=== PATIENT | female | born 1970 | race Hispanic/Latino ===

== ENCOUNTER 2018-02-22 18:11 | Emergency (ER) | payer BC, OTHER ==
[~2018-02-22] VITALS: Ht 154.9 cm; Wt 77.1 kg
[~2018-02-22 18:11] MED LIST: AMARYL2 MG PO; ASA81EC PO; Aspirin PO; BENICAR20 MG PO; BYSTOLIC10 MG PO; CATAPRES0.1 MG PO; CYCLOBENZAPRINE10 MG PO; DEXAMETHASONE1.5 MG PO; GLIMEPIRIDE2 MG PO; GLUCOPHAGE XL500 MG PO; HYDRALAZINE HCL25 MG PO; HYDROCET 5-5001 EACH PO; HYDROXYCHLOROQ200 MG PO; Hydralazine Hcl PO; Hydrochlorothiazide PO; JENTADUETO 2.51 EAC2 PO; LOPRESSOR25 MG PO; LYRICA75 MG PO; METFORMIN HCL500 MG PO; NUCYNTA75 MG PO; PEPCID20 MG PO; TRIBENZOR 40-11 EAC1 PO; TYLENOL # 31 EA PO; Z TRIBENZOR PO; Z.0.AMARYL2 MG PO; Z.0.BYSTOLIC5 MG; Z.0.LEVOTHYROXINE25 PO; Z.0.VICTOZA 2-0.6 MG IM; Z.1.ISOSORBIDE MONO6 PO; ZOCOR40 MG PO; [UNRECOGNIZED DRUG - MIXTURE] PO
[2018-02-22] MEDS ORDERED: DIATRIZOATE MEGL/DIATRIZOA SOD 30 ML BTL PO ONE (22:16)
[2018-02-22 22:28] LABS: BASOPHILS # (AUTO) 0.1 (0.0-0.1); BASOPHILS % 1.2 % (0.0-1.0); EOSINOPHILS # (AUTO) 0.2 (0.0-0.4); EOSINOPHILS % 2.8 % (0.0-6.0); HEMATOCRIT 43.9 % (34.2-44.1); HEMOGLOBIN 14.3 g/dL (12.0-16.0); LYMPHOCYTES # (AUTO) 2.2 (1.0-3.2); LYMPHOCYTES % 29.4 % (18.0-39.1); MEAN CORPUSCULAR HEMOGLOBIN 27.1 pg (28-32); MEAN CORPUSCULAR HGB CONC 32.6 g/dL (31-35); MEAN CORPUSCULAR VOLUME 83.1 fL (81-99); MONOCYTES # (AUTO) 0.8 (0.2-0.8); NEUTROPHILS # (AUTO) 4.1 (2.1-6.9); NEUTROPHILS % 55.5 % (38.7-80.0); PLATELET COUNT 214 x10e3/uL (140-360); RED BLOOD COUNT 5.28 x10e6/uL (3.6-5.1); RED CELL DISTRIBUTION WIDTH 13.7 % (11.7-14.4)
[2018-02-22 22:35] LABS: BILIRUBIN,URINE NEGATIVE (NEGATIVE); CLARITY,URINE SL CLOUDY (CLEAR); COLOR,URINE YELLOW (YELLOW); KETONES,URINE NEGATIVE (NEGATIVE); LEUKOCYTE ESTERASE ,URINE NEGATIVE (NEGATIVE); NITRITE,URINE NEGATIVE (NEGATIVE); PROTEIN,URINE DIPSTICK TRACE (NEGATIVE); URINE UROBILINOGEN 0.2 mg/dL (0.2 - 1)
[2018-02-22 22:36] LABS: PREGNANCY TEST, URINE NEGATIVE (NEGATIVE)
[2018-02-22 22:45] LABS: ALBUMIN 4.1 g/dL (3.5-5.0); ALBUMIN/GLOBULIN RATIO 1.1 (0.8-2.0); ANION GAP 11.8 mmol/L (8-16); CALCIUM 9.8 mg/dL (8.4-10.2); CREATININE, SERUM 1.18 mg/dL (0.57-1.11); POTASSIUM 3.8 mmol/L (3.5-5.1)
[2018-02-22] MEDS ORDERED: MORPHINE SULFATE 2 MG/ML SYR IV STA (22:52)
[2018-02-22 22:59] LABS: RBC,URINE 0-5 /HPF (0-5); WBC,URINE (MAN) 0-5 /HPF (0-5)
[2018-02-22 23:00] LABS: BACTERIA,URINE FEW /HPF; EPITHELIAL CELLS,URINE RARE /LPF
[2018-02-22] MEDS ORDERED: ONDANSETRON HCL 4 MG ORAL DISINTEGRATING TAB PO ONE (23:00)
--- NOTE | 2018-02-23 00:12 | Diagnostic Imaging Report ---
EXAM: CT Abdomen and Pelvis WITHOUT contrast INDICATION: Abdominal pain, left lower quadrant. COMPARISON: None. TECHNIQUE: Abdomen and pelvis were scanned utilizing a multidetector helical scanner from the lung base to the pubic symphysis without administration of IV contrast. Absence of intravenous contrast decreases sensitivity for detection of focal lesions and vascular pathology. Coronal and sagittal reformations were obtained. Routine protocol was performed. IV CONTRAST: None. ORAL CONTRAST: Gastrografin RADIATION DOSE: Total DLP: 568.72 mGy*cm Estimated effective dose: (DLP x 0.015 x size factor) mSv COMPLICATIONS: None FINDINGS: LINES and TUBES: None. LOWER THORAX: Unremarkable HEPATOBILIARY: No focal hepatic lesions. No biliary ductal dilation. GALLBLADDER: No radio-opaque stones or sludge. No wall thickening. SPLEEN: No splenomegaly. PANCREAS: No focal masses or ductal dilatation. ADRENALS: No adrenal nodules KIDNEYS/URETERS: No hydronephrosis. No cystic or solid mass lesions. No stones. GI TRACT: No abnormal distention, wall thickening, or evidence of bowel obstruction. Appendix is normal. PELVIC ORGANS/BLADDER: The uterus is absent. Bilateral ovaries are unremarkable. LYMPH NODES: No lymphadenopathy. VESSELS: Unremarkable. PERITONEUM / RETROPERITONEUM: No free air or fluid. BONES: There are moderate degenerative changes in the lower lumbar spine. SOFT TISSUES: Unremarkable. IMPRESSION: 1. No evidence of acute intra-abdominal or pelvic abnormality. Signed by: Dr. Nabeel Corey M.D. on 02/23/2018 12:08 AM
[2018-02-23 00:57] VITALS: BP 154/96
== END 2018-02-23 01:26 | disposition home or self-care (01) ==
LOC: ER 18:11
DX: R10.32 Left lower quadrant pain (principal); R11.0 Nausea; I10 Essential (primary) hypertension; E11.9 Type 2 diabetes mellitus without complications; E78.5 Hyperlipidemia, unspecified
CPT/HCPCS: 36415; 74176; 80053; 81001; 81025; 82150; 83690; 85025; 99284; J2270

== ENCOUNTER 2019-01-22 15:50 | Emergency (ER) | payer BC, OTHER ==
[~2019-01-22] VITALS: Ht 154.9 cm; Wt 77.1 kg
--- OUTSIDE RECORDS SUMMARY | 2019-01-22 15:52 | XMS REPORT ---
Author Author [facility] Address Unknown Phone Unavailable Care Team Providers Care Hop Separator Name Role Phone Calli OTERO Unavailable Unavailable Problems This patient has no known problems. Allergies, Adverse Reactions, Alerts This patient has no known allergies or adverse reactions. Medications This patient has no known medications. Results Test Description Test Time Test Comments Text Results Atomic Results Result Comments CT ABDOMEN/PELVIS WO 2018-02-23 00:06:00 [place] [address] Patient Name: IRENA VILLEGAS MR #: [id number] : 1970 Age/Sex: 48/F Req #: [id number] Adm Physician: Ordered by: SHERIN SALDAÑA MD Report #: [id number] Location: ER Room/Bed: Procedure: [id number] CT/CT ABDOMEN/PELVIS WO Exam Date: Exam Time: REPORT STATUS: Signed EXAM: CT Abdomen and Pelvis WITHOUT contrast INDICATION: Abdominal pain, left lower quadrant. COMPARISON: None. TECHNIQUE: Abdomen and pelvis were scanned utilizing a multidetector helical scanner from the lung base to the pubic symphysis without administration of IV contrast. Absence of intravenous contrast decreases sensitivity for detection of focal lesions and vascular pathology. Coronal and sagittal reformations were obtained. Routine protocol was performed. IV CONTRAST: None. ORAL CONTRAST: Gastrografin RADIATION DOSE: Total DLP: 568.72 mGy*cm Estimated effective dose: (DLP x 0.015 x size factor) mSv COMPLICATIONS: None FINDINGS: LINES and TUBES: None. LOWER THORAX: Unremarkable HEPATOBILIARY: No focal hepatic lesions. No biliary ductal dilation. GALLBLADDER: No radio-opaque stones or sludge. No wall thickening. SPLEEN: No splenomegaly. PANCREAS: No focal masses or ductal dilatation. ADRENALS: No adrenal nodules KIDNEYS/URETERS: No hydronephrosis. No cystic or solid mass lesions. No stones. GI TRACT: No abnormal distention, wall thickening, or evidence of bowel obstruction. Appendix is normal. PELVIC ORGANS/BLADDER: The uterus is absent. Bilateral ovaries are unremarkable. LYMPH NODES: No lymphadenopathy. VESSELS: Unremarkable. PERITONEUM / RETROPERITONEUM: No free air or fluid. BONES: There are moderate degenerative changes in the lower lumbar spine. SOFT TISSUES: Unremarkable. IMPRESSION: 1. No evidence of acute intra-abdominal or pelvic abnormality. Signed by: Dr. Nabeel Corey M.D. on 02/23/2018 12:08 AM Dictated By: NABEEL DUDLEY MD COPY TO: SHERIN SALDAÑA MD
[2019-01-22 16:41] LABS: BASOPHILS # (AUTO) 0.1 (0.0-0.1); BASOPHILS % 1.1 % (0.0-1.0); EOSINOPHILS # (AUTO) 0.1 (0.0-0.4); EOSINOPHILS % 1.5 % (0.0-6.0); HEMOGLOBIN 13.9 g/dL (12.0-16.0); LYMPHOCYTES # (AUTO) 1.6 (1.0-3.2); LYMPHOCYTES % 21.2 % (18.0-39.1); MEAN CORPUSCULAR HEMOGLOBIN 27.1 pg (28-32); MEAN CORPUSCULAR HGB CONC 32.3 g/dL (31-35); MONOCYTES # (AUTO) 0.8 (0.2-0.8); MONOCYTES % 10.4 % (4.4-11.3); NEUTROPHILS # (AUTO) 4.9 (2.1-6.9); NEUTROPHILS % 65.5 % (38.7-80.0); PLATELET COUNT 210 x10e3/uL (140-360); RED BLOOD COUNT 5.12 x10e6/uL (3.6-5.1); RED CELL DISTRIBUTION WIDTH 13.2 % (11.7-14.4)
[2019-01-22 16:49] LABS: INR 0.86; PROTHROMBIN TIME 12.2 seconds (11.9-14.5)
[2019-01-22 16:50] LABS: PARTIAL THROMBOPLASTIN TIME 27.1 seconds (23.8-35.5)
[2019-01-22 16:56] LABS: ALANINE AMINOTRANSFERASE 48 IU/L (0-55); ALBUMIN 3.5 g/dL (3.5-5.0); ALKALINE PHOSPHATASE 119 IU/L (40-150); ANION GAP 12.9 mmol/L (8-16); BLOOD UREA NITROGEN 20 mg/dL (7-26); BUN/CREATININE RATIO 16 (6-25); CALCIUM 9.7 mg/dL (8.4-10.2); CARBON DIOXIDE 25 mmol/L (22-29); CHLORIDE 99 mmol/L (98-107); CREATINE KINASE 114 IU/L (29-168); CREATININE, SERUM 1.24 mg/dL (0.57-1.11); EST GLOMERULAR FILTRATION RATE 46 ML/MIN (60-); POTASSIUM 3.9 mmol/L (3.5-5.1); SODIUM 133 mmol/L (136-145)
[2019-01-22 16:59] LABS: GLUCOSE 484 mg/dL (74-118)
[2019-01-22] MEDS ORDERED: DEXTROSE 50% SYRINGE 50 ML IV STA (17:04)
[2019-01-22] MEDS ORDERED: DEXTROSE 50% SYRINGE 50 ML IV ONE (17:08)
[2019-01-22 17:16] LABS: CLARITY,URINE SL CLOUDY (CLEAR); COLOR,URINE YELLOW (YELLOW); LEUKOCYTE ESTERASE ,URINE NEGATIVE (NEGATIVE); NITRITE,URINE NEGATIVE (NEGATIVE); PROTEIN,URINE DIPSTICK 1+ (NEGATIVE)
[2019-01-22 17:17] LABS: BILIRUBIN,URINE NEGATIVE (NEGATIVE); KETONES,URINE NEGATIVE (NEGATIVE)
[2019-01-22 17:19] LABS: AMPHETAMINES SCREEN,URINE NEGATIVE (NEGATIVE); BENZODIAZEPINES SCREEN,URINE NEGATIVE (NEGATIVE); PHENCYCLIDINE SCREEN,URINE NEGATIVE (NEGATIVE); URINE UROBILINOGEN 0.2 mg/dL (0.2 - 1)
--- NOTE | 2019-01-22 17:24 | Diagnostic Imaging Report ---
EXAMINATION: CHEST 2 VIEWS INDICATION: Chest pain. COMPARISON: None FINDINGS: TUBES and LINES: None. LUNGS: Bibasilar subsegmental atelectasis. There is no evidence of pneumonia or pulmonary edema. PLEURA: No pleural effusion or pneumothorax. HEART AND MEDIASTINUM: The cardiomediastinal silhouette is unremarkable. BONES AND SOFT TISSUES: No acute osseous lesion. Soft tissues are unremarkable. UPPER ABDOMEN: No free air under the diaphragm. IMPRESSION: No acute thoracic abnormality. Signed by: Dr. Justin Koo M.D. on 01/22/2019 5:20 PM
[2019-01-22 17:28] LABS: BACTERIA,URINE MANY /HPF; EPITHELIAL CELLS,URINE MODERATE /LPF
--- NOTE | 2019-01-22 17:34 | Diagnostic Imaging Report ---
History: Headaches, high blood pressure Comparison studies: None Technique: Axial images were obtained from the skull base to the vertex. Coronal and sagittal reconstructions obtained from the axial data. Dose modulation, iterative reconstruction, and/or weight based adjustment of the mA/kV was utilized to reduce the radiation dose to as low as reasonably achievable. Intravenous contrast: None Findings: Scalp/skull: No abnormalities. No fractures, blastic or lytic lesions. Extra-axial spaces: No masses. No fluid collections. Brain sulci: Appropriate for age. Ventricles: Normal in size and configuration. No hydrocephalus. Parenchyma: A focal CSF like hypodense chronic lacunar insult is centered in the lateral aspect of the right putamen. No masses, hemorrhage, acute or chronic cortical vascular insults. Sellar/suprasellar region: No abnormalities Craniocervical junction: Patent foramen magnum. No Chiari one malformation. IMPRESSION: 1. No acute abnormalities. 2. 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 Signed by: Dr. Desean Donovan M.D. on 01/22/2019 5:30 PM
[2019-01-22] MEDS ORDERED: SODIUM CHLORIDE 0.9% 1000ML 1,000 ML IV STA (19:15)
[2019-01-22] MEDS ORDERED: INSULIN REGULAR, HUMAN 100 UNIT/1 ML 3ML VIAL IV ONE (19:15)
== END 2019-01-22 21:31 | disposition home or self-care (01) ==
LOC: ER 15:50
DX: R53.1 Weakness (principal); E11.65 Type 2 diabetes mellitus with hyperglycemia; I10 Essential (primary) hypertension; E78.5 Hyperlipidemia, unspecified
CPT/HCPCS: 36415; 70450; 71046; 80053; 80307; 81001; 82550; 82553; 82948; 83880; 84484; 85025; 85610; 85730; 93005; 99284; J1817; J7030; J7799

== ENCOUNTER 2019-08-30 22:57 | Observation (INO) | payer BC ==
[~2019-08-30] VITALS: Ht 154.9 cm; Wt 77.6 kg
[2019-08-30] MEDS ORDERED: ASPIRIN 81 MG CHEW TAB PO ONE (23:30)
[2019-08-30 23:45] LABS: BASOPHILS # (AUTO) 0.1 (0.0-0.1); BASOPHILS % 0.8 % (0.0-1.0); EOSINOPHILS # (AUTO) 0.1 (0.0-0.4); EOSINOPHILS % 2.4 % (0.0-6.0); HEMATOCRIT 41.6 % (34.2-44.1); HEMOGLOBIN 13.2 g/dL (12.0-16.0); LYMPHOCYTES # (AUTO) 1.6 (1.0-3.2); LYMPHOCYTES % 26.8 % (18.0-39.1); MEAN CORPUSCULAR HEMOGLOBIN 26.6 pg (28-32); MEAN CORPUSCULAR HGB CONC 31.7 g/dL (31-35); MEAN CORPUSCULAR VOLUME 83.9 fL (81-99); MONOCYTES # (AUTO) 0.6 (0.2-0.8); MONOCYTES % 10.9 % (4.4-11.3); NEUTROPHILS # (AUTO) 3.5 (2.1-6.9); NEUTROPHILS % 58.8 % (38.7-80.0); PLATELET COUNT 184 x10e3/uL (140-360); RED BLOOD COUNT 4.96 x10e6/uL (3.6-5.1); RED CELL DISTRIBUTION WIDTH 14.1 % (11.7-14.4)
[2019-08-31] VITALS (9 sets, daily range): BP systolic 154–189; BP diastolic 79–93
[2019-08-31 00:11] LABS: ALBUMIN 3.2 g/dL (3.5-5.0); ALBUMIN/GLOBULIN RATIO 0.9 (0.8-2.0); ANION GAP 13.7 mmol/L (8-16); CALCIUM 9.1 mg/dL (8.4-10.2); CREATININE, SERUM 1.21 mg/dL (0.57-1.11); POTASSIUM 3.7 mmol/L (3.5-5.1)
[2019-08-31 00:17] LABS: CREATINE KINASE MB 3.1 ng/mL (0-5.0)
[2019-08-31] MEDS ORDERED: HYDRALAZINE HCL 20 MG/ML VIAL ONE (00:23)
[2019-08-31] MEDS ORDERED: HYDRALAZINE HCL 20 MG/ML VIAL IV ONE (00:30)
--- NOTE | 2019-08-31 00:50 | NUR ---
patient informed in room regarding elevated glucose, patient states, " im sorry i didnt tell you but rich had a couple of beers", notified
[2019-08-31] MEDS ORDERED: INSULIN REGULAR, HUMAN 100 UNIT/1 ML 3ML VIAL SQ ONE (01:00)
--- NOTE | 2019-08-31 02:56 | Diagnostic Imaging Report ---
EXAMINATION: CHEST SINGLE (PORTABLE) INDICATION: Chest pain COMPARISON: Chest x-ray 01/22/2019 FINDINGS: TUBES and LINES: None. LUNGS: Lungs are well inflated. Lungs are clear. There is no evidence of pneumonia or pulmonary edema. PLEURA: No pleural effusion or pneumothorax. HEART AND MEDIASTINUM: The cardiomediastinal silhouette is unremarkable. BONES AND SOFT TISSUES: No acute osseous lesion. Soft tissues are unremarkable. UPPER ABDOMEN: No free air under the diaphragm. IMPRESSION: No acute thoracic radiographic abnormality. Signed by: Manuelito Velasco DO on 08/31/2019 2:53 AM
[2019-08-31] MEDS ORDERED: METOPROLOL TARTRATE INJ 1 MG/ML VIAL IV ONE (03:00)
[2019-08-31] MEDS ORDERED: METOPROLOL TARTRATE INJ 1 MG/ML VIAL IV PRN (03:15)
[2019-08-31] MEDS ORDERED: AMLODIPINE BESYL5 MG PO (04:59)
[2019-08-31] MEDS ORDERED: ACETAMINOPHEN 325 MG TAB PO PRN (05:30)
[2019-08-31] MEDS ORDERED: ONDANSETRON HCL INJ 2MG/ML 2ML 2 MG/ML VIAL IV PRN (05:30)
[2019-08-31] MEDS ORDERED: DEXTROSE 50% SYRINGE 50 ML IV PRN (05:30)
[2019-08-31] MEDS ORDERED: ASPIRIN CHEW81 MG PO (05:37)
[2019-08-31] MEDS: METOPROLOL TARTRATE 25 MG TAB PO SCH ×3 (06:01→20:28)
[2019-08-31 07:32] LABS: CHOL/HDL RATIO 2.5 (3.0-3.6)
[2019-08-31 07:39] LABS: THYROID STIMULATING HORMONE 1.769 uIU/mL (0.350-4.940)
[2019-08-31 07:59] LABS: CREATINE KINASE MB 2.2 ng/mL (0-5.0)
[2019-08-31] MEDS: INSULIN LISPRO 100 UNIT/1 ML 3ML VIAL SQ SCH ×4 (08:00→21:05)
[2019-08-31] MEDS: AMLODIPINE BESYLATE 5 MG TAB PO SCH (08:00)
[2019-08-31] MEDS: ASPIRIN 81 MG CHEW TAB PO SCH (08:00)
[2019-08-31 09:23] LABS: B-TYPE NATRIURETIC PEPTIDE2 25.2 pg/mL (0-100)
[2019-08-31] MEDS: VALSARTAN 160 MG TAB PO SCH (13:24)
[2019-08-31] MEDS: CHLORTHALIDONE 25 MG TAB PO SCH (13:25)
[2019-08-31 14:50] LABS: CREATINE KINASE MB 1.5 ng/mL (0-5.0)
[2019-08-31] MEDS: INSULIN ASPART 70/30 100 UNITS/ML VIAL SC SCH (16:50)
--- NOTE | 2019-08-31 18:07 | Consultation ---
DATE OF CONSULTATION: 08/31/2019 Cardiac Consultation REASON FOR CONSULTATION: Hypertension. HISTORY OF PRESENT ILLNESS: Ms. Mariee is a 49-year-old female. She is well known to my practice. She has been noncompliant with medications as well as followup in the office. She comes in with chest pain and blood pressure that is markedly elevated in excess of 180 at the time of admission. Her blood pressure now is better controlled, still 170s to 190s. She admits to have missed her medications. PAST MEDICAL HISTORY: Listed above. ALLERGIES: PROMETHAZINE. SOCIAL HISTORY: The patient does not drink or smoke. 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 REVIEW OF SYSTEMS: Negative except as dictated in the History of Present Illness. PHYSICAL EXAMINATION: VITAL SIGNS: Afebrile, heart rate 74, and blood pressure 189/88. CARDIOVASCULAR: Regular rhythm. Systolic murmur. S4 gallop. LUNGS: Clear to auscultation bilaterally. ABDOMEN: Soft. MEDICATIONS: Reviewed. LABORATORY DATA: Telemetry shows sinus rhythm. Cardiac enzymes are negative. ASSESSMENT: 1. Hypertensive urgency. 2. Unstable angina. RECOMMENDATIONS: Echocardiogram and exercise nuclear stress test. Medication adjustment for better control of blood pressure. Compliance with followup and medications was stressed to the patient as well as her . I thank, Dr. Houston, for this consult. MD ELVA Lucio/JESSICA /[id number]
[2019-08-31] MEDS ORDERED: SIMVASTATIN 40 MG TAB PO SCH (21:00)
[2019-08-31] MEDS ORDERED: INSULIN GLARGINE 100 UNITS/ML VIAL SQ SCH (21:00)
[2019-09-01] VITALS: BP 166/97
[2019-09-01 03:13] LABS: BASOPHILS # (AUTO) 0.1 (0.0-0.1); BASOPHILS % 1.1 % (0.0-1.0); EOSINOPHILS # (AUTO) 0.2 (0.0-0.4); EOSINOPHILS % 3.2 % (0.0-6.0); HEMATOCRIT 39.9 % (34.2-44.1); HEMOGLOBIN 12.7 g/dL (12.0-16.0); LYMPHOCYTES # (AUTO) 2.2 (1.0-3.2); LYMPHOCYTES % 31.4 % (18.0-39.1); MEAN CORPUSCULAR HGB CONC 31.8 g/dL (31-35); MEAN CORPUSCULAR VOLUME 84.9 fL (81-99); MONOCYTES # (AUTO) 0.7 (0.2-0.8); MONOCYTES % 10.2 % (4.4-11.3); NEUTROPHILS # (AUTO) 3.8 (2.1-6.9); PLATELET COUNT 165 x10e3/uL (140-360); RED CELL DISTRIBUTION WIDTH 14.4 % (11.7-14.4)
[2019-09-01] MEDS ORDERED: HYDRALAZINE HCL 20 MG/ML VIAL IV PRN (03:30)
[2019-09-01 03:32] LABS: ANION GAP 14.5 mmol/L (8-16); BUN/CREATININE RATIO 24 (6-25); CARBON DIOXIDE 21 mmol/L (22-29); CHLORIDE 104 mmol/L (98-107); CREATININE, SERUM 0.96 mg/dL (0.57-1.11); EST GLOMERULAR FILTRATION RATE > 60 ML/MIN (60-); GLUCOSE 221 mg/dL (74-118); POTASSIUM 3.5 mmol/L (3.5-5.1); SODIUM 136 mmol/L (136-145)
[2019-09-01 03:39] LABS: BLOOD UREA NITROGEN 23 mg/dL (7-26)
[2019-09-01 04:00] VITALS: BP 181/84
[2019-09-01 04:12] VITALS: BP 145/69
[2019-09-01] MEDS ORDERED: Insulin Aspart 70/30 10ML Vial SC (05:06)
[2019-09-01] MEDS ORDERED: CHLORTHALIDONE25 MG PO (05:06)
[2019-09-01] MEDS ORDERED: Insulin Glargine SQ (05:06)
[2019-09-01] MEDS ORDERED: DIOVAN160 MG PO (05:06)
[2019-09-01] MEDS ORDERED: Insulin Lispro SQ (05:06)
[2019-09-01] MEDS: INSULIN ASPART 70/30 100 UNITS/ML VIAL SC SCH ×3 (07:30→16:51)
[2019-09-01] MEDS: INSULIN LISPRO 100 UNIT/1 ML 3ML VIAL SQ SCH ×3 (07:30→16:51)
[2019-09-01 07:51] VITALS: BP 152/93
[2019-09-01] MEDS: ASPIRIN 81 MG CHEW TAB PO SCH (09:00)
[2019-09-01] MEDS: VALSARTAN 160 MG TAB PO SCH (09:00)
[2019-09-01] MEDS: AMLODIPINE BESYLATE 5 MG TAB PO SCH (09:00)
[2019-09-01] MEDS: CHLORTHALIDONE 25 MG TAB PO SCH (09:00)
[2019-09-01] MEDS ORDERED: REGADENOSON 0.4 MG/5 ML SYR IV ONE (09:50)
--- NOTE | 2019-09-01 10:00 | NUR ---
Pt taken to [facility] at this time for stress test, Pt has been NPO since midnight.
[2019-09-01 10:17] VITALS: BP 152/93
--- NOTE | 2019-09-01 12:30 | NUR ---
Pt came back from stress test at this time. Denies any pain at this time. Pt is aox4 and able to verbalize needs.
--- NOTE | 2019-09-01 15:20 | NUR ---
Spoke with Dr. Lewis, cardiology at this time to ask when he will read stress test. Dr. Lewis states that he will be rounding later today to read stress test. Attending was notified.
[2019-09-01 15:46] VITALS: BP 137/80
[2019-09-01] MEDS: METOPROLOL TARTRATE 25 MG TAB PO SCH (16:51)
--- NOTE | 2019-09-01 19:37 | NUR ---
Pt discharged with all personal belongings. Pt teaching was done for insulin administration and pt verbalized understanding of insulin administration. Pt was able to correctly demonstrate correct insulin administration. Verbalized understanding of all discharge instructions.
--- NOTE | 2019-09-02 05:44 | Discharge Summary ---
ADMISSION DIAGNOSES: Chest pain, chronic systolic congestive heart failure, hypertension with chronic systolic congestive heart failure, type 2 diabetes, obesity with a BMI of 32.1. DISCHARGE DIAGNOSES: Chest pain, chronic systolic congestive heart failure, hypertension with chronic systolic congestive heart failure, type 2 diabetes, obesity with a BMI of 32.1., plus rule out myocardial infarction. HISTORY: Type 2 diabetes and hypertension. SURGICAL HISTORY: Right carpal tunnel release and partial hysterectomy. FAMILY HISTORY: The patient's mom and uncle had diabetes. The patient's grandpa had cancer. SOCIAL HISTORY: Occasional alcohol use. HOSPITAL COURSE: A 49-year-old female admits with complaints of substernal chest pain that began yesterday after getting out of the shower. The pain radiated to her back. She denies associated diaphoresis, shortness of breath, and dizziness. She also denies any recent illness. Once in the ER, her symptoms resolved. Troponins were negative x3. EKG showed normal sinus rhythm. Chest x-ray was negative. Echo showed an EF of 55 plus percent. A1c was 15.1%. TSH was within normal limits. Per Cardiology, the patient was taken to [facility] for a stress test, which was negative. The patient will discharge home with new prescriptions for aspirin, chlorthalidone, and valsartan per Cardiology along with insulin 70/30 of 10 units before meals, Lantus 20 units at bedtime, and sliding scale before meals and at bedtime. The patient will follow up with primary care and Cardiology in 1 to 2 weeks. The patient understands discharge instructions and agrees to plan. Vital signs are stable, the patient is afebrile. Dictated by Vivian Powell NP MD KENDRA Abarca/MODL /[id number]
--- NOTE | 2019-09-04 15:16 | Myoview Stress Test ---
DATE OF STUDY: 08/31/2019 12:52:00 Stress Test - Treadmill ONLY PROCEDURE TITLE: Rest/stress single isotope SPECT imaging with pharmacologic stress and gated SPECT imaging. INDICATION: Chest pain. PROCEDURE IN DETAIL: Pharmacologic stress testing was performed with regadenoson per protocol. The heart rate was 90 beats per minute at rest and increased to 99 beats per minute during the regadenoson infusion. The resting blood pressure was 125/71 mmHg and decreased to 99/60 mmHg, which is a normal response. The resting electrocardiogram demonstrated normal sinus rhythm. There were no ST-segment changes suggestive of myocardial ischemia. Myocardial perfusion imaging was performed at rest following injection of 11 mCi of tetrofosmin. At peak pharmacologic effect, the patient injected with 32 millicuries of tetrofosmin. Gated post-stress tomographic imaging was performed. FINDINGS: The overall quality of the study is fair. Left ventricular cavity is noted to be normal size on the rest and stress studies. SPECT images demonstrate homogeneous tracer distribution throughout the myocardium. Gated SPECT imaging reveals normal myocardial thickening and wall motion. The left ventricular ejection fraction was calculated to be 70%. IMPRESSION: Myocardial perfusion imaging is normal. Overall left ventricular systolic function was normal without regional wall motion abnormalities. Yareli Flores MD ABS/MODL /[id number]
== END 2019-09-01 18:45 | disposition home or self-care (01) ==
LOC: ER 22:57 → ERHOLD 08-31 02:19 → MED/SURG 08-31 03:25
PROVIDERS: ADMIT Internal Medicine; ATTEND Internal Medicine
DX: I11.0 Hypertensive heart disease with heart failure (principal); I50.22 Chronic systolic (congestive) heart failure; E66.9 Obesity, unspecified; Z68.32 Body mass index [BMI] 32.0-32.9, adult; I20.0 Unstable angina
CPT/HCPCS: 36415 ×3; 71045; 78452; 80048; 80053; 80061; 82550 ×2; 82553 ×2; 82948 ×2; 83036; 83880; 84443; 84484 ×2; 85025 ×2; 93005; 93017; 93306; 99284; A9502; G0378 ×2; J0360 ×2; J1815; J1817; J2785

== ENCOUNTER → 2020-03-18 | Day surgery (SDC) | payer BC ==
[2020-03-15 13:01] LABS: BASOPHILS # (AUTO) 0.1 (0.0-0.1); BASOPHILS % 1.5 % (0.0-1.0); EOSINOPHILS # (AUTO) 0.2 (0.0-0.4); EOSINOPHILS % 3.1 % (0.0-6.0); HEMATOCRIT 44.5 % (34.2-44.1); HEMOGLOBIN 13.7 g/dL (12.0-16.0); LYMPHOCYTES # (AUTO) 1.3 (1.0-3.2); LYMPHOCYTES % 25.8 % (18.0-39.1); MEAN CORPUSCULAR HEMOGLOBIN 26.8 pg (28-32); MEAN CORPUSCULAR HGB CONC 30.8 g/dL (31-35); MEAN CORPUSCULAR VOLUME 87.1 fL (81-99); MONOCYTES # (AUTO) 0.6 (0.2-0.8); MONOCYTES % 11.9 % (4.4-11.3); NEUTROPHILS % 57.5 % (38.7-80.0); PLATELET COUNT 200 x10e3/uL (140-360); RED BLOOD COUNT 5.11 x10e6/uL (3.6-5.1); RED CELL DISTRIBUTION WIDTH 14.1 % (11.7-14.4)
[~2020-03-18] MED LIST changes: +AMLODIPINE BESYL5 MG PO; +ASPIRIN CHEW81 MG PO; +CHLORTHALIDONE25 MG PO; +CLONAZEPAM0.5 MG PO; +DIOVAN160 MG PO; +HYOSCYAMINE 0.125 MG TAB ONE; +Insulin Aspart 70/30 10ML Vial SC; +Insulin Glargine SQ; +Insulin Lispro SQ; +OZEMPIC0.25 MG/0. SC; +SYNJARDY 12.5-1 EACH PO
[2020-03-18 16:05] VITALS: BP 162/99
--- NOTE | 2020-03-18 21:36 | Operative Report ---
DATE OF PROCEDURE: 03/18/2020 SURGEON: Vladimir Gregg MD PROCEDURE: Colonoscopy with polypectomy. INDICATIONS FOR COLONOSCOPY: Colorectal cancer screening. MEDICATIONS: The patient was done under MAC, please see anesthesiologist's note. PROCEDURE IN DETAIL: With the patient in the left lateral decubitus position, a flexible fiberoptic Olympus colonoscope was inserted into the rectum with ease and advanced all the way to the cecum. Two minute polyps were removed per cold biopsy forceps from the cecum. The scope was then withdrawn slowly. Mucosa overlying the ascending, transverse, descending, sigmoid, and rectum grossly appeared to be within normal limits. The colon was excessively irritable and spastic, and suboptimally visualized. The scope was then retroflexed into the distal rectum and the area around the dentate line appeared to be within normal limits. The scope was then straightened out, it was subsequently withdrawn. The patient tolerated the procedure well. IMPRESSION: 1. Colon excessively irritable and spastic suboptimally visualized. 2. Cecal polyps x2, removed per cold biopsy forceps. PLAN: 1. Follow up histology. 2. Initiate high-fiber, low-fat diet. 3. Initiate high-fiber supplement. 4. The patient might benefit from a followup colonoscopy in 3 years. MD BRIAN Simons/JESSICA /[id number] cc: Norm Dockery DO
== END | disposition home or self-care (01) ==
LOC: OR 12:20
PROVIDERS: ATTEND Internal Medicine Gastroenterology
DX: Z12.11 Encounter for screening for malignant neoplasm of colon (principal); D12.0 Benign neoplasm of cecum; K58.9 Irritable bowel syndrome, unspecified; I10 Essential (primary) hypertension; E11.9 Type 2 diabetes mellitus without complications; Z88.8 Allergy status to other drugs, medicaments and biological substances; Z01.810 Encounter for preprocedural cardiovascular examination; Z01.812 Encounter for preprocedural laboratory examination; Z11.59 Encounter for screening for other viral diseases; Z68.28 Body mass index [BMI] 28.0-28.9, adult
CPT/HCPCS: 36415; 45380; 82948; 85025; 87635; 93005

== ENCOUNTER 2020-05-07 16:08 | Emergency (ER) | payer BC, OTHER ==
[~2020-05-07] VITALS: Ht 154.9 cm; Wt 77.6 kg
[~2020-05-07 16:08] MED LIST changes: +ALIGN4 MG PO; +DICYCLOMINE HCL20 MG PO; +HYDROCHLOROTHIA25 MG PO; -HYOSCYAMINE 0.125 MG TAB ONE
--- NOTE | 2020-05-07 16:29 | Emergency Department Note ---
History of Present Illnes History of Present Illness Chief Complaint: Extremity Trauma/Pain History of Present Illness This is a 50 year old female 1 WEEK RIGHT THIGH PAIN AND BELOW KNEE NUMBNESS. Historian: Patient Vp Of [employer] Required: No Onset (how long ago): week(s) Location: RIGHT LEG Quality: PAIN/NUMB Radiation: Reports extremity Severity: moderate Onset quality: gradual Timing of current episode: constant Chronicity: recurrent Context: Denies recent illness, Denies trauma/injury Relieving factors: none Exacerbating factors: none Associated symptoms: Reports denies other symptoms Treatments prior to arrival: none Past Medical/Family History Physician Review I have reviewed the patient's past medical and family history. Any updates have been documented here. Past Medical History Recent Fever: No Clinical Suspicion of Infectio: No New/Unexplained Change in Ment: No Past Medical History: Hypertension, Diabetes, Hyperlipedemia Other Medical History: "geller of heart" PERIPHERAL NEUROPATHY Past Surgical History: Hysterectomy, PCI, Back Surgery Other Surgery: BACK SURGERY CARPAL TUNNEL HEART PROCEDURE TO FIX IRREGULAR HEARTBEAT. DOESN'T THINK IT'S ABLATION ablasion for svt? Social History Smoking Cessation: Never Smoker Counseling Performed: No Alcohol Use: None Any Illegal Drug Use: No TB Exposure/Symptoms: No Physically hurt or threatened: No Family History Family history of heart diseas: No Other Last Tetanus: UNK Any Pre-Existing Lines (PICC,: No Review of Systems Review of Systems Constitutional: Reports no symptoms EENTM: Reports no symptoms Cardiovascular: Reports no symptoms Respiratory: Reports no symptoms Gastrointestinal: Reports no symptoms Genitourinary: Reports no symptoms Musculoskeletal: Reports as per HPI Integumentary: Reports no symptoms Neurological: Reports no symptoms Psychological: Reports no symptoms Endocrine: Reports no symptoms Hematological/Lymphatic: Reports no symptoms Physical Exam Related Data Allergies: Coded Allergies: promethazine (Verified Allergy, Mild, ANXIETY, 05/07/20) Triage Vital Signs Vital Signs Date Time Temp Pulse Resp B/P (MAP) Pulse Ox O2 Delivery O2 Flow Rate FiO2 05/07/20 16:12 98.4 74 18 140/91 100 Room Air Vital signs reviewed: Yes Physical Exam CONSTITUTIONAL Constitutional: Present well-developed, Present well-nourished HENT HENT: Present normocephalic, Present atraumatic, Present oropharynx clear/moist, Present nose normal HENT L/R: Present left ext ear normal, Present right ext ear normal EYES Eyes: Reports PERRL, Reports conjunctivae normal NECK Neck: Present ROM normal PULMONARY Pulmonary: Present effort normal, Present breath sounds normal CARDIOVASCULAR Cardiovascular: Present regular rhythm, Present heart sounds normal, Present capillary refill normal, Present normal rate GASTROINTESTINAL Abdominal: Present soft, Present nontender, Present bowel sounds normal GENITOURINARY Genitourinary: Present exam deferred SKIN Skin: Present warm, Present dry MUSCULOSKELETAL Musculoskeletal: Present ROM normal, Present other (NEG SLR, NEG ALAN'S/NO TENDERNESS OF CALF, NO SWELLING/EDEMA); Absent tenderness NEUROLOGICAL Neurological: Present alert, Present oriented x 3, Present DTRs normal, Present no gross motor or sensory deficits, Present sensory deficit (DECR LIGHT TOUGH TO BILAT FEET AND RIGHT LATERAL LOWER LEG); Absent cranial nerve deficit, Absent abnormal DTRs, Absent abnormal gait, Absent weakness PSYCHOLOGICAL Psychological: Present mood/affect normal, Present judgement normal Assessment & Plan Medical Decision Making MDM SCIATICA, CHRONIC - PAIN MEDS, F/U PCP Reassessment Reassessment DC HOME, TYL#4, ROBAXIN 500, OTC IBUPROFEN, F/U DR DELANO SHOOK Assessment & Plan Final Impression: (1) Sciatica Depart Disposition: HOME, SELF-CARE Last Vital Signs Date Time Temp Pulse Resp B/P (MAP) Pulse Ox O2 Delivery O2 Flow Rate FiO2 05/07/20 16:12 98.4 74 18 140/91 100 Room Air Home Meds Active Scripts Metoprolol Tartrate (LOPRESSOR) 25 Mg Tab, 25 MG PO Q12H, #180 Prov:AMERICA GARCIA MD 07/29/15 Reported Medications Bifidobacterium Infantis (ALIGN) 4 Mg Capsule, 4 MG PO DAILY 05/07/20 Dicyclomine Hcl (DICYCLOMINE HCL) 20 Mg Tablet, 20 MG PO BID, TAB 05/07/20 Hydrochlorothiazide (HYDROCHLOROTHIAZIDE) 25 Mg Tablet, 25 MG PO DAILY, #30 TAB 05/07/20 Semaglutide (Ozempic) 0.25 Mg/0.2 Ml Pen.injctr, 0.5 MG SC Q WEEKLY, UNIT 03/12/20 Amlodipine Besylate (AMLODIPINE BESYLATE) 5 Mg Tablet, MG PO DAILY, #30 TAB 08/31/19 Discontinued Reported Medications Empagliflozin/Metformin HCl (Synjardy 12.5-1,000 mg Tablet) 1 Each Tablet, PO BID 03/12/20 Discontinued Scripts Chlorthalidone (CHLORTHALIDONE) 25 Mg Tablet, 25 MG PO DAILY for 30 Days Prov:ANGELINA DURAN NP 09/01/19 Medications in the ED Ketorolac Tromethamine 60 mg ONCE ONCE IM ; Start 05/07/20 at 16:30; Stop 05/07/20 at 16:31; Status UNV Acetaminophen/ Hydrocodone Bitart 1 ea NOW ONCE PO ; Start 05/07/20 at 16:30; Stop 05/07/20 at 16:31; Status UNV LETTY OBREGON MD May 07, 2020 16:29
[2020-05-07] MEDS ORDERED: KETOROLAC TROMETHAMINE 60 MG/2 ML VIAL IM ONE (16:30)
[2020-05-07] MEDS ORDERED: HYDROCODONE/APAP 7.5MG-325MG 1 EA TAB PO ONE (16:30)
--- OUTSIDE RECORDS SUMMARY | 2020-05-07 17:03 | XMS REPORT | Continuity of Care Document ---
Author Author [facility] t Organization [facility] Address [address] [place] [address] Phone Unavailable Care Team Providers Care Rack Carrier Name Role Phone Felipa DOCKERY DO PCP DIAMOND LOPEZ M.D. Attphys Unavailable VIOLA BARBOZA Attphys Unavailable Shmuel BONILLA Attphys Unavailable Phyllis JULIEN Attphys Unavailable Calli OTERO Attphys Unavailable VIOLA BARBOZA Admphys Unavailable Payers Payer Name Policy Type Policy Number Effective Date Expiration Date S deanne [employer] [facility] [id number] I [facility] Problems Condition Name Condition Details Condition Category Status Onset Date Resolution Date Last Treatment Date Treating Clinician Comments Source Diabetes mellitus Diabetes Problem Active 2015-07-27 00:00:00 [facility] Hypertension Hypertension Problem Active 2015-07-27 00:00:00 [facility] Chest pain Chest pain Problem Active 2014-12-18 00:00:00 [facility] Hypertension Hypertension Problem Active 2014-12-18 00:00:00 [facility] Brittle diabetes mellitus Problem Active 2014-06-01 00:00:00 [facility] Malignant essential hypertension Problem Active 2014-06-01 00:00:0 0 [facility] Rib pain on left side Rib pain on left side Problem Active [facility] Neck muscle spasm Neck muscle spasm Problem Active [facility] Chronic pain of both shoulders Chronic pain of both shoulders Problem Active [facility] Arthralgia of both knees Arthralgia of both knees Problem Active [facility] History of cardiomyopathy History of cardiomyopathy Problem Resolved [facility] History of Diabetes mellitus, type 2 History of Diabetes bakari litus, type 2 Problem Resolved [facility] History of High blood pressure History of High blood pressure Probl em Resolved [facility] Claudication of both lower extremities Claudication of both lower extremities Problem Active [facility] Prolonged capillary refill time Prolonged capillary refill time Pro blem Active [facility] NELLY positive NELLY positive Problem Active [facility] Allergies, Adverse Reactions, Alerts Allergy Name Allergy Type Status Severity Reaction(s) Onset Date Inacti ve Date Treating Clinician Comments Source Promethazine Allergy to Substance Active Mild ANXIETY 2019-06-29 00:00: 00 [facility] promethazine DA Active ME 2013-08-26 00:00:00 [facility] Phenergan Allergy to drug (finding) Active [facility] Family History Family Member Diagnosis Comments Start Date Stop Date Source Mother Family history of rheumatoid arthritis [facility] Social History Smoking Status Start Date Stop Date Source Never smoked tobacco (finding) U [facility] Medications Ordered Medication Name Filled Medication Name Start Date Stop Da te Current Medication? Ordering Clinician Indication Dosage Frequency Signature (SIG) Comments Components Source Ibuprofen 800 MG Oral Tablet Ibuprofen 800 MG Oral Tablet 2020-02-18 00:00:00 Yes Q0.3333D TAKE 1 TABLET 3 TIMES DAILY WITH FOOD A S NEEDED. [facility] Ondansetron 4 MG Oral Tablet Disintegrating Ondansetro n 4 MG Oral Tablet Disintegrating 2020-03-16 00:00:00 Yes 1 Q6H TAKE 1 TABLET Every 6 hours PRN nausea and comiting [facility] hydroCHLOROthiazide 25 MG Oral Tablet hydroCHLOROthiazide 25 MG Oral Tablet 2020-03-16 00:00:00 Yes TAKE 1 TABLET BY M OUTH DAILY [facility] Citalopram Hydrobromide 20 MG Oral Tablet Citalopram H ydrobromide 20 MG Oral Tablet 2020-03-16 00:00:00 Yes 1 QD TAKE 1 TABLET BLANKA LY. [facility] amLODIPine Besylate 5 MG Oral Tablet amLODIPine Besylate 5 M G Oral Tablet 2020-03-16 00:00:00 Yes 1 QD TAKE 1 TABLET YANY Y [facility] Metoprolol Tartrate 25 MG Oral Tablet Metoprolol Tartrate 25 MG Oral Tablet 2020-03-16 00:00:00 Yes 1 Q0.5D TAKE 1 TABLET TWIC E DAILY [facility] Synjardy XR 25-1000 MG Oral Tablet Extended Release 24 Hour Synjardy XR 25-1000 MG Oral Tablet Extended Release 24 Hour 2020-03-16 00:00:00 Yes 1 Q0.5D TAKE 1 TABLET TWICE DAILY [facility] Ozempic (1 MG/DOSE) 2 MG/1.5ML Subcutaneous Solution P en-injector Ozempic (1 MG/DOSE) 2 MG/1.5ML Subcutaneous Solution Pen-injector 2020-03-16 00:00:00 Yes 1.5 1xW INJECT 1.5 ML Weekly [facility] Chlorthalidone 25 Mg Tablet Chlorthalidone 25 Mg Tablet 2019-09-01 00:00:00 Yes Vivian Powell [employer] 25 Daily [facility] Insulin Aspart 70/30 10ML Vial 100 Units/Ml Ml Insulin Aspart 70/30 10ML Vial 100 Units/Ml Ml 2019-09-01 00:00:00 Yes Viviandavid Powell [employer] 10 Before Meals [facility] Insulin Glargine 100 Units/Ml Vial Insulin Glargine 100 Unit s/Ml Vial 2019-09-01 00:00:00 Yes Vivian [place] [employer] 20 Bedtime [facility] Insulin Lispro 100 Unit/1 Ml Vial Insulin Lispro 100 Unit/1 Ml Vial 2019-09-01 00:00:00 Yes Vivian M Andre [employer] 0 Before Meals And A t Bedtime [facility] Valsartan (Diovan) 160 Mg Tab Valsartan (Diovan) 160 Mg Tab 2018 00:00:00 Yes Vivian M [place] [employer] 320 Daily [facility] Aspirin (Aspirin Chew) 81 Mg Chew Aspirin (Aspirin Chew) 81 Mg Chew 2019-08-31 00:00:00 Yes Vivian Silvia CortesAndre [employer] 81 Daily [facility] Metoprolol Tartrate (Lopressor) 25 Mg Tab Metoprolol T artrate (Lopressor) 25 Mg Tab 2015-07-29 00:00:00 Yes Shawn Carrillo Md 25 Every 12 Hours [facility] Simvastatin (Zocor) 40 Mg Tablet Simvastatin (Zocor) 40 Mg T ablet 2015-07-29 00:00:00 Yes Shawn Carrillo Md 40 Bedtime [facility] Glimepiride (Amaryl) 2 Mg Tablet, 4 Mg Oral Glimepirid e (Amaryl) 2 Mg Tablet, 4 Mg Oral 2015-07-29 00:00:00 2019-09-01 00:00:00 No Shawn Carrillo Md 4 Twice Daily Before Meals [facility] Aspirin 325 Mg Tabec, 325 Mg Oral Aspirin 325 Mg Tabec, 325 Mg Oral 2015-07-29 00:00:00 2019-08-31 00:00:00 No Shawn Carrillo Md 325 Every M orning [facility] Hydralazine Hcl 25 Mg Tab, 50 Mg Oral Hydralazine Hcl 25 Mg Tab, 50 Mg Oral 2015-07-29 00:00:00 2019-08-31 00:00:00 No Shawn Carrillo Md 50 Three Times A Day [facility] Hydrochlorothiazide 25 Mg Tab, 25 Mg Oral Hydrochlorot hiazide 25 Mg Tab, 25 Mg Oral 2015-07-29 00:00:00 2019-08-31 00:00:00 No Shawn Carrillo Md 25 Daily [facility] Olmesartan Medoxomil (Benicar) 20 Mg Tablet, 40 Mg Ora l Olmesartan Medoxomil (Benicar) 20 Mg Tablet, 40 Mg Oral 2015-07-29 00:00:00 2016-08-16 00:00:00 No Shawn Carrillo Md 40 Daily [facility] Famotidine (Pepcid) 20 Mg Tablet, 20 Mg Oral Famotidin e (Pepcid) 20 Mg Tablet, 20 Mg Oral 2015-07-29 00:00:00 2016-08-15 00:00:00 No Shawn Carrillo Md 20 Twice Daily Before Meals [facility] [id number] 81 Mg Tabec, 81 Mg Oral [id number] 81 Mg Tabec, 81 Mg O ral 2014-12-19 00:00:00 2015-07-27 00:00:00 No Viola Barboza Md 81 Every Morning [facility] Famotidine (Pepcid) 20 Mg Tablet, 20 Mg Oral Famotidin e (Pepcid) 20 Mg Tablet, 20 Mg Oral 2014-12-19 00:00:00 2015-07-27 00:00:00 No Viola Barboza Md 20 Twice Daily Before Meals [facility] Amlodipine Besylate 5 Mg Tablet Amlodipine Besylate 5 Mg Tablet Yes Daily [facility] Cyclobenzaprine Hcl 10 Mg Tablet, 10 Mg Oral Cyclobenz aprine Hcl 10 Mg Tablet, 10 Mg Oral 2019-08-31 00:00:00 No 10 T hree Times A Day as needed for Muscle Spasms [facility] Hydroxychloroquine Sulfate 200 Mg Tablet, 400 Mg Oral Hydroxychloroquine Sulfate 200 Mg Tablet, 400 Mg Oral 2019-08-31 00:00:00 No 400 Daily [facility] Metformin Hcl 500 Mg Tablet, 500 Mg Oral Metformin Hcl 500 Mg Tablet, 500 Mg Oral 2019-08-31 00:00:00 No 500 Bedtime [facility] Glimepiride 2 Mg Tablet, 2 Mg Oral Glimepiride 2 Mg Tablet, 2 Mg Oral 2015-07-29 00:00:00 No 2 Twice A Day [facility] Hydralazine Hcl 25 Mg Tab, 100 Mg Oral Hydralazine Hcl 25 Mg Tab , 100 Mg Oral 2015-07-29 00:00:00 No 100 Twice A Day [facility] Nebivolol Hcl (Bystolic) 10 Mg Tablet, 10 Mg Oral Nebi volol Hcl (Bystolic) 10 Mg Tablet, 10 Mg Oral 2015-07-29 00:00:00 No 10 Daily [facility] Olmesartan Med/Amlodipine/Hctz (Tribenzo r 40-10-25 Mg Tablet) 1 Each Tablet, 1 Tab Oral Olmesartan Med/Amlodipine/Hctz (Tribenzo r 40-10-25 Mg Tablet) 1 Each Tablet, 1 Tab Oral 2015-07-27 00:00:00 No 1 Daily [facility] Clonidine Hcl (Catapres) 0.1 Mg Tablet, 1 Cap Oral Ro nidine Hcl (Catapres) 0.1 Mg Tablet, 1 Cap Oral 2014-12-18 00:00:00 No 1 As Needed [facility] Dexamethasone 1.5 Mg Tablet, 3 Cap Oral Dexamethasone 1.5 Mg Tablet, 3 Cap Oral 2014-12-18 00:00:00 No 3 Twice A Day [facility] Nebivolol Hcl (Bystolic) 5 Mg Tablet, Nebivolol Hcl (Bystolic) 5 Mg Tablet, 2014-12-18 00:00:00 No [facility] Acetaminophen/Codeine Phosphate (Tylenol # 3*) 1 Ea Ta b, 300 Mg Oral Acetaminophen/Codeine Phosphate (Tylenol # 3*) 1 Ea Tab, 300 Mg Oral 2014-06-01 00:00:00 No 300 Qhs [facility] Linagliptin/Metformin Hcl (Jentadueto 2. 5 Mg-1000 Mg Tab) 1 Each Tablet, 1 Tab Oral Linagliptin/Metformin Hcl (Jentadueto 2. 5 Mg-1000 Mg Tab) 1 Each Tablet, 1 Tab Oral 2014-06-01 00:00:00 No 1 Twice A Day [facility] Isosorbide Mononitrate 60 Mg Tab.sr.24h, 60 Mg Oral Is osorbide Mononitrate 60 Mg Tab.sr.24h, 60 Mg Oral 2014-03-30 00:00:00 No 60 R t Daily [facility] Olmesartan Med/Amlodipine/Hctz (Tribenzo r 40-5-25 Mg Tablet) 1 Each Tablet, 1 Tab Oral Olmesartan Med/Amlodipine/Hctz (Tribenzo r 40-5-25 Mg Tablet) 1 Each Tablet, 1 Tab Oral 2014-03-30 00:00:00 No 1 Daily [facility] Pregabalin (Lyrica) 75 Mg Cap, 75 Mg Oral Pregabalin ( Lyrica) 75 Mg Cap, 75 Mg Oral 2014-03-30 00:00:00 No 75 Three Times A Day [facility] Tapentadol Hcl (Nucynta) 75 Mg Tablet, 75 Mg Oral Tape ntadol Hcl (Nucynta) 75 Mg Tablet, 75 Mg Oral 2014-03-30 00:00:00 No 75 Q8 Hr s Prn [facility] Glimepiride (Amaryl) 2 Mg Tablet, 1 Tab Oral Glimepiri de (Amaryl) 2 Mg Tablet, 1 Tab Oral 2013-08-25 00:00:00 No 1 Twice Daily [facility] Liraglutide (Victoza 2-Ricardo) 0.6 Mg/0.1 Ml Pen.injctr, 1 Intramusc Liraglutide (Victoza 2-Ricardo) 0.6 Mg/0.1 Ml Pen.injctr, 1 Intramusc 00:00:00 No 1 Daily [facility] Metformin Hcl (Glucophage Xl) 500 Mg Tabcr, 500 Mg Ora l Metformin Hcl (Glucophage Xl) 500 Mg Tabcr, 500 Mg Oral 2013-08-25 00:00:00 No 500 Rt Bid [facility] Dhcodeine Bt/Acetaminophn/Caff (Trezix Capsule) 1 Each Capsule, 2 Tab Oral Dhcodeine Bt/Acetaminophn/Caff (Trezix Capsule) 1 Each Capsule, 2 Tab Oral 2012-06-06 00:00:00 No 2 Every 4 Hours [facility] Hydrocodone Bit/Acetaminophen (Hydrocet 5-500 Capsule) 1 Each Capsule, 1 - 2 Tab Oral Hydrocodone Bit/Acetaminophen (Hydrocet 5-500 Capsule) 1 Each Capsule, 1 - 2 Tab Oral 2012-06-06 00:00:00 No Every 4-6 Perez rs [facility] Levothyroxine Sodium 25 Mcg Tablet, 1 Tab Oral Levothy roxine Sodium 25 Mcg Tablet, 1 Tab Oral 2012-06-06 00:00:00 No 1 Daily [facility] Vital Signs Vital Name Observation Time Observation Value Comments Source Weight 2020-03-16 13:17:00 149 [lb_av] [facility] Body height 2020-03-16 13:17:00 61 [in_us] [facility] Body mass index (BMI) [Ratio] 2020-03-16 13:17:00 28.15 kg/m2 [facility] Body temperature 2020-03-16 13:17:00 97.8 [degF] [facility] Heart Rate 2020-03-16 13:17:00 83 /min [facility] Respiratory rate 2020-03-16 13:17:00 16 /min [facility] Systolic blood pressure 2020-03-16 13:16:00 146 mm[Hg] Loca tion: LUE; Position: Sitting [facility] Diastolic blood pressure 2020-03-16 13:16:00 86 mm[Hg] Loc ation: LUE; Position: Sitting [facility] Procedures Procedure Date / Time Performed Performing Clinician Sour e [QL] CREATINE KINASE, TOTAL 2020-04-01 00:00:00 [facility] [QL] NELLY PANEL, COMPREHENSIVE 2020-04-01 00:00:00 [facility] [QL] COMPLEMENT COMP C3 + C4 2020-04-01 00:00:00 [facility] XRAY Ribs unilateral [id number] 2020-03-16 [facility] Spine cervical 2 or 3 view [id number] 2020-03-16 00:00:00 [facility] XRAY Shoulder 2+ Views Bilateral [id number] 2020-03-16 00:00:00 [facility] XRAY Knee 1-2 Views Bilateral [id number] 2020-03-16 00:00:00 [facility] APPLY FOREARM SPLINT 2019-06-29 00:00:00 SHERIN SALDAÑA [facility] Computed tomography of brain without radiopaque contrast 201 05-22-08 00:00:00 ALLIE JULIEN [facility] X-ray of chest, two views 2019-01-22 00:00:00 ALLIE JULIEN [facility] History of Section [facility] History of Hysterectomy [facility] History of Bladder Surgery Unive [facility] History of Back Surgery [facility] Encounters Start Date/Time End Date/Time Encounter Type [facility] Encounter ID Source 2020-03-16 13:00:00 2020-03-16 13:00:00 Appointment; DIAMOND LOPEZ M.D. JAMALYARIA, FAROKH, M.D. [facility] [id number] [facility] 2019-08-31 02:19:00 2019-09-01 18:45:00 Discharged Inpatient (obs) [address] [facility] [id number] [facility] 2019-06-29 17:51:00 2019-06-29 19:10:00 Departed Emergency Room [address] [facility] [id number] [facility] 2019-01-22 15:50:00 2019-01-22 21:31:00 Departed Emergency Room [address] [facility] [id number] [facility] 2018-02-22 18:11:00 2018-02-23 01:26:00 Departed Emergency Room 1 JOSUÉ OTERO [facility] [id number] [facility] Results Test Description Test Time Test Comments Results Result Comments Source Novel Coronavirus 2018 nCoV 2020-02-28 23:40:00 Test Item Novel Coronavirus 2018 nCoV (test code = COVID19) Negative Nega tive Does patient have the clinical criteria consistent with COVID-19? YIs the patien t going to be discharged home? Y- CT ABD PELVIS W/O [id number] 14:27:00 Name: IRENA VILLEGAS [facility] : 1970 Age/S: 50 / F [address] [facility] Unit #: [id number] Loc: [place] [address] Phys: Farzad Dominguez MD Acct: [id number] Di s Date: Status: REG ER PHONE #: [phone] Exam Date: 02/25/2020 1413 FAX #: Reason: pain, pyelonephritis, diffuse pain EXAMS: CPT CODE: [id number] CT ABD PELVIS W/O CONT [id number] REASON FOR EXAM: pain, pyelonephritis, diffuse pain EXAM ORDER DATE: 02/25/2020 1:21 PM Ordering: Farzad Dominguez MD Attending:Farzad talamantes MD Location:[facility] PROCEDURE: - CT ABD PELVIS W/O CONT COMPARISON: FINDINGS: CT images of the abdomen and pel vis were obtained without IV and without oral contrast at 5mm. Dose modula tion, iterative reconstruction, and/or weight based adjustment of the MA/K V was utilized to reduce the radiation dose to as low as reasonably achievable. The liver, spleen, pancreas are grossly within nor mal limits. The gall bladder is unremarkable by CT. The kid neys are within normal limits. The urinary bladder is unremarkable. The colon, small bowel, and stomach are within normal limits without evidence of obstruction. The appendix is unremarkable No evid ence of free air or free fluid. The patient is status post hysterectomy IMPRESSION: No acute findings in the abdomen. Electron ically Signed by Fredrick Page on 02/25/2020 at 1427 Repo rted and signed by: Krystian Page M.D. CC: Farzad Dominguez MD; Norm Dockery DO Technologist:BOONE FITZPATRICK, RT(R),CT CTDI: DL P: Trnscb Date/Time: 02/25/2020 (1427) [email or web address] O rig Print D/T: S: 02/25/2020 ([id number]) PAGE 1 Signed Re port UR HCG [id number] 13:47:00* Test Item Value Reference Range Interpretation Comments UR HCG QUAL (test code = HCGQLU) NEGATIVE This HCGQL test is NOT applicable for MALE patients.Check with nurse about probable order error.If Tumor Marker Test needed, nurse should order test "HCGTU"(Test #550.67729) BASIC METABOLIC [id number] 13:41:00* Test Item Value Reference Range Interpretation Comments SODIUM (test code = NA) 135 mmol/L 136-145 L POTASSIUM (test code = K) 3.1 mmol/L 3.5-5.1 L CHLORIDE (test code = CL) 94 mmol/L 101-109 L CARBON DIOXIDE (test code = CO2) 29.9 mmol/L 21-32 N ANION GAP (test code = GAP) 14 mmol/L 10-20 N GLUCOSE (test code = GLU) 235 mg/dL 74-106 H BLOOD UREA NITROGEN (test code = BUN) 31 mg/dL 3-21 H GLOMERULAR FILTRATION RATE (test code = GFR) 31 mL/min >=60 Estimated GFR by using Modified MDRD formula.Chronic kidney disease is defined as either kidney damageor GFR <60 mL/min/1.73 m2 for >3 months. CREATININE (test code = CREAT) 1.71 mg/dL 0.55-1.3 H BUN/CREATININE RATIO (test code = BUN/CREA) 18.1 10-20 N CALCIUM (test code = CA) 8.6 mg/dL 8.4-10.2 N HEPATIC FUNCTION [id number] 13:41:00* Test Item Value Reference Range Interpretation Comments TOTAL PROTEIN (test code = PROT) 8.0 g/dL 6.5-8.4 N ALBUMIN (test code = ALB) 3.6 g/dL 3.4-4.8 N GLOBULIN (test code = GLOB) 4.4 G/DL 1-10 N ALBUMIN/GLOBULIN RATIO (test code = A/G) 0.82 RATIO 0.75-1.50 N BILIRUBIN TOTAL (test code = BILT) 0.80 mg/dL 0.0-1.0 N BILIRUBIN DIRECT (test code = BILD) 0.40 mg/dL 0.0-0.30 H SGOT/AST (test code = AST) 18 U/L 6-32 N SGPT/ALT (test code = ALT) 21 U/L 12-78 N N ote: Change in REFERENCE RANGE due to new reagent method. ALKALINE PHOSPHATASE TOTAL (test code = ALKP) 88 U/L 38-126 N [id number] 13:41:00* Test Item Value Reference Range Interpretation Comments LIPASE (test code = LIP) 120 U/L 128-270 L HCG SERUM [id number] 13:41:00* Test Item Value Reference Range Interpretation Comments HCG SERUM QUAL (test code = HCGQL) POSITIVE NEGATIVE A This HCGQL test is NOT applicable for MALE patients.Check with nurse about probable order error.If Tumor Marker Test needed, nurse should order test "HCGTU"(Test #550.09792) [id number] 13:41:00* Test Item Value Reference Range Interpretation Comments TROPONIN-I (test code = TROPI) <0.015 ng/mL 0.00-0.056 N BASIC METABOLIC [id number] 13:25:00* Test Item Value Reference Range Interpretation Comments SODIUM (test code = NA) 135 mmol/L 136-145 L POTASSIUM (test code = K) 3.1 mmol/L 3.5-5.1 L CHLORIDE (test code = CL) 94 mmol/L 101-109 L CARBON DIOXIDE (test code = CO2) 29.9 mmol/L 21-32 N ANION GAP (test code = GAP) 14 mmol/L 10-20 N GLUCOSE (test code = GLU) 235 mg/dL 74-106 H BLOOD UREA NITROGEN (test code = BUN) 31 mg/dL 3-21 H GLOMERULAR FILTRATION RATE (test code = GFR) 31 mL/min >=60 Estimated GFR by using Modified MDRD formula.Chronic kidney disease is defined as either kidney damageor GFR <60 mL/min/1.73 m2 for >3 months. CREATININE (test code = CREAT) 1.71 mg/dL 0.55-1.3 H BUN/CREATININE RATIO (test code = BUN/CREA) 18.1 10-20 N CALCIUM (test code = CA) 8.6 mg/dL 8.4-10.2 N HEPATIC FUNCTION [id number] 13:25:00* Test Item Value Reference Range Interpretation Comments TOTAL PROTEIN (test code = PROT) 8.0 g/dL 6.5-8.4 N ALBUMIN (test code = ALB) 3.6 g/dL 3.4-4.8 N GLOBULIN (test code = GLOB) 4.4 G/DL 1-10 N ALBUMIN/GLOBULIN RATIO (test code = A/G) 0.82 RATIO 0.75-1.50 N BILIRUBIN TOTAL (test code = BILT) 0.80 mg/dL 0.0-1.0 N BILIRUBIN DIRECT (test code = BILD) 0.40 mg/dL 0.0-0.30 H SGOT/AST (test code = AST) 18 U/L 6-32 N SGPT/ALT (test code = ALT) 21 U/L 12-78 N N ote: Change in REFERENCE RANGE due to new reagent method. ALKALINE PHOSPHATASE TOTAL (test code = ALKP) 88 U/L 38-126 N [id number] 13:25:00* Test Item Value Reference Range Interpretation Comments LIPASE (test code = LIP) 120 U/L 128-270 L HCG SERUM [id number] 13:25:00* Test Item Value Reference Range Interpretation Comments HCG SERUM QUAL (test code = HCGQL) NEGATIVE [id number] 13:25:00* Test Item Value Reference Range Interpretation Comments TROPONIN-I (test code = TROPI) <0.015 ng/mL 0.00-0.056 N BASIC METABOLIC [id number] 13:19:00* Test Item Value Reference Range Interpretation Comments SODIUM (test code = NA) 135 mmol/L 136-145 L POTASSIUM (test code = K) 3.1 mmol/L 3.5-5.1 L CHLORIDE (test code = CL) 94 mmol/L 101-109 L CARBON DIOXIDE (test code = CO2) 29.9 mmol/L 21-32 N ANION GAP (test code = GAP) 14 mmol/L 10-20 N GLUCOSE (test code = GLU) 235 mg/dL 74-106 H BLOOD UREA NITROGEN (test code = BUN) 31 mg/dL 3-21 H GLOMERULAR FILTRATION RATE (test code = GFR) 31 mL/min >=60 Estimated GFR by using Modified MDRD formula.Chronic kidney disease is defined as either kidney damageor GFR <60 mL/min/1.73 m2 for >3 months. CREATININE (test code = CREAT) 1.71 mg/dL 0.55-1.3 H BUN/CREATININE RATIO (test code = BUN/CREA) 18.1 10-20 N CALCIUM (test code = CA) 8.6 mg/dL 8.4-10.2 N HEPATIC FUNCTION [id number] 13:19:00* Test Item Value Reference Range Interpretation Comments TOTAL PROTEIN (test code = PROT) gram/dL 6.4-8.2 ALBUMIN (test code = ALB) g/dL 3.4-5.0 GLOBULIN (test code = GLOB) g/dL 2.7-4.2 ALBUMIN/GLOBULIN RATIO (test code = A/G) 0.75-1.50 BILIRUBIN TOTAL (test code = BILT) mg/dL 0.2-1.2 BILIRUBIN DIRECT (test code = BILD) mg/dL 0.0-0.20 SGOT/AST (test code = AST) IUnit/L 15-37 SGPT/ALT (test code = ALT) U/L 10-69 ALKALINE PHOSPHATASE TOTAL (test code = ALKP) IUnit/L 45-117 [id number] 13:19:00* Test Item Value Reference Range Interpretation Comments LIPASE (test code = LIP) Unit/L 144-286 HCG SERUM [id number] 13:19:00* Test Item Value Reference Range Interpretation Comments HCG SERUM QUAL (test code = HCGQL) NEGATIVE [id number] 13:19:00* Test Item Value Reference Range Interpretation Comments TROPONIN-I (test code = TROPI) ng/mL 0-0.045 URINALYSIS [id number] 13:18:00* Test Item Value Reference Range Interpretation Comments UA COLOR (test code = COLU) YELLOW YELLOW UA APPEARANCE (test code = APPU) HAZY CLEAR A UA GLUCOSE DIPSTICK (test code = DGLUU) 1000 (3+) mg/dL NEGATIVE A UA BILIRUBIN DIPSTICK (test code = BILU) NEGATIVE mg/dL NEGATIVE UA KETONE DIPSTICK (test code = KETU) 15 (1+) mg/dL NEGATIVE A UA SPECIFIC GRAVITY (test code = SGU) 1.015 1.001-1.035 UA BLOOD DIPSTICK (test code = KATRINA) 50 (2+) Frankie/uL NEGATIVE A UA PH DIPSTICK (test code = JOHNNY) 5.0 5.0-8.0 UA PROTEIN DIPSTICK (test code = PROU) 100 (2+) mg/dL Neg-15 A UA UROBILINIOGEN DIPSTICK (test code = URO) norm mg/dL 0.0-0.2 UA NITRITE DIPSTICK (test code = JANEY) NEGATIVE NEGATIVE UA LEUKOCYTE ESTERASE DIPSTICK (test code = LEUU) 500 Patel/uL (3+) u L NEGATIVE A UA WBC (test code = WBCU) TNTC per HPF 0-5 A UA RBC (test code = RBCU) 3-5 per HPF 0-5 A UA EPITHELIAL CELLS (test code = EPIU) Few (2-5/hpf) per HPF Few UA BACTERIA (test code = BACU) FEW per HPF NONE Urine Source? Clean CatchURINALYSIS [id number] 13:15:00* Test Item Value Reference Range Interpretation Comments UA COLOR (test code = COLU) YELLOW YELLOW UA APPEARANCE (test code = APPU) HAZY CLEAR A UA GLUCOSE DIPSTICK (test code = DGLUU) 1000 (3+) mg/dL NEGATIVE A UA BILIRUBIN DIPSTICK (test code = BILU) NEGATIVE mg/dL NEGATIVE UA KETONE DIPSTICK (test code = KETU) 15 (1+) mg/dL NEGATIVE A UA SPECIFIC GRAVITY (test code = SGU) 1.015 1.001-1.035 UA BLOOD DIPSTICK (test code = KATRINA) 50 (2+) Frankie/uL NEGATIVE A UA PH DIPSTICK (test code = JOHNNY) 5.0 5.0-8.0 UA PROTEIN DIPSTICK (test code = PROU) 100 (2+) mg/dL Neg-15 A UA UROBILINIOGEN DIPSTICK (test code = URO) norm mg/dL 0.0-0.2 UA NITRITE DIPSTICK (test code = JANEY) NEGATIVE NEGATIVE UA LEUKOCYTE ESTERASE DIPSTICK (test code = LEUU) 500 Patel/uL (3+) u L NEGATIVE A UA WBC (test code = WBCU) per HPF 0-5 UA RBC (test code = RBCU) per HPF 0-5 UA EPITHELIAL CELLS (test code = EPIU) per HPF Few UA BACTERIA (test code = BACU) per HPF NONE Urine Source? Clean CatchCBC W/O [id number] 13:14:00* Test Item Value Reference Range Interpretation Comments WHITE BLOOD CELL (test code = WBC) 16.5 K/mm3 4.5-12.5 H RED BLOOD CELL (test code = RBC) 5.34 mill/mm3 3.7-5.2 H HEMOGLOBIN (test code = HGB) 14.5 gram/dL 11.5-15.5 N HEMATOCRIT (test code = HCT) 45.2 % 36.0-46.0 N MEAN CELL VOLUME (test code = MCV) 84.6 fL 80-98 N MEAN CELL HGB (test code = MCH) 27.2 picogram 27.0-33.0 N MEAN CELL HGB CONCETRATION (test code = MCHC) 32.1 gram/dL 33.0-36. 0 L RED CELL DISTRIBUTION WIDTH (test code = RDW) 13.3 % 11.6-16. 2 N RED CELL DISTRIBUTION WIDTH SD (test code = RDW-SD) 42.1 fL 37 .0-51.0 N PLATELET COUNT (test code = PLT) 209 K/mm3 150-450 N MEAN PLATELET VOLUME (test code = MPV) 11.3 fL 6.7-11.0 H - US ABDOMEN [id number] 11:22:00 Name: IRENA VILLEGAS [facility] : 1970 Age/S: 50 / F [address] [facility] Unit #: [id number] Loc: [place] [address] Phys: Yen La Acct: [id number] Dis Date: Status: REG CLI PHONE #: [phone] Exam Date: 02/24/2020 1100 FAX #: [phone] Reason: R10.9,R11.10,Z89.898,R19.7 EXAMS: CPT CODE: [id number] US ABDOMEN COMPLETE 24400 HISTORY: Abdominal pain and diarrhea. COMPARISON: None available. Location: [facility]. The liver is hyperechogenic suggesting mild fibrofatty infiltration which limited evaluation for intrahepatic mass however no discrete lesions. The liver measured 13.6 cm in length. No intra or extrahepatic biliary ductal dilatation. CBD is normal at 5.1 mm. Main portal vein is patent with hepatopedal flow and normal spectral waveform. Gallbladder is without gallstones. No pericholecystic fluid or wall thickening. No ascites. Kidneys are free from hydronephrosis and calyceal stones. Normal echogenicity and texture. Right kidney measured 9 .8 cm in length. Left kidney measured 10.7 cm in length. The spleen is not enlarged at 9.6 cm in length. Visualized portions of the IV C, aorta and pancreas are normal however imaged incompletely. IM PRESSION: No gallstones. Fibrofatty infiltrated liver. Unremar kable spleen and kidneys. at 1122 Reported and signed by: Phyllis Sam M.D. CC: Norm Dockery DO; Yen La Technologist: KODY TUCKER RT(R),MOSES Tr nscb Date/Time: 02/24/2020 (1121) [email or web address] Orig Print D/ T: S: 02/24/2020 (1126) Probe: PAGE 1 Signed Report Stress Test - Treadmill ONLY 2019-09-04 12:46:00 [place] [address] Patient Name : IRENA VILLEGAS MR #: [id number] : 1970 Age/Sex: 49/F Adm Physician : VIOLA BARBOZA MD Admit Date : 08/31/19 Location : MED/SURG Room/Bed : [facility] REPORT : Myoview Stress Test DATE OF STUDY: 08/31/2019 12:52:00 Stress Test - Treadmill ONLY PROCEDURE TITLE: Rest/stress single isotope SPECT imaging with pharmacologic stress and gated SPECT imaging. INDICATION: Chest pain. PROCEDURE IN DETAIL: Pharmacologic stress testing was performed wit h regadenoson per protocol. The heart rate was 90 beats per minute at rest an d increased to 99 beats per minute during the regadenoson infusion. The resti ng blood pressure was 125/71 mmHg and decreased to 99/60 mmHg, which is a norm al response. The resting electrocardiogram demonstrated normal sinus rhythm. There were no ST-segment changes suggestive of myocardial ischemia. My ocardial perfusion imaging was performed at rest following injection of 11 mCi o f tetrofosmin. At peak pharmacologic effect, the patient injected with 32 mil licuries of tetrofosmin. Gated post-stress tomographic imaging was performed. FINDINGS: The overall quality of the study is fair. Left ventricular c avity is noted to be normal size on the rest and stress studies. SPECT images demonstrate homogeneous tracer distribution throughout the myocardium. Gated SPECT imaging reveals normal myocardial thickening and wall motion. The left ventricular ejection fraction was calculated to be 70%. IMPRESSION: M yocardial perfusion imaging is normal. Overall left ventricular systolic func tion was normal without regional wall motion abnormalities. _ Yareli Flores MD ABS/JESSICA /[id number] Signa ture Date Dictated By: YARELI FLORES MD Transcribed By: JESSICA on <Electronically signed by YARELI FLORES MD><<Signature on File>> 09/16/19 1544 COPY TO: Bedside [id number] 15:35:00* Test Item Value Reference Range Interpretation Comments Bedside Glucose (test code = 97928-8) 358 70-120 H Meter ID: [id number] [facility] 2019-09-01 03:39:00* Test Item Value Reference Range Interpretation Comments Sodium Level (test code = 2951-2) 136 136-145 [facility] Iqpjr5285-15-12 03:39:00* Test Item Value Reference Range Interpretation Comments Potassium Level (test code = 2823-3) 3.5 3.5-5.1 [facility] CampusChloride Ilgqp6015-33-43 03:39:00* Test Item Value Reference Range Interpretation Comments Chloride Level (test code = 2075-0) 104 98-107 [facility] CampusCarbon Dioxide Towvq5932-40-37 03:39:00* Test Item Value Reference Range Interpretation Comments Carbon Dioxide Level (test code = 2028-9) 21 22-29 L [facility] CampusAnion [id number] 03:39:00* Test Item Value Reference Range Interpretation Comments Anion Gap (test code = 38726-0) 14.5 8-16 [facility] CampusBlood Urea Hhrrmhln7705-19-63 03:39:00* Test Item Value Reference Range Interpretation Comments Blood Urea Nitrogen (test code = 3094-0) 23 7-26 VERIFIED PREVIOUS RESULTSThe Hospitals of [facility] CampusCreatinine 2019-09-01 03:39:00* Test Item Value Reference Range Interpretation Comments Creatinine (test code = 2160-0) 0.96 0.57-1.11 [facility] CampusBUN/Creatinine Wdktt6654-59-42 03:39:00* Test Item Value Reference Range Interpretation Comments BUN/Creatinine Ratio (test code = 3097-3) 24 6-25 [facility] CampusEstimat Glomerular Filtration Rate 2019-09-01 03:39:00* Test Item Value Reference Range Interpretation Comments Estimat Glomerular Filtration Rate (test code = 793067456) > 60 >60 Ranges were taken from the National Kidney Disease Education Program and the Sharron [employer] health[employer] literature.Reference ranges:60 or greater: Sqgura58-77 ( for 3 consecutive months): Chronic kidney disease 15 or less: Kidney failureThe Hospitals of Providence East CampusGlucose Iyolw1404-13-19 03:39:00* Test Item Value Reference Range Interpretation Comments Glucose Level (test code = OMP9838) 221 74-118 H [facility] CampusCalcium Ltlqc7196-59-22 03:39:00* Test Item Value Reference Range Interpretation Comments Calcium Level (test code = 74947-9) 9.0 8.4-10.2 [facility] CampusWhite Blood Zhwku4245-39-32 03:23:00* Test Item Value Reference Range Interpretation Comments White Blood Count (test code = 6690-2) 6.97 4.8-10.8 [facility] CampusRed Blood Ifajv6266-88-54 03:23:00* Test Item Value Reference Range Interpretation Comments Red Blood Count (test code = 789-8) 4.70 3.6-5.1 [facility] CampusHemoglobin2019-12-16 03:23:00* Test Item Value Reference Range Interpretation Comments Hemoglobin (test code = 06176-4) 12.7 12.0-16.0 [facility] CampusHematocrit2019-12-16 03:23:00* Test Item Value Reference Range Interpretation Comments Hematocrit (test code = 4544-3) 39.9 34.2-44.1 [facility] CampusMean Corpuscular Cacsmk9613-31-21 03:23:00* Test Item Value Reference Range Interpretation Comments Mean Corpuscular Volume (test code = 787-2) 84.9 81-99 [facility] CampusMean Corpuscular Kftxxmjbot4443-43-22 03:23:00* Test Item Value Reference Range Interpretation Comments Mean Corpuscular Hemoglobin (test code = 785-6) 27.0 28-32 L [facility] CampusMean Corpuscular Hemoglobin Concent 2019-09-01 03:23:00* Test Item Value Reference Range Interpretation Comments Mean Corpuscular Hemoglobin Concent (test code = 786-4) 31.8 31-35 [facility] CampusRed Cell Distribution Wxwse7584-66-64 03:23:00* Test Item Value Reference Range Interpretation Comments Red Cell Distribution Width (test code = 29604-7) 14.4 11.7 -14.4 [facility] CampusPlatelet Utrlr8452-09-91 03:23:00* Test Item Value Reference Range Interpretation Comments Platelet Count (test code = 777-3) 165 140-360 [facility] CampusNeutrophils (%) (Auto)2019-09-01 03:23:00 * Test Item Value Reference Range Interpretation Comments Neutrophils (%) (Auto) (test code = 82849-2) 54.0 38.7-80.0 [facility] CampusLymphocytes (%) (Auto)2019-09-01 03:23:00 * Test Item Value Reference Range Interpretation Comments Lymphocytes (%) (Auto) (test code = 736-9) 31.4 18.0-39.1 [facility] CampusMonocytes (%) (Auto)2019-09-01 03:23:00* Test Item Value Reference Range Interpretation Comments Monocytes (%) (Auto) (test code = 5905-5) 10.2 4.4-11.3 [facility] CampusEosinophils (%) (Auto)2019-09-01 03:23:00 * Test Item Value Reference Range Interpretation Comments Eosinophils (%) (Auto) (test code = 713-8) 3.2 0.0-6.0 [facility] CampusBasophils (%) (Auto)2019-09-01 03:23:00* Test Item Value Reference Range Interpretation Comments Basophils (%) (Auto) (test code = 706-2) 1.1 0.0-1.0 H [facility] CampusIM GRANULOCYTES %2019-09-01 03:23:00* Test Item Value Reference Range Interpretation Comments IM GRANULOCYTES % (test code = IM GRANULOCYTES %) 0.1 0.0- 1.0 [facility] CampusNeutrophils # (Auto)2019-09-01 03:23:00* Test Item Value Reference Range Interpretation Comments Neutrophils # (Auto) (test code = 751-8) 3.8 2.1-6.9 [facility] CampusLymphocytes # (Auto)2019-09-01 03:23:00* Test Item Value Reference Range Interpretation Comments Lymphocytes # (Auto) (test code = 81721-5) 2.2 1.0-3.2 [facility] CampusMonocytes # (Auto)2019-09-01 03:23:00* Test Item Value Reference Range Interpretation Comments Monocytes # (Auto) (test code = 742-7) 0.7 0.2-0.8 [facility] CampusEosinophils # (Auto)2019-09-01 03:23:00* Test Item Value Reference Range Interpretation Comments Eosinophils # (Auto) (test code = 711-2) 0.2 0.0-0.4 [facility] CampusBasophils # (Auto)2019-09-01 03:23:00* Test Item Value Reference Range Interpretation Comments Basophils # (Auto) (test code = 704-7) 0.1 0.0-0.1 [facility] CampusAbsolute Immature Granulocyte (auto 2019-09-01 03:23:00* Test Item Value Reference Range Interpretation Comments Absolute Immature Granulocyte (auto (marisol t code = Absolute Immature Granulocyte (auto) 0.01 0-0.1 [facility] CampusCreatine Mmhego9142-73-21 14:52:00* Test Item Value Reference Range Interpretation Comments Creatine Kinase (test code = 2157-6) 91 29-168 [facility] CampusCreatine Kinase OX2472-99-28 14:52:00* Test Item Value Reference Range Interpretation Comments Creatine Kinase MB (test code = 02415-9) 1.50 0-5.0 [facility] CampusTroponin [id number] 14:52:00* Test Item Value Reference Range Interpretation Comments Troponin I (test code = QFN6531) 0.009 0-0.300 [facility] CampusHemoglobin A1c Acotsfk7204-92-04 09:53:00 * Test Item Value Reference Range Interpretation Comments Hemoglobin A1c Percent (test code = Hemoglobin A1c Percent) 15.1 4.0-7.0 H [facility] CampusB-Type Natriuretic Etngopg2186-98-42 09:33:00* Test Item Value Reference Range Interpretation Comments B-Type Natriuretic Peptide (test code = 34444-4) 25.2 0-100 [facility] CampusThyroid Stimulating Hormone (TSH) 2019-08-31 07:49:00* Test Item Value Reference Range Interpretation Comments Thyroid Stimulating Hormone (TSH) (test code = 44385-7) 1.769 0.350-4.940 [facility] CampusTriglycerides Ytzvd0677-37-48 07:34:00* Test Item Value Reference Range Interpretation Comments Triglycerides Level (test code = 2571-8) 132 0-149 [facility] CampusCholesterol Qybzx4437-80-87 07:34:00* Test Item Value Reference Range Interpretation Comments Cholesterol Level (test code = 2093-3) 187 0-199 Less than 200 mg/dL Low Kcob546 - 239 mg/dL Borderline Ferk874 m g/dl and greater High Risk [facility] CampusLDL Cotxpmhctps8938-79-60 07:34:00* Test Item Value Reference Range Interpretation Comments LDL Cholesterol (test code = 2089-1) 87 60-130 [facility] CampusHDL Qonwytxfkdn6522-21-16 07:34:00* Test Item Value Reference Range Interpretation Comments HDL Cholesterol (test code = 2085-9) 74 40-60 H [facility] CampusCholesterol/HDL Tvdvr8305-29-70 07:34:00 * Test Item Value Reference Range Interpretation Comments Cholesterol/HDL Ratio (test code = 9830-1) 2.5 3.0-3.6 L [facility] CampusCHEST SINGLE (PORTABLE)2019-08-31 02:52:00 [place] [address] Patient Name: IRENA VILLEGAS MR #: [id number] : 1970 Age/Sex: 49/F Req #: [id number] Adm Physician: Ordered by: ALIRIO ALEXANDRA DO Report #: [id number] Location: ER Room/Bed: Procedure: DX/CHEST SINGLE (PORTABLE) Exam Date: 08/31/19 Exam Time: 0145 REPORT STATUS: S igned EXAMINATION: CHEST SINGLE (PORTABLE) INDICATION: Chest pain COMPARISON: Chest x-ray 01/22/2019 FINDINGS: TUBES an d LINES: None. LUNGS: Lungs are well inflated. Lungs are clear. There is no evidence of pneumonia or pulmonary edema. PLEURA: No pleural effusio n or pneumothorax. HEART AND MEDIASTINUM: The cardiomediastinal silhouette is unremarkable. BONES AND SOFT TISSUES: No acute osseous lesion. So ft tissues are unremarkable. UPPER ABDOMEN: No free air under the diaphra gm. IMPRESSION: No acute thoracic radiographic abnormality. Signed by: Manuelito Brown DO on 08/31/2019 2:53 AM Dictated By: OSMAR BROWN DO 2 Transcribed By: JESSICA on 08/31/19252 COPY TO: ALIRIO ALEXANDRA DO Total Zgccfksjo6280-51-28 00:21:00* Test Item Value Reference Range Interpretation Comments Total Bilirubin (test code = 1975-2) 0.4 0.2-1.2 [facility] CampusAspartate Amino Transf (AST/SGOT) 2019-08-31 00:21:00* Test Item Value Reference Range Interpretation Comments Aspartate Amino Transf (AST/SGOT) (test code = Aspartate Amino Transf (AST/SGOT)) 26 5-34 [facility] CampusAlanine Aminotransferase (ALT/SGPT) 2019-08-31 00:21:00* Test Item Value Reference Range Interpretation Comments Alanine Aminotransferase (ALT/SGPT) (test code = 1742-6) 30 0-55 [facility] CampusTotal Xlbexwq7041-92-24 00:21:00* Test Item Value Reference Range Interpretation Comments Total Protein (test code = 2885-2) 6.6 6.5-8.1 [facility] CampusAlbumin2019-12-15 00:21:00* Test Item Value Reference Range Interpretation Comments Albumin (test code = 1751-7) 3.2 3.5-5.0 L [facility] CampusGlobulin2019-12-15 00:21:00* Test Item Value Reference Range Interpretation Comments Globulin (test code = 87528-3) 3.4 2.3-3.5 [facility] CampusAlbumin/Globulin Ahvtm9312-71-79 00:21:00 * Test Item Value Reference Range Interpretation Comments Albumin/Globulin Ratio (test code = 1759-0) 0.9 0.8-2.0 [facility] CampusAlkaline Djzalavlvww9407-60-71 00:21:00* Test Item Value Reference Range Interpretation Comments Alkaline Phosphatase (test code = 6768-6) 113 40-150 [facility] CampusHAND 3+ VIEWS IUIIM0348-01-27 18:37:00 [facility] [address] [place] [address] Patient Name: IRENA VILLEGAS MR #: [id number] : 1970 Age/Sex: 49/F Req #: [id number] Adm Physician: Ordered by: STEVE ARGUELLES LAP WINDING MACHINE OPERATOR Report #: [id number] Location: ER Room/Bed: Procedure: [id number] DX /HAND 3+ VIEWS RIGHT Exam Date: 06/29/19 Exam Time: 1830 REPORT STATUS: Signed Ex am: Right hand radiographs- History: Trauma, punched wall. Comparison: None. Findings/Impression No evidence of acute fracture or malalignment. Soft tissue edema in the thenar eminence and index finger. Moderate deg enerative changes at the radiocarpal and first carpometacarpal joints. Scatter ed punctate hyperdensities likely reflect detector artifact. No specific evide nce of radiopaque foreign body. Signed by: Dr. Fernando Valverde MD on 06/29/2019 6:43 PM Dictated By: FERNANDO VALVERDE MD 42 Transcribed By: JESSICA on 06/29/191842 COPY TO: STEVE ARGUELLES LAP WINDING MACHINE OPERATOR - MRI BRAIN W/O [id number] 13:50:00 FAX: Ronald Johns MD [phone] [place]: St: ADM FAX: Norm Katz [phone] Name: IRENA VILLEGAS [facility] : 1970 Age/S: 49/F [address] [facility] Unit #: [id number] Loc: [address] [place] [address] Phys: Ronald Johns MD Acct: [id number] Dis Date: Status: ADM IN PHONE #: [phone] Exam Date: 02/13/2019 1333 FAX #: [phone] Reason: dizziness, hx cva, ru le out cva EXAMS: CPT CODE: [id number] MRI BRAIN W/O CONTRAST 35380 HISTORY: Dizziness/CVA. COMPARISON: Head CT from . MRI brain without contrast: No acute te rritorial vascular or acute lacunar infarction. No MR evidence for hemorrh age. No extra-axial fluid collections. Periventricular white matter ischem ic change. 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 No herniation, hydrocephalu s or midline shift. Fourth ventricle is midline. Expected fl ow-voids visible within the major intracranial vasculature. VII and VIII c omplex are symmetrical and normal. Mastoid air cells are clear. Sinuses ar e clear. Intraorbital contents are unremarkable. Midbrain, ronak an d medulla are without mass effect. No cerebellar ectopia. Pituitary gland, optic chiasm and corpus callosum are normal. Clivus demonstrated normal m arrow signal. Symmetrical hippocampi without mesial temporal sclerosis. No parenchymal mass on this noncontrast exam. IMPRESSION: No acute territorial vascular or acute lacunar infarction. Periventricular white matter ischemic change. Electronically Sign ed by Fredrick Sam on 02/13/2019 at 1350 Reported a nd signed by: Anibal Sam M.D. CC: Ronald Johns MD; Norm Dockery DO Technologist: Ekaterina Osorio RT(R)(MR) Trnscrd Date/Time/By: 02/13/2019 (1917) : By: [email or web address] Orig Print D/T: S: 02/13/2019 (8109) PAGE 1 Signed Report [id number] 12:09:00 * Test Item Value Reference Range Interpretation Comments GLUBED (test code = GLUBED) 295 mg/dL 74-106 H Performed by certified track machine operator repairer at [facility] AAJCGE3009-01-18 06:21:00* Test Item Value Reference Range Interpretation Comments GLUBED (test code = GLUBED) 274 mg/dL 74-106 H Performed by certified track machine operator repairer at [facility] BASIC METABOLIC UBXMW1279-72-27 03:37:00* Test Item Value Reference Range Interpretation Comments SODIUM (test code = NA) 138 mmol/L 136-145 RESU LT VERIFIED BY REPEAT ANALYSIS POTASSIUM (test code = K) 4.1 mmol/L 3.5-5.1 N CHLORIDE (test code = CL) 102.0 mmol/L 98-107 N CARBON DIOXIDE (test code = CO2) 27.0 mmol/L 21-32 N ANION GAP (test code = GAP) 13.1 10-20 N GLUCOSE (test code = GLU) 332 mg/dL 74-106 H BLOOD UREA NITROGEN (test code = BUN) 29 mg/dL 7-18 H GLOMERULAR FILTRATION RATE (test code = GFR) 53 mL/min >=60 Estimated GFR by using Modified MDRD formula.Chronic kidney disease is defined as either kidney damageor GFR <60 mL/min/1.73 m2 for >3 months. CREATININE (test code = CREAT) 1.10 mg/dL 0.55-1.02 H Note change in reference range due to change in reagent. BUN/CREATININE RATIO (test code = BUN/CREA) 26.4 10-20 H CALCIUM (test code = CA) 9.0 mg/dL 8.5-10.1 N LIPID PROFILE (CORONARY RISK)2019-02-13 03:37:00* Test Item Value Reference Range Interpretation Comments TRIGLYCERIDES (test code = TRIG) 146 mg/dL 20-150 N CHOLESTEROL (test code = CHOL) 198 mg/dL 0-200 N CHOLESTEROL/HDL RATIO (test code = CHOLHDL) 2.0 RATIO 0-4.9 N RISK ASSOCIATED WITH CHOL/HDL RATIOS: Risk Male Female1/2 AVERAGE 3.43 3.27AVERAGE 4.97 4.442X AVERAGE 9.55 7.053X AVERAGE 23.39 11.04 REFERENCE VALUE IS RELATED TO RISK LEVELS ASRECOMMENDED BY THE [facility]. HEART, LUNG, AND BLOOD INST. HDL CHOLESTEROL (test code = HDL) 80 mg/dL 40-60 H LIPOPROTEIN LDL (test code = LDL) 104 mg/dL 100-129 N RN PERSONNEL, CONTACT PHYSICIAN IMMEDIATELY IF THIS IS A STROKE, AMI OR CAROTID STENOSIS PATIENT WHEN THE LDL >100 (1ST OCCURENCE, THIS ADMISSION) Reference Interval: mg/dL mmol/L Optimal <100 <2.6Near/above optimal 100-129 2.6- 3.3Borderline High 130-159 3.4-4.1High 160-189 4.1-4.9Very High >=190 >=4.9========= This LDL result is a direct measurement.========= BASIC METABOLIC [id number] 03:08:00* Test Item Value Reference Range Interpretation Comments SODIUM (test code = NA) 138 mmol/L 136-145 RESU LT VERIFIED BY REPEAT ANALYSIS POTASSIUM (test code = K) 4.1 mmol/L 3.5-5.1 N CHLORIDE (test code = CL) 102.0 mmol/L 98-107 N CARBON DIOXIDE (test code = CO2) 27.0 mmol/L 21-32 N ANION GAP (test code = GAP) 13.1 10-20 N GLUCOSE (test code = GLU) 332 mg/dL 74-106 H BLOOD UREA NITROGEN (test code = BUN) mg/dL 7-18 GLOMERULAR FILTRATION RATE (test code = GFR) 53 mL/min >=60 Estimated GFR by using Modified MDRD formula.Chronic kidney disease is defined as either kidney damageor GFR <60 mL/min/1.73 m2 for >3 months. CREATININE (test code = CREAT) 1.10 mg/dL 0.55-1.02 H Note change in reference range due to change in reagent. BUN/CREATININE RATIO (test code = BUN/CREA) 10-20 CALCIUM (test code = CA) 9.0 mg/dL 8.5-10.1 N LIPID PROFILE (CORONARY RISK)2019-02-13 03:08:00* Test Item Value Reference Range Interpretation Comments TRIGLYCERIDES (test code = TRIG) mg/dL 20-150 CHOLESTEROL (test code = CHOL) 198 mg/dL 0-200 N CHOLESTEROL/HDL RATIO (test code = CHOLHDL) RATIO 0-4.9 HDL CHOLESTEROL (test code = HDL) mg/dL 40-60 LIPOPROTEIN LDL (test code = LDL) 104 mg/dL 100-129 N RN PERSONNEL, CONTACT PHYSICIAN IMMEDIATELY IF THIS IS A STROKE, AMI OR CAROTID STENOSIS PATIENT WHEN THE LDL >100 (1ST OCCURENCE, THIS ADMISSION) Reference Interval: mg/dL mmol/L Optimal <100 <2.6Near/above optimal 100-129 2.6- 3.3Borderline High 130-159 3.4-4.1High 160-189 4.1-4.9Very High >=190 >=4.9========= This LDL result is a direct measurement.========= [id number]-[id number] 03:00:00* Test Item Value Reference Range Interpretation Comments TROPONIN-I (test code = TROPI) <0.015 ng/mL 0-0.045 N COMMENTS TO THREAD SINGER: COLLECT 3 HOURS AFTER PREVIOUS [id number] 03:00:00* Test Item Value Reference Range Interpretation Comments GLYCOSYLATED HEMOGLOBIN (HA1C) (test code = GLYHGB) 12.7 % HbA1 4. 8-6.0 H ESTIMATED AVERAGE GLUCOSE (test code = EAG) 318 MG/DL [id number]-[id number] 23:11:00* Test Item Value Reference Range Interpretation Comments TROPONIN-I (test code = TROPI) <0.015 ng/mL 0-0.045 N COMMENTS TO THREAD SINGER: COLLECT 3 HOURS AFTER PREVIOUS SIZOFGZRCEPW6447-02-15 20:50:00* Test Item Value Reference Range Interpretation Comments GLUBED (test code = GLUBED) 328 mg/dL 74-106 H Performed by certified track machine operator repairer at [facility] [id number] 17:03:00* Test Item Value Reference Range Interpretation Comments GLUBED (test code = GLUBED) 333 mg/dL 74-106 H Performed by certified track machine operator repairer at [facility] URINALYSIS [id number] 15:59:00* Test Item Value Reference Range Interpretation Comments UA COLOR (test code = COLU) Light-Yellow YELLOW UA APPEARANCE (test code = APPU) CLEAR CLEAR UA GLUCOSE DIPSTICK (test code = DGLUU) >1000 (4+) mg/dL NEGATIVE UA BILIRUBIN DIPSTICK (test code = BILU) NEGATIVE mg/dL NEGATIVE UA KETONE DIPSTICK (test code = KETU) NEGATIVE mg/dL NEGATIVE UA SPECIFIC GRAVITY (test code = SGU) 1.031 1.001-1.035 UA BLOOD DIPSTICK (test code = KATRINA) Negative mg/dL NEGATIVE UA PH DIPSTICK (test code = JOHNNY) 5.0 5.0-8.0 UA PROTEIN DIPSTICK (test code = PROU) 20 (Trace) mg/dL NEGATIVE A UA UROBILINIOGEN DIPSTICK (test code = URO) Normal mg/dL NEGATIVE UA NITRITE DIPSTICK (test code = JANEY) NEGATIVE NEGATIVE UA LEUKOCYTE ESTERASE W REFLEX (test code = LEUUR) NEGATIVE Patel/uL NEGATIVE UA WBC (test code = WBCU) 0-5 per HPF 0-5 UA RBC (test code = RBCU) 0-2 #/HPF 0-5 UA EPITHELIAL CELLS (test code = EPIU) FEW per HPF FEW UA BACTERIA (test code = BACU) FEW #/HPF NONE A Urine Source? Clean [id number] 15:42:00* Test Item Value Reference Range Interpretation Comments GLUBED (test code = GLUBED) 415 mg/dL 74-106 H Performed by certified track machine operator repairer at [facility] - XR CHEST 1 [id number] 15:19:00 FAX: Jovana Espinoza DO [place]: B St: REG Name: IRENA CHEN [facility] : [birth year] Age/S: 49/F [address] [facility] Unit #: [id number] Loc: [place] [address] Phys: Jovana Espinoza DO Acct: [id number] Dis Date: Status: REG ER PHONE #: [phone] Exam Date: 02/12/2019 1500 FAX #: [phone] Reason: WEAKNESS EXAMS: CPT CODE: [id number] XR CHEST 1 V 88178 REASON FOR EXAM: WEAKNESS EXAM ORDER DATE: 02/12/2019 2:34 PM Ordering Fredrick: Yue Espinoza DO PROCEDURE: - XR CHEST 1 V COMPAR ADDI: FINDINGS: Portable AP frontal view of the chest obtained at 3:00 PM shows clear lungs without evidence of consolidation. There is no evidence of effusion. The heart size is within normal limits. Pulmon joleen vasculatures are unremarkable. IMPRESSION: No active diseas e. at 1519 Reported and signed by: Fredrick Harper C: Jovana Espinoza DO Technologist: Zo Salamanca(R); Evette Bradford RT(R) Trnscrd Date/Time/By: 02/12/2019 (8828) : By: Jagruti Orig Print D/T: S: 02/12/2019 (6565) PAGE 1 Signed Report BASIC METABOLIC [id number] 15:15:00* Test Item Value Reference Range Interpretation Comments SODIUM (test code = NA) 132 mmol/L 136-145 L POTASSIUM (test code = K) 4.0 mmol/L 3.5-5.1 N CHLORIDE (test code = CL) 98.0 mmol/L 98-107 N CARBON DIOXIDE (test code = CO2) 25.0 mmol/L 21-32 N ANION GAP (test code = GAP) 13.0 10-20 N GLUCOSE (test code = GLU) 442 mg/dL 74-106 H BLOOD UREA NITROGEN (test code = BUN) 30 mg/dL 7-18 H GLOMERULAR FILTRATION RATE (test code = GFR) 37 mL/min >=60 Estimated GFR by using Modified MDRD formula.Chronic kidney disease is defined as either kidney damageor GFR <60 mL/min/1.73 m2 for >3 months. CREATININE (test code = CREAT) 1.50 mg/dL 0.55-1.02 H Note change in reference range due to change in reagent. BUN/CREATININE RATIO (test code = BUN/CREA) 20.0 10-20 N CALCIUM (test code = CA) 9.5 mg/dL 8.5-10.1 N [id number] 15:15:00* Test Item Value Reference Range Interpretation Comments TROPONIN-I (test code = TROPI) <0.015 ng/mL 0-0.045 N - CT HEAD/BRAIN W/O [id number] 14:53:00 Name: IRENA VILLEGAS [facility] : 1970 Age/S: 49 / F [address] [facility] Unit #: [id number] Loc: [place] [address] Phys: Jovana Espinoza DO Acct: [id number] Dis Date: Status: REG ER PHONE #: [phone] Exam Date: 02/12/2019 1450 FAX #: [phone] Reason: dizzy, headache EXAMS: CPT CODE: [id number] CT HEAD/BRAIN W/O CONT 95730 REASON FOR EXAM: dizzy, headache EXAM ORDER DATE: 02/12/2019 2:34 PM Ordering MSandra: Jovana Espinoza DO PROCEDURE: - CT HEAD/BRAIN W/O CONT COMPARISON: FINDINGS: CT images of the brain were obtained without IV contrast. Dose modulation, iterative reconstruction, and/or weight based adjustment of the MA/KV was utilized to reduce the radiation dose to as low as reasonably achievable. The brain parenchyma is within normal limits. The wolf-white matter delineation is unremarkable. The ventricles, cisterns, and sulci are unremarkable. There is no evidence of hemorrhage, mass, mass effect. There is no evidence of acute infarct. The calvarium is intact. IMPRESSION: Chronic right basal ganglia infarct. No acute findings at 1453 Reported and signed by: Krystian Page M.D. CC: Jovana Espinoza DO Technologist:Yahaira JIN(R); SANDY Myers CTDI: DLP: Trnscb Date/Time: 02/12/2019 (4925) t.SDR.VTL Orig Print D/T: S: 02/12/2019 (2756) PAGE 1 Signed Report BASIC METABOLIC [id number] 14:50:00* Test Item Value Reference Range Interpretation Comments SODIUM (test code = NA) 132 mmol/L 136-145 L POTASSIUM (test code = K) 4.0 mmol/L 3.5-5.1 N CHLORIDE (test code = CL) 98.0 mmol/L 98-107 N CARBON DIOXIDE (test code = CO2) 25.0 mmol/L 21-32 N ANION GAP (test code = GAP) 13.0 10-20 N GLUCOSE (test code = GLU) 442 mg/dL 74-106 H BLOOD UREA NITROGEN (test code = BUN) 30 mg/dL 7-18 H GLOMERULAR FILTRATION RATE (test code = GFR) 37 mL/min >=60 Estimated GFR by using Modified MDRD formula.Chronic kidney disease is defined as either kidney damageor GFR <60 mL/min/1.73 m2 for >3 months. CREATININE (test code = CREAT) 1.50 mg/dL 0.55-1.02 H Note change in reference range due to change in reagent. BUN/CREATININE RATIO (test code = BUN/CREA) 20.0 10-20 N CALCIUM (test code = CA) 9.5 mg/dL 8.5-10.1 N [id number] 14:50:00* Test Item Value Reference Range Interpretation Comments TROPONIN-I (test code = TROPI) ng/mL 0-0.045 CBC W/O [id number] 14:48:00* Test Item Value Reference Range Interpretation Comments WHITE BLOOD CELL (test code = WBC) 6.2 K/mm3 4.5-12.5 N RED BLOOD CELL (test code = RBC) 5.42 mill/mm3 3.7-5.2 H HEMOGLOBIN (test code = HGB) 14.6 gram/dL 11.5-15.5 N HEMATOCRIT (test code = HCT) 45.9 % 36.0-46.0 N MEAN CELL VOLUME (test code = MCV) 84.7 fL 80-98 N MEAN CELL HGB (test code = MCH) 26.9 picogram 27.0-33.0 L MEAN CELL HGB CONCETRATION (test code = MCHC) 31.8 gram/dL 33.0-36. 0 L RED CELL DISTRIBUTION WIDTH (test code = RDW) 13.4 % 11.6-16. 2 N PLATELET COUNT (test code = PLT) 182 K/mm3 150-450 N MEAN PLATELET VOLUME (test code = MPV) 12.0 fL 6.7-11.0 H BASIC METABOLIC [id number] 14:48:00* Test Item Value Reference Range Interpretation Comments SODIUM (test code = NA) 132 mmol/L 136-145 L POTASSIUM (test code = K) 4.0 mmol/L 3.5-5.1 N CHLORIDE (test code = CL) 98.0 mmol/L 98-107 N CARBON DIOXIDE (test code = CO2) mmol/L 21-32 ANION GAP (test code = GAP) 10-20 GLUCOSE (test code = GLU) mg/dL 74-106 BLOOD UREA NITROGEN (test code = BUN) mg/dL 7-18 GLOMERULAR FILTRATION RATE (test code = GFR) mL/min >=60 CREATININE (test code = CREAT) mg/dL 0.55-1.02 BUN/CREATININE RATIO (test code = BUN/CREA) 10-20 CALCIUM (test code = CA) 9.5 mg/dL 8.5-10.1 N [id number] 14:48:00* Test Item Value Reference Range Interpretation Comments TROPONIN-I (test code = TROPI) ng/mL 0-0.045 Bedside Kjstuei9027-90-66 21:28:00* Test Item Value Reference Range Interpretation Comments Bedside Glucose (test code = 85640-4) 299 70-120 H Meter ID: [id number] [facility]als [facility] CampusBedside Glucose 2019-01-22 21:28:00* Test Item Value Reference Range Interpretation Comments Bedside Glucose (test code = 71942-6) 299 70-120 H Meter ID: [id number] Hospitals of [facility] CampusCreatine Kinase MB 2019-01-22 17:48:00* Test Item Value Reference Range Interpretation Comments Creatine Kinase MB (test code = 91710-2) 3.00 0-5.0 [facility] CampusTroponin [id number] 17:48:00* Test Item Value Reference Range Interpretation Comments Troponin I (test code = BKH6536) < 0.001 0-0.300 [facility] CampusCreatine Kinase [id number] 17:48:00* Test Item Value Reference Range Interpretation Comments Creatine Kinase MB (test code = 60747-6) 3.00 0-5.0 [facility] CampusTroponin [id number] 17:48:00* Test Item Value Reference Range Interpretation Comments Troponin I (test code = EPN4600) < 0.001 0-0.300 [facility] CampusCT BRAIN [id number] 17:29:00 [place] [address] Patient Name: IRENA VILLEGAS MR #: [id number] : 1970 Age/Sex: 49/F [facility] #: [id number] Req #: [id number] Adm Physician: Ordered by: ALLIE JULIEN MD Report #: [id number] Location: Room/Bed: Procedure: [id number] CT/ CT BRAIN WO Exam Date: 01/22/19 Exam Time: 1630 REPORT STATUS: Signed History: Heada ches, high blood pressure Comparison studies: None Technique: Ax ial images were obtained from the skull base to the vertex. Coronal and sagi ttal reconstructions obtained from the axial data. Dose modulation, iterative reconstruction, and/or weight based adjustment of the mA/kV was utilized to r educe the radiation dose to as low as reasonably achievable. Intravenous contrast: None Findings: Scalp/skull: No abnormalities. No fractur es, blastic or lytic lesions. Extra-axial spaces: No masses. No fluid c ollections. Brain sulci: Appropriate for age. Ventricles: Normal in size and configuration. No hydrocephalus. Parenchyma: A focal CSF like hypode nse chronic lacunar insult is centered in the lateral aspect of the right puta men. No masses, hemorrhage, acute or chronic cortical vascular insults. S ellar/suprasellar region: No abnormalities Craniocervical junction: Patent for amen magnum. No Chiari one malformation. IMPRESSION: 1. No acute abn ormalities. 2. 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 Si gned by: Dr. Jessenia York M.D. on 01/22/2019 5:30 PM Dictated By: MAGALY YORK MD, MD 1730 COPY TO: ALLIE JULIEN MD Urine [id number] 17:28:00* Test Item Value Reference Range Interpretation Comments Urine WBC (test code = 5821-4) NONE 0-5 [facility] Campus[facility] [id number] 17:28:00* Test Item Value Reference Range Interpretation Comments Urine RBC (test code = 83404-1) NONE 0-5 [facility] Bgsdcqrr2474-84-08 17:28:00* Test Item Value Reference Range Interpretation Comments Urine Bacteria (test code = 31547-4) MANY NONE H [facility] Epithelial Cuvrm6776-97-88 17:28:00 * Test Item Value Reference Range Interpretation Comments Urine Epithelial Cells (test code = 81781-8) MODERATE NONE [facility] [id number] 17:28:00* Test Item Value Reference Range Interpretation Comments Urine WBC (test code = 5821-4) NONE 0-5 [facility] [id number] 17:28:00* Test Item Value Reference Range Interpretation Comments Urine RBC (test code = 10285-8) NONE 0-5 [facility] Ybzbijnu2443-87-97 17:28:00* Test Item Value Reference Range Interpretation Comments Urine Bacteria (test code = 28641-0) MANY NONE H [facility] Epithelial Yizqc2661-93-12 17:28:00 * Test Item Value Reference Range Interpretation Comments Urine Epithelial Cells (test code = 85861-0) MODERATE NONE [facility] CampusU[facility] EGQ5050-04-64 17:28:00* Test Item Value Reference Range Interpretation Comments Urine WBC (test code = 5821-4) NONE 0-5 [facility] [id number] 17:28:00* Test Item Value Reference Range Interpretation Comments Urine RBC (test code = 26755-1) NONE 0-5 [facility] Kpifwycg4018-82-06 17:28:00* Test Item Value Reference Range Interpretation Comments Urine Bacteria (test code = 28336-1) MANY NONE H [facility] Epithelial Qfewd4881-46-40 17:28:00 * Test Item Value Reference Range Interpretation Comments Urine Epithelial Cells (test code = 29805-8) MODERATE NONE [facility] Ojiyd2664-59-93 17:19:00* Test Item Value Reference Range Interpretation Comments Urine Color (test code = 5778-6) YELLOW YELLOW [facility] Yubpzxw9785-69-83 17:19:00* Test Item Value Reference Range Interpretation Comments Urine Clarity (test code = 51646-1) SL CLOUDY CLEAR [facility] CampusU[facility] Specific Aqevcdk1138-27-27 17:19:00 * Test Item Value Reference Range Interpretation Comments Urine Specific Ewell (test code = 5811-5) 1.010 1.010-1.02 5 [facility] [id number] 17:19:00* Test Item Value Reference Range Interpretation Comments Urine pH (test code = 20926-2) 5 5-7 [facility] Leukocyte Ezqopivy8875-37-36 17:19:00* Test Item Value Reference Range Interpretation Comments Urine Leukocyte Esterase (test code = 5799-2) NEGATIVE NEGATIVE [facility] Jhhxbva4959-98-01 17:19:00* Test Item Value Reference Range Interpretation Comments Urine Nitrite (test code = 11771-7) NEGATIVE NEGATIVE [facility] Spgvolc6836-42-17 17:19:00* Test Item Value Reference Range Interpretation Comments Urine Protein (test code = 5804-0) 1+ NEGATIVE H [facility] Glucose (UA)2019-01-22 17:19:00* Test Item Value Reference Range Interpretation Comments Urine Glucose (UA) (test code = 2349-9) 3+ NEGATIVE H [facility] Lluzllb9128-65-27 17:19:00* Test Item Value Reference Range Interpretation Comments Urine Ketones (test code = 17637-7) NEGATIVE NEGATIVE [facility] Opiates Zrvtso4167-56-46 17:19:00* Test Item Value Reference Range Interpretation Comments Urine Opiates Screen (test code = 39763-0) NEGATIVE NEGATIVE ALL TESTS PERFORMED MANUALLY ON Game Closure TOX/SEE TESTThe Hospitals of Providence East CampusUrine Barbiturates Dzvysh9445-64-39 17:19:00* Test Item Value Reference Range Interpretation Comments Urine Barbiturates Screen (test code = 875289495) NEGATIVE NEGA TIVE [facility] Phencyclidine Ohfyrr5827-69-90 17:19:00* Test Item Value Reference Range Interpretation Comments Urine Phencyclidine Screen (test code = 59887-1) NEGATIVE NEGAT SANDRA [facility] Campus[facility] Amphetamines Ulvskf6166-79-58 17:19:00* Test Item Value Reference Range Interpretation Comments Urine Amphetamines Screen (test code = 35369-0) NEGATIVE NEGATI VE [facility] Campus[facility] Methamphetamines Faxkhb0756-79-33 17:19:00* Test Item Value Reference Range Interpretation Comments Urine Methamphetamines Screen (test code = Urine Metha mphetamines Screen) NEGATIVE NEGATIVE [facility] Benzodiazepines Mulzmf0346-89-85 17:19:00* Test Item Value Reference Range Interpretation Comments Urine Benzodiazepines Screen (test code = 88678-6) NEGATIVE NEG ATIVE [facility] Cocaine Zsqclu0617-08-26 17:19:00* Test Item Value Reference Range Interpretation Comments Urine Cocaine Screen (test code = 3398-5) NEGATIVE NEGATIVE [facility] Cannabinoids Orvewf3629-48-04 17:19:00* Test Item Value Reference Range Interpretation Comments Urine Cannabinoids Screen (test code = 95299-0) NEGATIVE NEGATI VE THESE RESULTS ARE FOR MEDICAL TREATMENT ONLYTHIS REPORT CONTAINS UNCONFIR MED SCREENING RESULTS*POSITIVE RESULTS WILL BE CONFIRMED BY REFERENCE LAB UPON R EQUEST CUT-OFFDRUG CLASS CONCENTRATION ng/mLAmphetamines 1000Methamphetamines 1000Cocaine 300Opiate 300Phencyc lidine 25Cannabinoid 50Barbiturates 300Benzodiazepine 300Methadone 300[facility] CampusUrine Methadone Lvwzkl3216-32-68 17:19:00* Test Item Value Reference Range Interpretation Comments Urine Methadone Screen (test code = 61979-1) NEGATIVE NEGATIVE THESE RESULTS ARE FOR MEDICAL TREATMENT ONLYTHIS REPORT CONTAINS UNCONFIR MED SCREENING RESULTS*POSITIVE RESULTS WILL BE CONFIRMED BY REFERENCE LAB UPON R EQUEST CUT-OFFDRUG CLASS CONCENTRATION ng/mLAmphetamines 1000Methamphetamines 1000Cocaine Metabolite 300Opiate 300Phencyc lidine 25Cannabinoid 50Barbiturates 300Benzodiazepine 300Methadone 300[facility] Dzgsnkvolvmq2288-47-59 17:19:00* Test Item Value Reference Range Interpretation Comments Urine Urobilinogen (test code = 61893-7) 0.2 0.2-1 [facility] Kjyoippsm2304-56-85 17:19:00* Test Item Value Reference Range Interpretation Comments Urine Bilirubin (test code = 1978-6) NEGATIVE NEGATIVE [facility] Piioy2235-63-35 17:19:00* Test Item Value Reference Range Interpretation Comments Urine Blood (test code = 33850-4) TRACE NEGATIVE H [facility] Baaos3223-83-70 17:19:00* Test Item Value Reference Range Interpretation Comments Urine Color (test code = 5778-6) YELLOW YELLOW [facility] Pvmepat9883-68-09 17:19:00* Test Item Value Reference Range Interpretation Comments Urine Clarity (test code = 16359-0) SL CLOUDY CLEAR [facility] Specific Ljwsjxk3342-14-13 17:19:00 * Test Item Value Reference Range Interpretation Comments Urine Specific [place] (test code = 5811-5) 1.010 1.010-1.02 5 [facility] kW9596-48-34 17:19:00* Test Item Value Reference Range Interpretation Comments Urine pH (test code = 50773-1) 5 5-7 [facility] Leukocyte Xrzfpxzi2906-33-54 17:19:00* Test Item Value Reference Range Interpretation Comments Urine Leukocyte Esterase (test code = 5799-2) NEGATIVE NEGATIVE [facility] Jxilxkw8970-28-81 17:19:00* Test Item Value Reference Range Interpretation Comments Urine Nitrite (test code = 81940-3) NEGATIVE NEGATIVE [facility] Eoioqrm8575-30-69 17:19:00* Test Item Value Reference Range Interpretation Comments Urine Protein (test code = 5804-0) 1+ NEGATIVE H [facility] Glucose (UA)2019-01-22 17:19:00* Test Item Value Reference Range Interpretation Comments Urine Glucose (UA) (test code = 2349-9) 3+ NEGATIVE H [facility] Hhhmedp4894-09-57 17:19:00* Test Item Value Reference Range Interpretation Comments Urine Ketones (test code = 74506-1) NEGATIVE NEGATIVE [facility] Opiates Lkbarj1752-60-87 17:19:00* Test Item Value Reference Range Interpretation Comments Urine Opiates Screen (test code = 22231-8) NEGATIVE NEGATIVE ALL TESTS PERFORMED MANUALLY ON Game Closure TOX/SEE TESTThe Hospitals of Providence East CampusUrine Barbiturates Gtginc2959-48-08 17:19:00* Test Item Value Reference Range Interpretation Comments Urine Barbiturates Screen (test code = 479047703) NEGATIVE NEGA TIVE [facility] Phencyclidine Gypjxi9460-58-27 17:19:00* Test Item Value Reference Range Interpretation Comments Urine Phencyclidine Screen (test code = 80155-5) NEGATIVE NEGAT SANDRA [facility] Amphetamines Iubule0940-89-93 17:19:00* Test Item Value Reference Range Interpretation Comments Urine Amphetamines Screen (test code = 70583-9) NEGATIVE NEGATI VE [facility] Methamphetamines Cgvkgj4163-45-77 17:19:00* Test Item Value Reference Range Interpretation Comments Urine Methamphetamines Screen (test code = Urine Metha mphetamines Screen) NEGATIVE NEGATIVE [facility] Benzodiazepines Inqokb9146-87-74 17:19:00* Test Item Value Reference Range Interpretation Comments Urine Benzodiazepines Screen (test code = 49747-1) NEGATIVE NEG ATIVE [facility] Cocaine Fsnxgw3301-10-07 17:19:00* Test Item Value Reference Range Interpretation Comments Urine Cocaine Screen (test code = 3398-5) NEGATIVE NEGATIVE [facility] Cannabinoids Ephsnz0011-64-13 17:19:00* Test Item Value Reference Range Interpretation Comments Urine Cannabinoids Screen (test code = 03899-9) NEGATIVE NEGATI VE THESE RESULTS ARE FOR MEDICAL TREATMENT ONLYTHIS REPORT CONTAINS UNCONFIR MED SCREENING RESULTS*POSITIVE RESULTS WILL BE CONFIRMED BY REFERENCE LAB UPON R EQUEST CUT-OFFDRUG CLASS CONCENTRATION ng/mLAmphetamines 1000Methamphetamines 1000Cocaine 300Opiate 300Phencyc lidine 25Cannabinoid 50Barbiturates 300Benzodiazepine 300Methadone 300[facility] CampusU[facility] Methadone Cpngkm9446-76-40 17:19:00* Test Item Value Reference Range Interpretation Comments Urine Methadone Screen (test code = 97975-2) NEGATIVE NEGATIVE THESE RESULTS ARE FOR MEDICAL TREATMENT ONLYTHIS REPORT CONTAINS UNCONFIR MED SCREENING RESULTS*POSITIVE RESULTS WILL BE CONFIRMED BY REFERENCE LAB UPON R EQUEST CUT-OFFDRUG CLASS CONCENTRATION ng/mLAmphetamines 1000Methamphetamines 1000Cocaine Metabolite 300Opiate 300Phencyc lidine 25Cannabinoid 50Barbiturates 300Benzodiazepine 300Methadone 300[facility] CampusU[facility] Hctpmcdhkkpx9739-39-63 17:19:00* Test Item Value Reference Range Interpretation Comments Urine Urobilinogen (test code = 11684-2) 0.2 0.2-1 [facility] Iznkvlzqv1042-31-26 17:19:00* Test Item Value Reference Range Interpretation Comments Urine Bilirubin (test code = 1978-6) NEGATIVE NEGATIVE [facility] Jcxbu1292-41-47 17:19:00* Test Item Value Reference Range Interpretation Comments Urine Blood (test code = 59480-2) TRACE NEGATIVE H [facility] Fdmmx3325-78-08 17:19:00* Test Item Value Reference Range Interpretation Comments Urine Color (test code = 5778-6) YELLOW YELLOW [facility] Faserwb1125-68-10 17:19:00* Test Item Value Reference Range Interpretation Comments Urine Clarity (test code = 47120-9) SL CLOUDY CLEAR [facility] Specific Zgbflra4210-97-85 17:19:00 * Test Item Value Reference Range Interpretation Comments Urine Specific [place] (test code = 5811-5) 1.010 1.010-1.02 5 [facility] iT5491-14-20 17:19:00* Test Item Value Reference Range Interpretation Comments Urine pH (test code = 18447-0) 5 5-7 [facility] Leukocyte Uaqjpybm3801-47-14 17:19:00* Test Item Value Reference Range Interpretation Comments Urine Leukocyte Esterase (test code = 5799-2) NEGATIVE NEGATIVE [facility] Eocpstm8103-71-37 17:19:00* Test Item Value Reference Range Interpretation Comments Urine Nitrite (test code = 06744-0) NEGATIVE NEGATIVE [facility] Whctgdv9131-99-85 17:19:00* Test Item Value Reference Range Interpretation Comments Urine Protein (test code = 5804-0) 1+ NEGATIVE H [facility] Glucose (UA)2019-01-22 17:19:00* Test Item Value Reference Range Interpretation Comments Urine Glucose (UA) (test code = 2349-9) 3+ NEGATIVE H [facility] Peqsads0807-18-22 17:19:00* Test Item Value Reference Range Interpretation Comments Urine Ketones (test code = 33559-2) NEGATIVE NEGATIVE [facility] Opiates Pcysek9298-01-82 17:19:00* Test Item Value Reference Range Interpretation Comments Urine Opiates Screen (test code = 05469-3) NEGATIVE NEGATIVE ALL TESTS PERFORMED MANUALLY ON Game Closure TOX/SEE TESTThe Hospitals of [facility] Barbiturates Anyudi2367-54-42 17:19:00* Test Item Value Reference Range Interpretation Comments Urine Barbiturates Screen (test code = 699350470) NEGATIVE NEGA TIVE [facility] Phencyclidine Euwacs9689-37-19 17:19:00* Test Item Value Reference Range Interpretation Comments Urine Phencyclidine Screen (test code = 35734-5) NEGATIVE NEGAT SANDRA [facility] Amphetamines Xyytny7983-26-20 17:19:00* Test Item Value Reference Range Interpretation Comments Urine Amphetamines Screen (test code = 46356-9) NEGATIVE NEGATI VE [facility] Methamphetamines Rmorte2257-54-52 17:19:00* Test Item Value Reference Range Interpretation Comments Urine Methamphetamines Screen (test code = Urine Metha mphetamines Screen) NEGATIVE NEGATIVE [facility] Benzodiazepines Behnvj5606-27-10 17:19:00* Test Item Value Reference Range Interpretation Comments Urine Benzodiazepines Screen (test code = 99858-4) NEGATIVE NEG ATIVE [facility] Cocaine Vayzsv4564-69-26 17:19:00* Test Item Value Reference Range Interpretation Comments Urine Cocaine Screen (test code = 3398-5) NEGATIVE NEGATIVE [facility] Cannabinoids Hxwfvd6934-68-81 17:19:00* Test Item Value Reference Range Interpretation Comments Urine Cannabinoids Screen (test code = 31073-9) NEGATIVE NEGATI VE THESE RESULTS ARE FOR MEDICAL TREATMENT ONLYTHIS REPORT CONTAINS UNCONFIR MED SCREENING RESULTS*POSITIVE RESULTS WILL BE CONFIRMED BY REFERENCE LAB UPON R EQUEST CUT-OFFDRUG CLASS CONCENTRATION ng/mLAmphetamines 1000Methamphetamines 1000Cocaine 300Opiate 300Phencyc lidine 25Cannabinoid 50Barbiturates 300Benzodiazepine 300Methadone 300[facility]one Mbdblr1006-57-37 17:19:00* Test Item Value Reference Range Interpretation Comments Urine Methadone Screen (test code = 66473-5) NEGATIVE NEGATIVE THESE RESULTS ARE FOR MEDICAL TREATMENT ONLYTHIS REPORT CONTAINS UNCONFIR MED SCREENING RESULTS*POSITIVE RESULTS WILL BE CONFIRMED BY REFERENCE LAB UPON R EQUEST CUT-OFFDRUG CLASS CONCENTRATION ng/mLAmphetamines 1000Methamphetamines 1000Cocaine Metabolite 300Opiate 300Phencyc lidine 25Cannabinoid 50Barbiturates 300Benzodiazepine 300Methadone 300[facility] Center[facility] Xiovdjldbakw9467-60-04 17:19:00* Test Item Value Reference Range Interpretation Comments Urine Urobilinogen (test code = 03940-9) 0.2 0.2-1 [facility] Aypcovwml5946-26-21 17:19:00* Test Item Value Reference Range Interpretation Comments Urine Bilirubin (test code = 1978-6) NEGATIVE NEGATIVE [facility] Eteky5242-93-29 17:19:00* Test Item Value Reference Range Interpretation Comments Urine Blood (test code = 93875-7) TRACE NEGATIVE H [facility] CenterCHEST 2 PKJAA1218-19-66 17:18:00 [facility] [address] [address] Patient Name: IRENA VILLGEAS MR #: [id number] : 1970 Age/Sex: 49/F Req #: [id number] Adm Physician: Ordered by: ALLIE JULIEN MD Report #: [id number] Location: ER Room/Bed: Procedure: [id number] DX/ CHEST 2 VIEWS Exam Date: 01/22/19 Exam Time: 1630 REPORT STATUS: Signed EXAMINATION: CHEST 2 VIEWS INDICATION: Chest pain. COMPARISON: None FINDINGS: TUBES and LINES: None. LUNGS: Bibasilar subsegmental atelec tasis. There is no evidence of pneumonia or pulmonary edema. PLEURA: N o pleural effusion or pneumothorax. HEART AND MEDIASTINUM: The cardiomedia stinal silhouette is unremarkable. BONES AND SOFT TISSUES: No acute osseo us lesion. Soft tissues are unremarkable. UPPER ABDOMEN: No free air und er the diaphragm. IMPRESSION: No acute thoracic abnormality. Si gned by: Dr. Justin Deleon M.D. on 01/22/2019 5:20 PM Dictated By: ZEENAT DELEON MD, MD 19 Transcribed By: JESSICA on 01/22/191719 COPY TO: ALLIE JULIEN MD B-Type Natriuretic Uibpfwq1142-29-76 17:08:00* Test Item Value Reference Range Interpretation Comments B-Type Natriuretic Peptide (test code = 36969-9) < 10.0 0-100 [facility] CampusB[facility] Natriuretic Anlzljh6448-42-10 17:08:00* Test Item Value Reference Range Interpretation Comments B-Type Natriuretic Peptide (test code = 98666-2) < 10.0 0-100 [facility] CampusProthrombin Foqg0792-54-44 17:00:00* Test Item Value Reference Range Interpretation Comments Prothrombin Time (test code = 5902-2) 12.2 11.9-14.5 [facility] CampusProthromb Time International Ratio 2019-01-22 17:00:00* Test Item Value Reference Range Interpretation Comments Prothromb Time International Ratio (test code = 6301-6) 0.86 Oral Anticoagulant Therapy INR Values:1. Low Intensity Therapy 1.5 - 2.02 . Moderate Intensity Therapy 2.0 - 3.03. High Intensity Therapy(1) 2.5 - 3. 54. High Intensity Therapy(2) 3.0 - 4.05. Panic Value INR > 5.0 [facility] CampusActivated Partial Thromboplast Time 2019-01-22 17:00:00* Test Item Value Reference Range Interpretation Comments Activated Partial Thromboplast Time (test code = 95484-3) 27.1 23.8-35.5 [facility] CampusProthrombin Spyh8326-35-50 17:00:00* Test Item Value Reference Range Interpretation Comments Prothrombin Time (test code = 5902-2) 12.2 11.9-14.5 [facility] CampusProthromb Time International Ratio 2019-01-22 17:00:00* Test Item Value Reference Range Interpretation Comments Prothromb Time International Ratio (test code = 6301-6) 0.86 Oral Anticoagulant Therapy INR Values:1. Low Intensity Therapy 1.5 - 2.02 . Moderate Intensity Therapy 2.0 - 3.03. High Intensity Therapy(1) 2.5 - 3. 54. High Intensity Therapy(2) 3.0 - 4.05. Panic Value INR > 5.[address] [facility] [facility] Partial Thromboplast Time 2019-01-22 17:00:00* Test Item Value Reference Range Interpretation Comments Activated Partial Thromboplast Time (test code = 35160-4) 27.1 23.8-35.5 [facility] CampusProthrombin Rdst8347-36-95 17:00:00* Test Item Value Reference Range Interpretation Comments Prothrombin Time (test code = 5902-2) 12.2 11.9-14.5 [facility] CampusProthromb Time International Ratio 2019-01-22 17:00:00* Test Item Value Reference Range Interpretation Comments Prothromb Time International Ratio (test code = 6301-6) 0.86 Oral Anticoagulant Therapy INR Values:1. Low Intensity Therapy 1.5 - 2.02 . Moderate Intensity Therapy 2.0 - 3.03. High Intensity Therapy(1) 2.5 - 3. 54. High Intensity Therapy(2) 3.0 - 4.05. Panic Value INR > 5.0 [facility] CampusActivated Partial Thromboplast Time 2019-01-22 17:00:00* Test Item Value Reference Range Interpretation Comments Activated Partial Thromboplast Time (test code = 84484-6) 27.1 23.8-35.5 [facility] Cvdae7484-92-88 16:59:00* Test Item Value Reference Range Interpretation Comments Sodium Level (test code = 2951-2) 133 136-145 L [facility] CampusPotassium Nhlzj5864-76-05 16:59:00* Test Item Value Reference Range Interpretation Comments Potassium Level (test code = 2823-3) 3.9 3.5-5.1 [facility] CampusChloride Jljeo1647-42-21 16:59:00* Test Item Value Reference Range Interpretation Comments Chloride Level (test code = 2075-0) 99 98-107 [facility] CampusCarbon Dioxide Gdcyn3683-09-07 16:59:00* Test Item Value Reference Range Interpretation Comments Carbon Dioxide Level (test code = 2028-9) 25 22-29 [facility] CampusAnion Ksi6110-81-64 16:59:00* Test Item Value Reference Range Interpretation Comments Anion Gap (test code = 88149-2) 12.9 8-16 [facility] CampusBlood Urea Ptvexvkn0013-39-78 16:59:00* Test Item Value Reference Range Interpretation Comments Blood Urea Nitrogen (test code = 3094-0) 20 7-26 [facility] CampusCreatinine2019-05-08 16:59:00* Test Item Value Reference Range Interpretation Comments Creatinine (test code = 2160-0) 1.24 0.57-1.11 H [facility] CampusBUN/Creatinine Bvnmt9129-88-93 16:59:00* Test Item Value Reference Range Interpretation Comments BUN/Creatinine Ratio (test code = 3097-3) 16 6-25 [facility] CampusEstimat Glomerular Filtration Rate 2019-01-22 16:59:00* Test Item Value Reference Range Interpretation Comments Estimat Glomerular Filtration Rate (test code = 046003530) 46 >60 L Ranges were taken from the National Kidney Disease Education Program and the [facility] Kid[facility] Foundation literature.Reference ranges:60 or greater: Kgsrrh25-72 ( for 3 consecutive months): Chronic kidney disease 15 or less: Kidney failureThe Hospitals of [facility] CampusGlucose Qfjjb9421-08-33 16:59:00* Test Item Value Reference Range Interpretation Comments Glucose Level (test code = NEK2656) 484 74-118 Results repeated and called to GANESH ACOSTA at 1658 on 01/22/19 by JOVANA VÁSQUEZ. Read back and verified.[facility] CampusCalcium Level 2019-01-22 16:59:00* Test Item Value Reference Range Interpretation Comments Calcium Level (test code = 21253-0) 9.7 8.4-10.2 [facility] CampusTotal Nnfikoply5394-54-91 16:59:00* Test Item Value Reference Range Interpretation Comments Total Bilirubin (test code = 1975-2) 0.5 0.2-1.2 [facility] CampusAspartate Amino Transf (AST/SGOT) 2019-01-22 16:59:00* Test Item Value Reference Range Interpretation Comments Aspartate Amino Transf (AST/SGOT) (test code = Aspartate Amino Transf (AST/SGOT)) 41 5-34 H [facility] CampusAlanine Aminotransferase (ALT/SGPT) 2019-01-22 16:59:00* Test Item Value Reference Range Interpretation Comments Alanine Aminotransferase (ALT/SGPT) (test code = 1742-6) 48 0-55 [facility] CampusTotal Pobpfwy8313-70-06 16:59:00* Test Item Value Reference Range Interpretation Comments Total Protein (test code = 2885-2) 7.0 6.5-8.1 [facility] CampusAlbumin2019-05-08 16:59:00* Test Item Value Reference Range Interpretation Comments Albumin (test code = 1751-7) 3.5 3.5-5.0 [facility] CampusGlobulin2019-05-08 16:59:00* Test Item Value Reference Range Interpretation Comments Globulin (test code = 95087-4) 3.5 2.3-3.5 [facility] CampusAlbumin/Globulin Pznpo2245-98-32 16:59:00 * Test Item Value Reference Range Interpretation Comments Albumin/Globulin Ratio (test code = 1759-0) 1.0 0.8-2.0 [facility] CampusAlkaline Ygfyoljjalr8148-53-41 16:59:00* Test Item Value Reference Range Interpretation Comments Alkaline Phosphatase (test code = 6768-6) 119 40-150 [facility] CampusCreatine Dvmzge4104-09-30 16:59:00* Test Item Value Reference Range Interpretation Comments Creatine Kinase (test code = 2157-6) 114 29-168 [facility] Centerodium Vgjbg8300-37-61 16:59:00* Test Item Value Reference Range Interpretation Comments Sodium Level (test code = 2951-2) 133 136-145 L [facility] CampusPotassium Mgiln0868-97-98 16:59:00* Test Item Value Reference Range Interpretation Comments Potassium Level (test code = 2823-3) 3.9 3.5-5.1 [facility] CampusChloride Olkmr1720-35-68 16:59:00* Test Item Value Reference Range Interpretation Comments Chloride Level (test code = 2075-0) 99 98-107 [facility] CampusCarbon Dioxide Xdgvh2755-15-78 16:59:00* Test Item Value Reference Range Interpretation Comments Carbon Dioxide Level (test code = 2028-9) 25 22-29 [facility] CampusAnion Ngv9540-56-73 16:59:00* Test Item Value Reference Range Interpretation Comments Anion Gap (test code = 25756-3) 12.9 8-16 [facility] CampusBlood Urea Rhfbhmfe2999-62-74 16:59:00* Test Item Value Reference Range Interpretation Comments Blood Urea Nitrogen (test code = 3094-0) 20 7-26 [facility] CampusCreatinine2019-05-08 16:59:00* Test Item Value Reference Range Interpretation Comments Creatinine (test code = 2160-0) 1.24 0.57-1.11 H [facility] CampusBUN/Creatinine Ydofk0615-13-10 16:59:00* Test Item Value Reference Range Interpretation Comments BUN/Creatinine Ratio (test code = 3097-3) 16 6-25 [facility] CampusEstimat Glomerular Filtration Rate 2019-01-22 16:59:00* Test Item Value Reference Range Interpretation Comments Estimat Glomerular Filtration Rate (test code = 764602029) 46 >60 L Ranges were taken from the National Kidney Disease Education Program and the [facility] Kidney Foundation literature.Reference ranges:60 or greater: Phfukz35-12 ( for 3 consecutive months): Chronic kidney disease 15 or less: Kidney failureThe Hospitals of [facility] East CampusGlucose Tmqlr8095-37-96 16:59:00* Test Item Value Reference Range Interpretation Comments Glucose Level (test code = YKW6073) 484 74-118 Results repeated and called to GANESH ACOSTA at 1658 on 01/22/19 by JOVANA VÁSQUEZ. Read back and verified.[facility] CampusCalcium Level 2019-01-22 16:59:00* Test Item Value Reference Range Interpretation Comments Calcium Level (test code = 97383-8) 9.7 8.4-10.2 [facility] CampusTotal Ryvkydsyz6327-37-09 16:59:00* Test Item Value Reference Range Interpretation Comments Total Bilirubin (test code = 1975-2) 0.5 0.2-1.2 [facility] CampusAspartate Amino Transf (AST/SGOT) 2019-01-22 16:59:00* Test Item Value Reference Range Interpretation Comments Aspartate Amino Transf (AST/SGOT) (test code = Aspartate Amino Transf (AST/SGOT)) 41 5-34 H [facility] CampusAlanine Aminotransferase (ALT/SGPT) 2019-01-22 16:59:00* Test Item Value Reference Range Interpretation Comments Alanine Aminotransferase (ALT/SGPT) (test code = 1742-6) 48 0-55 [facility] CampusTotal Nymwrmn0038-50-68 16:59:00* Test Item Value Reference Range Interpretation Comments Total Protein (test code = 2885-2) 7.0 6.5-8.1 [facility] CampusAlbumin2019-05-08 16:59:00* Test Item Value Reference Range Interpretation Comments Albumin (test code = 1751-7) 3.5 3.5-5.0 [facility] CampusGlobulin2019-05-08 16:59:00* Test Item Value Reference Range Interpretation Comments Globulin (test code = 20935-5) 3.5 2.3-3.5 [facility] CampusAlbumin/Globulin Pgygj8241-45-97 16:59:00 * Test Item Value Reference Range Interpretation Comments Albumin/Globulin Ratio (test code = 1759-0) 1.0 0.8-2.0 [facility] CampusAlkaline Kswlgzqawxi4899-49-66 16:59:00* Test Item Value Reference Range Interpretation Comments Alkaline Phosphatase (test code = 6768-6) 119 40-150 [facility] CampusCreatine Rrnkzq7005-11-79 16:59:00* Test Item Value Reference Range Interpretation Comments Creatine Kinase (test code = 2157-6) 114 29-168 [facility] CampusWhite Blood Aditv7713-31-89 16:44:00* Test Item Value Reference Range Interpretation Comments White Blood Count (test code = 6690-2) 7.49 4.8-10.8 [facility] CampusRed Blood Jlfzy9165-49-64 16:44:00* Test Item Value Reference Range Interpretation Comments Red Blood Count (test code = 789-8) 5.12 3.6-5.1 H [facility] CampusHemoglobin2019-05-08 16:44:00* Test Item Value Reference Range Interpretation Comments Hemoglobin (test code = 65213-2) 13.9 12.0-16.0 [facility] CampusHematocrit2019-05-08 16:44:00* Test Item Value Reference Range Interpretation Comments Hematocrit (test code = 4544-3) 43.0 34.2-44.1 [facility] CampusMean Corpuscular Ioldpf6642-60-85 16:44:00* Test Item Value Reference Range Interpretation Comments Mean Corpuscular Volume (test code = 787-2) 84.0 81-99 [facility] CampusMean Corpuscular Sdjylxotey1659-56-13 16:44:00* Test Item Value Reference Range Interpretation Comments Mean Corpuscular Hemoglobin (test code = 785-6) 27.1 28-32 L [facility] CampusMean Corpuscular Hemoglobin Concent 2019-01-22 16:44:00* Test Item Value Reference Range Interpretation Comments Mean Corpuscular Hemoglobin Concent (test code = 786-4) 32.3 31-35 [facility] CampusRed Cell Distribution Ewhup0072-13-66 16:44:00* Test Item Value Reference Range Interpretation Comments Red Cell Distribution Width (test code = 09219-0) 13.2 11.7 -14.4 [facility] CampusPlatelet Lmjnt1677-07-45 16:44:00* Test Item Value Reference Range Interpretation Comments Platelet Count (test code = 777-3) 210 140-360 [facility] CampusNeutrophils (%) (Auto)2019-01-22 16:44:00 * Test Item Value Reference Range Interpretation Comments Neutrophils (%) (Auto) (test code = 00322-5) 65.5 38.7-80.0 [facility] CampusLymphocytes (%) (Auto)2019-01-22 16:44:00 * Test Item Value Reference Range Interpretation Comments Lymphocytes (%) (Auto) (test code = 736-9) 21.2 18.0-39.1 [facility] CampusMonocytes (%) (Auto)2019-01-22 16:44:00* Test Item Value Reference Range Interpretation Comments Monocytes (%) (Auto) (test code = 5905-5) 10.4 4.4-11.3 [facility] CampusEosinophils (%) (Auto)2019-01-22 16:44:00 * Test Item Value Reference Range Interpretation Comments Eosinophils (%) (Auto) (test code = 713-8) 1.5 0.0-6.0 [facility] CampusBasophils (%) (Auto)2019-01-22 16:44:00* Test Item Value Reference Range Interpretation Comments Basophils (%) (Auto) (test code = 706-2) 1.1 0.0-1.0 H [facility] CampusIM GRANULOCYTES %2019-01-22 16:44:00* Test Item Value Reference Range Interpretation Comments IM GRANULOCYTES % (test code = IM GRANULOCYTES %) 0.3 0.0- 1.0 [facility] CampusNeutrophils # (Auto)2019-01-22 16:44:00* Test Item Value Reference Range Interpretation Comments Neutrophils # (Auto) (test code = 751-8) 4.9 2.1-6.9 [facility] CampusLymphocytes # (Auto)2019-01-22 16:44:00* Test Item Value Reference Range Interpretation Comments Lymphocytes # (Auto) (test code = 26303-1) 1.6 1.0-3.2 [facility] CampusMonocytes # (Auto)2019-01-22 16:44:00* Test Item Value Reference Range Interpretation Comments Monocytes # (Auto) (test code = 742-7) 0.8 0.2-0.8 [facility] CampusEosinophils # (Auto)2019-01-22 16:44:00* Test Item Value Reference Range Interpretation Comments Eosinophils # (Auto) (test code = 711-2) 0.1 0.0-0.4 [facility] CampusBasophils # (Auto)2019-01-22 16:44:00* Test Item Value Reference Range Interpretation Comments Basophils # (Auto) (test code = 704-7) 0.1 0.0-0.1 [facility] CampusAbsolute Immature Granulocyte (auto 2019-01-22 16:44:00* Test Item Value Reference Range Interpretation Comments Absolute Immature Granulocyte (auto (marisol t code = Absolute Immature Granulocyte (auto) 0.02 0-0.1 [facility] CampusWhite Blood Ahxts2334-77-96 16:44:00* Test Item Value Reference Range Interpretation Comments White Blood Count (test code = 6690-2) 7.49 4.8-10.8 [facility] CampusRed Blood Ndufx3914-65-01 16:44:00* Test Item Value Reference Range Interpretation Comments Red Blood Count (test code = 789-8) 5.12 3.6-5.1 H [facility] CampusHemoglobin2019-05-08 16:44:00* Test Item Value Reference Range Interpretation Comments Hemoglobin (test code = 25746-0) 13.9 12.0-16.0 [facility] CampusHematocrit2019-05-08 16:44:00* Test Item Value Reference Range Interpretation Comments Hematocrit (test code = 4544-3) 43.0 34.2-44.1 [facility] CampusMean Corpuscular Odgvmb9449-87-59 16:44:00* Test Item Value Reference Range Interpretation Comments Mean Corpuscular Volume (test code = 787-2) 84.0 81-99 [facility] CampusMean Corpuscular Niatmphshv1184-92-88 16:44:00* Test Item Value Reference Range Interpretation Comments Mean Corpuscular Hemoglobin (test code = 785-6) 27.1 28-32 L [facility] CampusMean Corpuscular Hemoglobin Concent 2019-01-22 16:44:00* Test Item Value Reference Range Interpretation Comments Mean Corpuscular Hemoglobin Concent (test code = 786-4) 32.3 31-35 [facility] CampusRed Cell Distribution Dtlnf6696-04-54 16:44:00* Test Item Value Reference Range Interpretation Comments Red Cell Distribution Width (test code = 11598-9) 13.2 11.7 -14.4 [facility] CampusPlatelet Ywjiv3292-41-99 16:44:00* Test Item Value Reference Range Interpretation Comments Platelet Count (test code = 777-3) 210 140-360 [facility] CampusNeutrophils (%) (Auto)2019-01-22 16:44:00 * Test Item Value Reference Range Interpretation Comments Neutrophils (%) (Auto) (test code = 75371-1) 65.5 38.7-80.0 [facility] CampusLymphocytes (%) (Auto)2019-01-22 16:44:00 * Test Item Value Reference Range Interpretation Comments Lymphocytes (%) (Auto) (test code = 736-9) 21.2 18.0-39.1 [facility] CampusMonocytes (%) (Auto)2019-01-22 16:44:00* Test Item Value Reference Range Interpretation Comments Monocytes (%) (Auto) (test code = 5905-5) 10.4 4.4-11.3 [facility] CampusEosinophils (%) (Auto)2019-01-22 16:44:00 * Test Item Value Reference Range Interpretation Comments Eosinophils (%) (Auto) (test code = 713-8) 1.5 0.0-6.0 [facility] CampusBasophils (%) (Auto)2019-01-22 16:44:00* Test Item Value Reference Range Interpretation Comments Basophils (%) (Auto) (test code = 706-2) 1.1 0.0-1.0 H [facility] CampusIM GRANULOCYTES %2019-01-22 16:44:00* Test Item Value Reference Range Interpretation Comments IM GRANULOCYTES % (test code = IM GRANULOCYTES %) 0.3 0.0- 1.0 [facility] CampusNeutrophils # (Auto)2019-01-22 16:44:00* Test Item Value Reference Range Interpretation Comments Neutrophils # (Auto) (test code = 751-8) 4.9 2.1-6.9 [facility] CampusLymphocytes # (Auto)2019-01-22 16:44:00* Test Item Value Reference Range Interpretation Comments Lymphocytes # (Auto) (test code = 17598-4) 1.6 1.0-3.2 [facility] CampusMonocytes # (Auto)2019-01-22 16:44:00* Test Item Value Reference Range Interpretation Comments Monocytes # (Auto) (test code = 742-7) 0.8 0.2-0.8 [facility] CampusEosinophils # (Auto)2019-01-22 16:44:00* Test Item Value Reference Range Interpretation Comments Eosinophils # (Auto) (test code = 711-2) 0.1 0.0-0.4 [facility] CampusBasophils # (Auto)2019-01-22 16:44:00* Test Item Value Reference Range Interpretation Comments Basophils # (Auto) (test code = 704-7) 0.1 0.0-0.1 [facility] CampusAbsolute Immature Granulocyte (auto 2019-01-22 16:44:00* Test Item Value Reference Range Interpretation Comments Absolute Immature Granulocyte (auto (marisol t code = Absolute Immature Granulocyte (auto) 0.02 0-0.1 [facility] CampusCT ABDOMEN/PELVIS JV0231-38-97 00:06:00 [address] [place] [address] Patient Name: RIENA VILLEGAS MR #: [id number] : 1970 Age/Sex: 48/F Req #: [id number] Adm Physician: Ordered by: SHERIN SALDAÑA MD Report #: [id number] [facility]: Procedure: [id number] CT/CT ABDOMEN/PELVIS WO Exam Date: Exam Time: REPORT STATUS: Signed EXAM: CT Abdomen and Pelvis WITHOUT contrast INDICATION: Abdominal pain, left lower quadrant. COMPARISON: None. TECHNIQUE: Abdomen and pelvis were s canned utilizing a multidetector helical scanner from the lung base to the pub ic symphysis without administration of IV contrast. Absence of intravenous con trast decreases sensitivity for detection of focal lesions and vascular pathol ogy. Coronal and sagittal reformations were obtained. Routine protocol was per [facility]. IV CONTRAST: None. ORAL CONTRAST: [place] [facility] RADIATION DOSE: Total DLP: 568.72 mGy*cm Estima jesus effective dose: (DLP x 0.015 x size factor) mSv COMPLICATIONS: None FINDINGS: LINES and TUBES: None. LOWER THORAX: Unremarkabl e HEPATOBILIARY: No focal hepatic lesions. No biliary ductal dilation. GALLBLADDER: No radio-opaque stones or sludge. No wall thickening. SPLEEN: No splenomegaly. PANCREAS: No focal masses or ductal dilatation. ADRENALS: No adrenal nodules KIDNEYS/URETERS: No hydronephrosis. No cystic or solid mass lesions. No stones. GI TRACT: No abnormal diste ntion, wall thickening, or evidence of bowel obstruction. Appendix is no rmal. PELVIC ORGANS/BLADDER: The uterus is absent. Bilateral ovaries are unremarkable. LYMPH NODES: No lymphadenopathy. VESSELS: Unremarkable. PERITONEUM / RETROPERITONEUM: No free air or fluid. BONES: There are m oderate degenerative changes in the lower lumbar spine. SOFT TISSUES: Unrem arkable. IMPRESSION: 1. No evidence of acute intra-abdomina l or pelvic abnormality. Signed by: Dr. Nabeel Corey M.D. on 02/23/2018 12:08 AM Dictated By: NABEEL DUDLEY MD Transcribed By: JESSICA on 02/23/187 COPY TO: SHERIN SALDAÑA MD Urine [id number] 23:00:00* Test Item Value Reference Range Interpretation Comments Urine WBC (test code = 5821-4) 0-5 0-5 [facility] [id number] 23:00:00* Test Item Value Reference Range Interpretation Comments Urine RBC (test code = 45493-3) 0-5 0-5 [facility] [id number] 23:00:00* Test Item Value Reference Range Interpretation Comments Urine Bacteria (test code = 86904-0) FEW NONE [facility] Epithelial [id number] 23:00:00 * Test Item Value Reference Range Interpretation Comments Urine Epithelial Cells (test code = 80015-1) RARE NONE FEW CLUE [facility]SMat[facility] Centerodium [id number] 22:49:00* Test Item Value Reference Range Interpretation Comments Sodium Level (test code = 2951-2) 133 136-145 L [facility]Potassium Lxewi2400-04-48 22:49:00* Test Item Value Reference Range Interpretation Comments Potassium Level (test code = 2823-3) 3.8 3.5-5.1 [facility] CampusChloride [id number] 22:49:00* Test Item Value Reference Range Interpretation Comments Chloride Level (test code = 2075-0) 102 98-107 [facility] CampusCarbon Dioxide Ttpcg5342-44-86 22:49:00* Test Item Value Reference Range Interpretation Comments Carbon Dioxide Level (test code = 2028-9) 23 22-29 [facility] CampusAnion [id number] 22:49:00* Test Item Value Reference Range Interpretation Comments Anion Gap (test code = 74207-5) 11.8 8-16 [facility]Blood Urea Cyjbflmc2630-08-52 22:49:00* Test Item Value Reference Range Interpretation Comments Blood Urea Nitrogen (test code = 3094-0) 17 7-26 [facility] CampusCreatinine2018-06-08 22:49:00* Test Item Value Reference Range Interpretation Comments Creatinine (test code = 2160-0) 1.18 0.57-1.11 H [facility] CampusBUN/Creatinine Jnayt3346-51-85 22:49:00* Test Item Value Reference Range Interpretation Comments BUN/Creatinine Ratio (test code = 3097-3) 14 6-25 [facility] CampusEstimat Glomerular Filtration Rate 2018-02-22 22:49:00* Test Item Value Reference Range Interpretation Comments Estimat Glomerular Filtration Rate (test code = 81942-8) 49 >60 L Ranges were taken from the National Kidney Disease Education Program and the [facility] Kidney Foundation literature.Reference ranges:60 or greater: Qtkdam55-99 ( for 3 consecutive months): Chronic kidney disease 15 or less: Kidney failureThe Hospitals of Providence East CampusGlucose Yqtiv4567-88-60 22:49:00* Test Item Value Reference Range Interpretation Comments Glucose Level (test code = UHD1659) 283 74-118 H [facility] CampusCalcium Tvkch5478-84-04 22:49:00* Test Item Value Reference Range Interpretation Comments Calcium Level (test code = 35716-8) 9.8 8.4-10.2 [facility] CampusTotal Vujfqbmqy6429-97-31 22:49:00* Test Item Value Reference Range Interpretation Comments Total Bilirubin (test code = 1975-2) 0.6 0.2-1.2 [facility] CampusAspartate Amino Transf (AST/SGOT) 2018-02-22 22:49:00* Test Item Value Reference Range Interpretation Comments Aspartate Amino Transf (AST/SGOT) (test code = Aspartate Amino Transf (AST/SGOT)) 33 5-34 [facility] CampusAlanine Aminotransferase (ALT/SGPT) 2018-02-22 22:49:00* Test Item Value Reference Range Interpretation Comments Alanine Aminotransferase (ALT/SGPT) (test code = 1742-6) 36 0-55 [facility] CampusTotal Gjsbttz4803-42-11 22:49:00* Test Item Value Reference Range Interpretation Comments Total Protein (test code = 2885-2) 7.9 6.5-8.1 [facility] CampusAlbumin2018-06-08 22:49:00* Test Item Value Reference Range Interpretation Comments Albumin (test code = 1751-7) 4.1 3.5-5.0 [facility] CampusGlobulin2018-06-08 22:49:00* Test Item Value Reference Range Interpretation Comments Globulin (test code = 45629-8) 3.8 2.3-3.5 H [facility] CampusAlbumin/Globulin Ntcef4221-91-10 22:49:00 * Test Item Value Reference Range Interpretation Comments Albumin/Globulin Ratio (test code = 1759-0) 1.1 0.8-2.0 [facility] CampusAlkaline Dczaxvznixy6241-20-92 22:49:00* Test Item Value Reference Range Interpretation Comments Alkaline Phosphatase (test code = 6768-6) 111 40-150 [facility] CampusAmylase Rtjjg5987-61-70 22:49:00* Test Item Value Reference Range Interpretation Comments Amylase Level (test code = 1798-8) 70 25-125 [facility] CampusLipase2018-06-08 22:49:00* Test Item Value Reference Range Interpretation Comments Lipase (test code = 3040-3) 81 8-78 H [facility] CampusUrine Yhllg6868-48-15 22:36:00* Test Item Value Reference Range Interpretation Comments Urine Color (test code = 5778-6) YELLOW YELLOW [facility] CampusUrine Tlxjqrs9209-78-28 22:36:00* Test Item Value Reference Range Interpretation Comments Urine Clarity (test code = 77892-9) SL CLOUDY CLEAR [facility] CampusUrine Specific Rtskqay5373-41-21 22:36:00 * Test Item Value Reference Range Interpretation Comments Urine Specific [place] (test code = 5811-5) 1.020 1.010-1.02 5 [facility] CampusUrine [id number] 22:36:00* Test Item Value Reference Range Interpretation Comments Urine pH (test code = 44863-7) 6 5-7 [facility] CampusUrine Leukocyte Yoxkfbru4057-38-78 22:36:00* Test Item Value Reference Range Interpretation Comments Urine Leukocyte Esterase (test code = 5799-2) NEGATIVE NEGATIVE [facility] CampusUrine Qkyfedx4473-35-84 22:36:00* Test Item Value Reference Range Interpretation Comments Urine Nitrite (test code = 77440-2) NEGATIVE NEGATIVE [facility] CampusUrine Dgnadin7107-60-22 22:36:00* Test Item Value Reference Range Interpretation Comments Urine Protein (test code = 5804-0) TRACE NEGATIVE H [facility] CampusUrine Glucose (UA)2018-02-22 22:36:00* Test Item Value Reference Range Interpretation Comments Urine Glucose (UA) (test code = 2349-9) 3+ NEGATIVE H [facility] CampusUrine Pmjobva0015-36-06 22:36:00* Test Item Value Reference Range Interpretation Comments Urine Ketones (test code = 43116-8) NEGATIVE NEGATIVE [facility] CampusUrine Qgccpdwqjemo9433-14-88 22:36:00* Test Item Value Reference Range Interpretation Comments Urine Urobilinogen (test code = 76951-8) 0.2 0.2-1 [facility] CampusUrine Jlndskyyi8976-86-48 22:36:00* Test Item Value Reference Range Interpretation Comments Urine Bilirubin (test code = 1978-6) NEGATIVE NEGATIVE [facility] CampusUrine Atlcg5563-90-06 22:36:00* Test Item Value Reference Range Interpretation Comments Urine Blood (test code = 74298-3) NEGATIVE NEGATIVE [facility] CampusUrine Sqgl8800-32-91 22:36:00* Test Item Value Reference Range Interpretation Comments Urine Test (test code = 2106-3) NEGATIVE NEGATIVE [facility] CampusWhite Blood Tckzm4721-67-01 22:31:00* Test Item Value Reference Range Interpretation Comments White Blood Count (test code = 6690-2) 7.38 4.8-10.8 [facility] CampusRed Blood Vtzdt0500-55-06 22:31:00* Test Item Value Reference Range Interpretation Comments Red Blood Count (test code = 789-8) 5.28 3.6-5.1 H [facility] CampusHemoglobin2018-06-08 22:31:00* Test Item Value Reference Range Interpretation Comments Hemoglobin (test code = 29015-7) 14.3 12.0-16.0 [facility] CampusHematocrit2018-06-08 22:31:00* Test Item Value Reference Range Interpretation Comments Hematocrit (test code = 4544-3) 43.9 34.2-44.1 [facility] CampusMean Corpuscular Sljfgo8904-14-92 22:31:00* Test Item Value Reference Range Interpretation Comments Mean Corpuscular Volume (test code = 787-2) 83.1 81-99 [facility] CampusMean Corpuscular Rywrrzlmuy5536-95-30 22:31:00* Test Item Value Reference Range Interpretation Comments Mean Corpuscular Hemoglobin (test code = 785-6) 27.1 28-32 L [facility] CampusMean Corpuscular Hemoglobin Concent 2018-02-22 22:31:00* Test Item Value Reference Range Interpretation Comments Mean Corpuscular Hemoglobin Concent (test code = 786-4) 32.6 31-35 [facility] CampusRed Cell Distribution Crjpp7504-66-10 22:31:00* Test Item Value Reference Range Interpretation Comments Red Cell Distribution Width (test code = 19692-2) 13.7 11.7 -14.4 [facility] CampusPlatelet Wycra8103-50-26 22:31:00* Test Item Value Reference Range Interpretation Comments Platelet Count (test code = 777-3) 214 140-360 [facility] CampusNeutrophils (%) (Auto)2018-02-22 22:31:00 * Test Item Value Reference Range Interpretation Comments Neutrophils (%) (Auto) (test code = 13134-8) 55.5 38.7-80.0 [facility] CampusLymphocytes (%) (Auto)2018-02-22 22:31:00 * Test Item Value Reference Range Interpretation Comments Lymphocytes (%) (Auto) (test code = 736-9) 29.4 18.0-39.1 [facility] CampusMonocytes (%) (Auto)2018-02-22 22:31:00* Test Item Value Reference Range Interpretation Comments Monocytes (%) (Auto) (test code = 5905-5) 11.0 4.4-11.3 [facility] CampusEosinophils (%) (Auto)2018-02-22 22:31:00 * Test Item Value Reference Range Interpretation Comments Eosinophils (%) (Auto) (test code = 713-8) 2.8 0.0-6.0 [facility] CampusBasophils (%) (Auto)2018-02-22 22:31:00* Test Item Value Reference Range Interpretation Comments Basophils (%) (Auto) (test code = 706-2) 1.2 0.0-1.0 H [facility] CampusIM GRANULOCYTES %2018-02-22 22:31:00* Test Item Value Reference Range Interpretation Comments IM GRANULOCYTES % (test code = IM GRANULOCYTES %) 0.1 0.0- 1.0 [facility] CampusNeutrophils # (Auto)2018-02-22 22:31:00* Test Item Value Reference Range Interpretation Comments Neutrophils # (Auto) (test code = 751-8) 4.1 2.1-6.9 [facility] CampusLymphocytes # (Auto)2018-02-22 22:31:00* Test Item Value Reference Range Interpretation Comments Lymphocytes # (Auto) (test code = 31129-6) 2.2 1.0-3.2 [facility] CampusMonocytes # (Auto)2018-02-22 22:31:00* Test Item Value Reference Range Interpretation Comments Monocytes # (Auto) (test code = 742-7) 0.8 0.2-0.8 [facility] CampusEosinophils # (Auto)2018-02-22 22:31:00* Test Item Value Reference Range Interpretation Comments Eosinophils # (Auto) (test code = 711-2) 0.2 0.0-0.4 [facility] CampusBasophils # (Auto)2018-02-22 22:31:00* Test Item Value Reference Range Interpretation Comments Basophils # (Auto) (test code = 704-7) 0.1 0.0-0.1 [facility] CampusAbsolute Immature Granulocyte (auto 2018-02-22 22:31:00* Test Item Value Reference Range Interpretation Comments Absolute Immature Granulocyte (auto (marisol t code = Absolute Immature Granulocyte (auto) 0.01 0-0.1 [facility]
== END 2020-05-07 17:30 | disposition home or self-care (01) ==
LOC: ER 16:20
DX: M54.31 Sciatica, right side (principal); I10 Essential (primary) hypertension; E11.42 Type 2 diabetes mellitus with diabetic polyneuropathy; E78.5 Hyperlipidemia, unspecified
CPT/HCPCS: 99284; J1885

== ENCOUNTER 2020-05-09 19:05 | Emergency (ER) | payer BC ==
[~2020-05-09] VITALS: Ht 154.9 cm; Wt 77.6 kg
--- OUTSIDE RECORDS SUMMARY | 2020-05-09 19:19 | XMS REPORT | Continuity of Care Document ---
Author Author [facility] t Organization [facility] Address [address] [place] [address] Phone Unavailable Care Team Providers Care Track Service Worker Name Role Phone KYLE JONES DO Felipa LARA PCP DIAMOND LOPEZ M.D. Attphys Unavailable VIOLA BARBOZA Attphys Unavailable Shmuel BONILLA Attphys Unavailable Phyllis JULIEN Attphys Unavailable Calli OTERO Attphys Unavailable VIOLA BARBOZA Admphys Unavailable Payers Payer Name Policy Type Policy Number Effective Date Expiration Date [facility] [id number] 2019 00:00:00 [facility] Problems Condition Name Condition Details Condition Category Status Onset Date Resolution Date Last Treatment Date Treating Clinician Comments Source Diabetes mellitus Diabetes Problem Active 2015-07-27 00:00:00 [facility] Hypertension Hypertension Problem Active 2015-07-27 00:00:00 [facility] Chest pain Chest pain Problem Active 2014-12-18 00:00:00 [facility] Hypertension Hypertension Problem Active 2014-12-18 00:00:00 [facility] Rib pain on left side Rib pain on left side Problem Active [facility] Neck muscle spasm Neck muscle spasm Problem Active [facility] Chronic pain of both shoulders Chronic pain of both shoulders Problem Active [facility] Arthralgia of both knees Arthralgia of both knees Problem Active [facility] History of cardiomyopathy History of cardiomyopathy Problem Resolved [facility] History of Diabetes mellitus, type 2 History of Diabetes bakari litus, type 2 Problem Resolved [facility] History of High blood pressure History of High blood pressure Probl em Resolved [facility] Claudication of both lower extremities Claudication of both lower extremities Problem Active [facility] Prolonged capillary refill time Prolonged capillary refill time Pro blem Active [facility] NELLY positive NELLY positive Problem Active [facility] Sciatica Problem Active [facility] Allergies, Adverse Reactions, Alerts Allergy Name Allergy Type Status Severity Reaction(s) Onset Date Inacti ve Date Treating Clinician Comments Source Promethazine Allergy to substance Active Mild ANXIETY 2020-05-07 00:00: 00 [facility] promethazine DA Active [place] 2013-08-26 00:00:00 [facility] Phenergan Allergy to drug (finding) Active [facility] Family History Family Member Diagnosis Comments Start Date Stop Date Source Mother Family history of rheumatoid arthritis [facility] Social History Social Habit Start Date Stop Date Quantity Comments Source Sex Ass[birth year] At 1970 00:00:00 1970 00:00:00 Female [facility] Smoking Status Start Date Stop Date Source [facility] smoked tobacco (finding[facility] Medications Ordered Medication Name Filled Medication Name Start Date Stop Da te Current Medication? Ordering Clinician Indication Dosage Frequency Signature (SIG) Comments Components Source Ibuprofen 800 MG Oral Tablet Ibuprofen 800 MG Oral Tablet 2020-02-18 0 00:00:00 Yes Q0.3333D TAKE 1 TABLET 3 TIMES DAILY WITH FOOD A S NEEDED. [facility] Ondansetron 4 MG Oral Tablet Disintegrating Ondansetro n 4 MG Oral Tablet Disintegrating 2020-03-16 00:00:00 Yes 1 Q6H TAKE 1 TABLET Every 6 hours PRN nausea and comiting [facility] hydroCHLOROthiazide 25 MG Oral Tablet hydroCHLOROthiazide 25 MG Oral Tablet 2020-03-16 00:00:00 Yes TAKE 1 TABLET BY M OUTH DAILY [facility] Citalopram Hydrobromide 20 MG Oral Tablet Citalopram H ydrobromide 20 MG Oral Tablet 2020-03-16 00:00:00 Yes 1 QD TAKE 1 TABLET LIZETH LY. [facility] amLODIPine Besylate 5 MG Oral Tablet amLODIPine Besylate 5 M G Oral Tablet 2020-03-16 00:00:00 Yes 1 QD TAKE 1 TABLET YANY Y [facility] Metoprolol Tartrate 25 MG Oral Tablet Metoprolol Tartrate 25 MG Oral Tablet 2020-03-16 00:00:00 Yes 1 Q0.5D TAKE 1 TABLET TWIC E DAILY [facility] Synjardy XR 25-1000 MG Oral Tablet Extended Release 24 Hour Synjardy XR 25-1000 MG Oral Tablet Extended Release 24 Hour 2020-03-16 00:00:00 Yes 1 Q0.5D TAKE 1 TABLET TWICE DAILY [facility] Ozempic (1 MG/DOSE) 2 MG/1.5ML Subcutaneous Solution P en-injector Ozempic (1 MG/DOSE) 2 MG/1.5ML Subcutaneous Solution Pen-injector 2020-03-16 00:00:00 Yes 1.5 1xW INJECT 1.5 ML Weekly [facility] Chlorthalidone Chlorthalidone 2019-09-01 04:06:00 2020-05-07 00:00:00 No 25 Daily [facility] Insulin Aspart 70/30 10ML Vial Insulin Aspart 70/30 10ML Via l 2019-09-01 04:06:00 2020-03-12 00:00:00 No 10 Before Meals [facility] Insulin Glargine Insulin Glargine 2019-09-01 04:06:00 2020-03-12 00:00 :00 No 20 Bedtime [facility] Insulin Lispro Insulin Lispro 2019-09-01 04:06:00 2020-03-12 00:00:00 No 0 Before Meals And At Bedtime [facility] Valsartan (Diovan) 160 Mg TAB Valsartan (Diovan) 160 Mg TAB 2018 04:06:00 2020-03-12 00:00:00 No 320 Daily [facility] Aspirin (Aspirin Chew) 81 Mg CHEW Aspirin (Aspirin Chew) 81 Mg CHEW 2019-08-31 04:37:00 2020-03-12 00:00:00 No 81 Daily [facility] Metoprolol Tartrate (Lopressor) 25 Mg TAB Metoprolol T artrate (Lopressor) 25 Mg TAB 2015-07-29 07:05:00 Yes 25 Every 12 Hours [facility] Simvastatin (Zocor) 40 Mg TABLET Simvastatin (Zocor) 40 Mg T ABLET 2015-07-29 07:05:00 2020-03-12 00:00:00 No 40 Bedtime [facility] Glimepiride (Amaryl) 2 Mg TABLET Glimepiride (Amaryl) 2 Mg T ABLE 2015-07-29 07:05:00 2019-09-01 00:00:00 No 4 Twice Daily Befo re Meals [facility] Aspirin Aspirin 2015-07-29 07:05:00 2019-08-31 00:00:00 No [address] [facility] Hydralazine Hcl Hydralazine Hcl 2015-07-29 07:05:00 2019-08-31 00:00:00 No 50 Three Times A Day [facility] Hydrochlorothiazide Hydrochlorothiazide 2015-07-29 07:05:00 2019-08 00:00:00 No 25 Daily [facility] Olmesartan Medoxomil (Benicar) 20 Mg TABLET Olmesartan Medoxomil (Benicar) 20 Mg TABLET 2015-07-29 07:05:00 2016-08-16 00:00:00 No 40 Lizeth ly [facility] Famotidine (Pepcid) 20 Mg TABLET Famotidine (Pepcid) 20 Mg T ABLE 2015-07-29 07:05:00 2016-08-15 00:00:00 No 20 Twice Daily Befo re Meals [facility] [id number] [id number] 2014-12-19 15:28:00 2015-07-27 00:00:00 No 81 Every Morning [facility] Famotidine (Pepcid) 20 Mg TABLET Famotidine (Pepcid) 20 Mg T ABLE 2014-12-19 15:28:00 2015-07-27 00:00:00 No 20 Twice Daily Befo re Meals [facility] Amlodipine Besylate Amlodipine Besylate Yes Daily [facility] Bifidobacterium Infantis (Align) 4 Mg CAPSULE Bifidoba cterium Infantis (Align) 4 Mg CAPSULE Yes 4 Daily [facility] Dicyclomine Hcl Dicyclomine Hcl Yes 20 Twice A Day [facility] Hydrochlorothiazide Hydrochlorothiazide Yes 25 Daily [facility] Semaglutide (Ozempic) 0.25 Mg/0.2 Ml PEN.INJCTR Semagl utide (Ozempic) 0.25 Mg/0.2 Ml PEN.INJCTR Yes .5 Q Weekly [facility] Empagliflozin/Metformin Hcl (Synjardy 12.5-1,000 Mg Ta blet) 1 Each TABLET Empagliflozin/Metformin Hcl (Synjardy 12.5-1,000 Mg Tablet) 1 Each TABLET 2020-05-07 00:00:00 No Twice A Day [facility] Clonazepam Clonazepam 2020-03-18 00:00:00 No .5 As Needed [facility] Cyclobenzaprine Hcl Cyclobenzaprine Hcl 2019-08-31 00:00:00 No 10 Three Times A Day as needed for Muscle Spasms [facility] Hydroxychloroquine Sulfate Hydroxychloroquine Sulfate 2018 00:00:00 No 400 Daily [facility] Metformin Hcl Metformin Hcl 2019-08-31 00:00:00 No 500 Bedtime [facility] Glimepiride Glimepiride 2015-07-29 00:00:00 No 2 T wice A Day [facility] Hydralazine Hcl Hydralazine Hcl 2015-07-29 00:00:00 No 100 Twice A Day [facility] Nebivolol Hcl (Bystolic) 10 Mg TABLET Nebivolol Hcl (Bystolic) 1 0 Mg TABLET 2015-07-29 00:00:00 No 10 Daily [facility] Olmesartan Med/Amlodipine/Hctz (Tribenzor 40-10-25 Mg Tablet) 1 Each TABLET Olmesartan Med/Amlodipine/Hctz (Tribenzor 40-10-25 Mg Tablet) 1 Each TABLET 2015-07-27 00:00:00 No 1 Daily [facility] Clonidine Hcl (Catapres) 0.1 Mg TABLET Clonidine Hcl (Catapres) 0.1 Mg TABLET 2014-12-18 00:00:00 No 1 As Needed [facility] Dexamethasone Dexamethasone 2014-12-18 00:00:00 No 3 Twice A Day [facility] Nebivolol Hcl (Bystolic) 5 Mg TABLET Nebivolol Hcl (Bystolic) 5 Mg TABLET 2014-12-18 00:00:00 No [facility] Acetaminophen/Codeine Phosphate (Tylenol # 3*) 1 Ea TA B Acetaminophen/Codeine Phosphate (Tylenol # 3*) 1 Ea TAB 2014-06-01 00:00:00 No 30 0 Qhs [facility] Linagliptin/Metformin Hcl (Jentadueto 2.5 Mg-1000 Mg T ab) 1 Each TABLET Linagliptin/Metformin Hcl (Jentadueto 2.5 Mg-1000 Mg Tab) 1 Each TABLET 2014-06-01 00:00:00 No 1 Twice A Day [facility] Isosorbide Mononitrate Isosorbide Mononitrate 2014-03-30 00:00:00 No 60 Rt Daily [facility] Olmesartan Med/Amlodipine/Hctz (Tribenzor 40-5-25 Mg T ablet) 1 Each TABLET Olmesartan Med/Amlodipine/Hctz (Tribenzor 40-5-25 Mg Tablet) 1 Each TABLET 2014-03-30 00:00:00 No 1 Daily [facility] Pregabalin (Lyrica) 75 Mg CAP Pregabalin (Lyrica) 75 Mg CAP 2014-03-30 00:00:00 No 75 Three Times A Day [facility] Tapentadol Hcl (Nucynta) 75 Mg TABLET Tapentadol Hcl (Nucynta) 7 5 Mg TABLET 2014-03-30 00:00:00 No 75 Q8 Hrs Prn [facility] Glimepiride (Amaryl) 2 Mg TABLET Glimepiride (Amaryl) 2 Mg TABLE T 2013-08-25 00:00:00 No 1 Twice Daily [facility] Liraglutide (Victoza 2-Ricardo) 0.6 Mg/0.1 Ml PEN.INJCTR L iraglutide (Victoza 2-Ricardo) 0.6 Mg/0.1 Ml PEN.INJCTR 2013-08-25 00:00:00 No 1 Daily [facility] Metformin Hcl (Glucophage Xl) 500 Mg TABCR Metformin H cl (Glucophage Xl) 500 Mg TABCR 2013-08-25 00:00:00 No 500 Rt Bid [facility] Dhcodeine Bt/Acetaminophn/Caff (Trezix Capsule) 1 Each CAPSULE Dhcodeine Bt/Acetaminophn/Caff (Trezix Capsule) 1 Each CAPSULE 2012-06-06 00: 00:00 No 2 Every 4 Hours [facility] Hydrocodone Bit/Acetaminophen (Hydrocet 5-500 Capsule) 1 Each CAPSULE Hydrocodone Bit/Acetaminophen (Hydrocet 5-500 Capsule) 1 Each CAPSULE 2012-06-06 00:00:00 No Every 4-6 Hours [facility] Levothyroxine Sodium Levothyroxine Sodium 2012-06-06 00:00:00 No 1 Daily [facility] Vital Signs Vital Name Observation Time Observation Value Comments Source Weight 2020-05-07 16:12:00 171 [lb_av] [facility] BMI (Body Mass Index) 2020-05-07 16:12:00 32.3 kg/m2 [facility] Body Temperature 2020-03-18 15:35:00 97 [degF] [facility] Weight 2020-03-16 13:17:00 149 [lb_av] [facility] Body height 2020-03-16 13:17:00 61 [in_us] [facility] Body mass index (BMI) [Ratio] 2020-03-16 13:17:00 28.15 kg/m2 [facility] Body temperature 2020-03-16 13:17:00 97.8 [degF] [facility] Heart Rate 2020-03-16 13:17:00 83 /min [facility] Respiratory rate 2020-03-16 13:17:00 16 /min [facility] Systolic blood pressure 2020-03-16 13:16:00 146 mm[Hg] Loca tion: LUE; Position: Sitting [facility] Diastolic blood pressure 2020-03-16 13:16:00 86 mm[Hg] Loc ation: LUE; Position: Sitting [facility] Procedures Procedure Date / Time Performed Performing Clinician Sour e [QL] CREATINE KINASE, TOTAL 2020-04-01 00:00:00 [facility] [QL] NELLY PANEL, COMPREHENSIVE 2020-04-01 00:00:00 [facility] [QL] COMPLEMENT COMP C3 + C4 2020-04-01 00:00:00 [facility] COLONOSCOPY AND BIOPSY 2020-03-18 00:00:00 [facility] XRAY Ribs unilateral [id number] 2020-03-16 [facility]:00[facility] Spine cervical 2 or 3 view [id number] 2020-03-16 00:00:00 [facility] XRAY Shoulder 2+ Views Bilateral [id number] 2020-03-16 00:00:00 [facility] XRAY Knee 1-2 Views Bilateral [id number] 2020-03-16 00:00:00 [facility] History of Section [facility] History of [facility]ste[facility] Plan of Care Planned Activity Planned Date Details Comments Source Instructions Back Pain [facility] Encounters Start Date/Time End Date/Time Encounter Type Admission Type [facility] Facility Care Department Encounter ID Source 2020-05-07 16:20:00 2020-05-07 17:30:00 Departed Emergency Room [facility] [id number] [facility] dical [place] 2020-03-18 12:20:00 2020-03-18 12:20:00 Registered Surgical Day Care [facility] [id number] [facility] 2020-03-16 13:00:00 2020-03-16 13:00:00 Appointment; DIAMOND LOPEZ M.D. DIAMOND LOPEZ M.D. [facility] [id number] [facility] 2019-08-31 01:19:00 2019-09-01 17:45:00 Discharged Inpatient (obs) 1 VIOLA BARBOZA [facility] [id number] [facility] 2019-06-29 17:51:00 2019-06-29 19:10:00 Departed Emergency Room 1 ALIRIO BONILLA [facility] [id number] [facility] 2019-01-22 15:50:00 2019-01-22 21:31:00 Departed Emergency Room 1 ALLIE JULIEN [facility] [id number] [facility] 2018-02-22 18:11:00 2018-02-23 01:26:00 Departed Emergency Room 1 JOSUÉ OTERO [facility] [id number] [facility] Results Test Description Test Time Test Comments Results Result Comments Source Capillary blood glucose measurement by glucometer (mas s/volume) 2020-03-18 12:37:00 Test Item Bedside Glucose (test code = 99391-5) 84 70-120 Meter ID: [id number] Health [facility]entonBlood leukocytes automated count (number/volume)2020-03-15 12:56:00* Test Item Value Reference Range Interpretation Comments White Blood Count (test code = 6690-2) 5.20 4.8-10.8 [facility] automated count (number/volume)2020-03-15 12:56:00* Test Item Value Reference Range Interpretation Comments Red Blood Count (test code = 789-8) 5.11 3.6-5.1 [facility] hemoglobin measurement (moles/volume)2020-03-15 12:56:00* Test Item Value Reference Range Interpretation Comments Hemoglobin (test code = 25138-4) 13.7 12.0-16.0 [facility] hematocrit (volume fraction)2020-03-15 12:56:00* Test Item Value Reference Range Interpretation Comments Hematocrit (test code = 4544-3) 44.5 34.2-44.1 [facility] erythrocyte mean corpuscular [id number] 12:56:00* Test Item Value Reference Range Interpretation Comments Mean Corpuscular Volume (test code = 787-2) 87.1 81-99 [facility] mean corpuscular hemoglobin (mass per erythrocyte)2020-03-15 12:56:00* Test Item Value Reference Range Interpretation Comments Mean Corpuscular Hemoglobin (test code = 785-6) 26.8 28-32 [facility] mean corpuscular hemoglobin concentration measurement (mass/volume)2020-03-15 12:56:00* Test Item Value Reference Range Interpretation Comments Mean Corpuscular Hemoglobin Concent (test code = 786-4) 30.8 31-35 [facility]entonRDW [id number] 12:56:00* Test Item Value Reference Range Interpretation Comments Red Cell Distribution Width (test code = 99698-3) 14.1 11.7 -14.4 [facility]Autscionhealthed blood platelet count (count/volume)2020-03-15 12:56:00* Test Item Value Reference Range Interpretation Comments Platelet Count (test code = 777-3) 200 140-360 [facility]Aut[facility]ion[facility]althed blood segmented neutrophil count as percentage of total [id number] 12:56:00* Test Item Value Reference Range Interpretation Comments Neutrophils (%) (Auto) (test code = 09278-3) 57.5 38.7-80.0 [facility]Aut[facility]ion[facility]alt[facility] blood lymphocyte count as percentage ot total [id number] 12:56:00* Test Item Value Reference Range Interpretation Comments Lymphocytes (%) (Auto) (test code = 736-9) 25.8 18.0-39.1 [facility] blood monocyte count as percentage of total [id number] 12:56:00* Test Item Value Reference Range Interpretation Comments Monocytes (%) (Auto) (test code = 5905-5) 11.9 4.4-11.3 [facility] blood eosinophil count as percentage of total [id number] 12:56:00* Test Item Value Reference Range Interpretation Comments Eosinophils (%) (Auto) (test code = 713-8) 3.1 0.0-6.0 [facility] blood basophil count as percentage of total [id number] 12:56:00* Test Item Value Reference Range Interpretation Comments Basophils (%) (Auto) (test code = 706-2) 1.5 0.0-1.0 [facility]entonFluoroscopic procedure less than one hour [id number] 12:56:00* Test Item Value Reference Range Interpretation Comments IM GRANULOCYTES % (test code = IM GRANULOCYTES %) 0.2 0.0- 1.0 [facility] neutrophil count 2020-03-15 12:56:00* Test Item Value Reference Range Interpretation Comments Neutrophils # (Auto) (test code = 751-8) 3.0 2.1-6.9 [facility] lymphocytes count (number/volume) 2020-03-15 12:56:00* Test Item Value Reference Range Interpretation Comments Lymphocytes # (Auto) (test code = 56816-0) 1.3 1.0-3.2 [facility] monocytes automated count (number/volume)2020-03-15 12:56:00* Test Item Value Reference Range Interpretation Comments Monocytes # (Auto) (test code = 742-7) 0.6 0.2-0.8 [facility] eosinophil count 2020-03-15 12:56:00* Test Item Value Reference Range Interpretation Comments Eosinophils # (Auto) (test code = 711-2) 0.2 0.0-0.[address] [facility] basophil count (count/volume)2020-03-15 12:56:00* Test Item Value Reference Range Interpretation Comments Basophils # (Auto) (test code = 704-7) 0.1 0.0-0.1 [facility]entonFluoroscopic procedure less than one hour [id number] 12:56:00* Test Item Value Reference Range Interpretation Comments Absolute Immature Granulocyte (auto (marisol t code = Absolute Immature Granulocyte (auto) 0.01 0-0.1 [facility]Fluoroscopic procedure less than one hour [id number] 12:50:00* Test Item Value Reference Range Interpretation Comments Coronavirus (PCR) (test code = Coronavirus (PCR)) NOT DETECTED NOTD ETECTED SARS-COV-2 (COVID19), HIGHRISK, RT-PCRNegative results do not preclude SARS-CoV- 2 infection and should not be used as the sole basis for patient management deci sions. Negative results must be combined with clinical observations, patient his tory, and epidemiological information. Optimum specimen types and timing for pea k viral levels during infections caused by SARS-CoV-2 have not been determined. Collection of multiple specimens ot types of specimens may be necessary to detec t virus. Improper specimen collection and handling, sequence variability under p rimers/probes, or organism present below the limit of detection may lead to fals e negative results. Positive and negative predictive values of testing are highl y dependent on prevalance. False negative test results are more likely when prev alence is high.The expected result is negative (not detected).The SARS-CoV-2 marisol t is intended for the qualitative detection of nucleic acid from SARS-CoV-2 in n asopharyngeal and oropharyngeal swab samples from patients who meet COVID-19 cli nical and or epidemiological criteria. For lower respiratory tract specimens, th e assay is submitted for authoriztion by FDA under an Emergency Use Authorizatio n (EUA). Testing methodology is real time RT-PCR. If received as separate collec tion devices, nasopharygeal and oropharyngeal specimens are combined for analysi s. Additional specimens may be split to a separate accession for analysi and rep orting as this test includes a single unit of service.Test results must be corre lated with clinical presentation and evaluated in the context of other laborator y and epidemiologic data. Test performance can be affected because the epidemiol ogy and clinical spectrum of infection caused by SARS-CoV-2 is not fully known. For example, the optimum types of specimens to collect and when during the cours e of infection these specimens are most likely to contain detectable viral RNA m ay not be known.This test has not been Food and Drug Administration (FDA) cleare d or approved and has been authorized by FDA under an Emergency Use Authorizatio n (EUA). The test is only authorized for the duration of the declaration that ci rcumstances exist justifying the authorization of emergency use of in vitro diag nostic tests for detection and/or diagnosis of SARS-CoV-2 under section 564(b) o f the Act, 21 U.S.C. section 360bbb-3(b)(1), unless the authorization is termina jesus or revoked sooner. [facility] are certified under the C linical Laboratory Improvement Amendments of 1988 (CLIA), 42 U.S.C. section 263a , to perform high complexity tests.Testing performed by [facility] [id number] [place], [place] [id number] Director: Poli Flowers M.D.CLIA # [id number] [facility] Coronavirus 2019 [id number] 23:40:00* Test Item Value Reference Range Interpretation Comments Novel Coronavirus 2019 nCoV (test code = COVID19) Negative Nega tive Does patient have the clinical criteria consistent with COVID-19? YIs the patien t going to be discharged home? Y- CT ABD PELVIS W/O [id number] 14:27:00 Name: IRENA VILLEGAS [facility] : 1970 Age/S: 50 / F [address] [facility] Unit #: [id number] Loc: [place] [address] Phys: Farzad Dominguez MD Acct: [id number] Di s Date: Status: REG ER PHONE #: Exam Date: 02/25/2020 1413 FAX #: Reason: pain, pyelonephritis, diffuse pain EXAMS: CPT CODE: [id number] CT ABD PELVIS W/O CONT 83094 REASON FOR EXAM: pain, pyelonephritis, diffuse pain EXAM ORDER DATE: 02/25/2020 1:21 PM Ordering: Farzad Dominguez MD Attending:Farzad talamantes MD Location:[facility] PROCEDURE: - CT ABD PELVIS W/O CONT [...] RT(R),CT CTDI: DL P: Trnscb Date/Time: 02/25/2020 (2647) t.[email or web address].VTL O rig Print D/T: S: 02/25/2020 (0333) PAGE 1 Signed Re port UR HCG [id number] 13:47:00* Test Item Value Reference Range Interpretation Comments UR HCG QUAL (test code = HCGQLU) NEGATIVE This HCGQL test is NOT applicable for MALE patients.Check with nurse about probable order error.If Tumor Marker Test needed, nurse should order test "HCGTU"(Test #550.12282) BASIC METABOLIC [id number] 13:41:00* Test Item Value Reference Range Interpretation [...] CA) 8.6 mg/dL 8.4-10.2 N HEPATIC FUNCTION [id number] 13:41:00* Test Item Value Reference Range Interpretation [...] code = ALKP) 88 U/L 38-126 N [id number] 13:41:00* Test Item Value Reference Range Interpretation Comments LIPASE (test code = LIP) 120 U/L 128-270 L HCG SERUM [id number] 13:41:00* Test Item Value Reference Range Interpretation Comments HCG SERUM QUAL (test code = HCGQL) POSITIVE NEGATIVE A This HCGQL test is NOT applicable for MALE patients.Check with nurse about probable order error.If Tumor Marker Test needed, nurse should order test "HCGTU"(Test #[id number]) [id number]-[id number] 13:41:00* Test Item Value Reference Range Interpretation Comments TROPONIN-I (test code = TROPI) <0.015 ng/mL 0.00-0.056 N BASIC METABOLIC [id number] 13:25:00* Test Item Value Reference Range Interpretation [...] CA) 8.6 mg/dL 8.4-10.2 N HEPATIC FUNCTION [id number] 13:25:00* Test Item Value Reference Range Interpretation [...] code = ALKP) 88 U/L 38-126 N REPPEO8488-14-26 13:25:00* Test Item Value Reference Range Interpretation Comments LIPASE (test code = LIP) 120 U/L 128-270 L HCG SERUM [id number] 13:25:00* Test Item Value Reference Range Interpretation Comments HCG SERUM QUAL (test code = HCGQL) NEGATIVE [id number] 13:25:00* Test Item Value Reference Range Interpretation Comments TROPONIN-I (test code = TROPI) <0.015 ng/mL 0.00-0.056 N BASIC METABOLIC [id number] 13:19:00* Test Item Value Reference Range Interpretation [...] CA) 8.6 mg/dL 8.4-10.2 N HEPATIC FUNCTION [id number] 13:19:00* Test Item Value Reference Range Interpretation [...] TOTAL (test code = ALKP) IUnit/L 45-117 [id number] 13:19:00* Test Item Value Reference Range Interpretation Comments LIPASE (test code = LIP) Unit/L 144-286 HCG SERUM [id number] 13:19:00* Test Item Value Reference Range Interpretation Comments HCG SERUM QUAL (test code = HCGQL) NEGATIVE [id number] 13:19:00* Test Item Value Reference Range Interpretation Comments TROPONIN-I (test code = TROPI) ng/mL 0-0.045 URINALYSIS [id number] 13:18:00* Test Item Value Reference Range Interpretation [...] per HPF NONE Urine Source? Clean CatchURINALYSIS MBSYYBSK0400-34-04 13:15:00* Test Item Value Reference Range Interpretation [...] HPF NONE Urine Source? Clean CatchCBC W/O [id number] 13:14:00* Test Item Value Reference Range Interpretation [...] 11.3 fL 6.7-11.0 H - US ABDOMEN [id number] 11:22:00 Name: IRENA VIL[facility] : 1970 Age/S: 50 / F [address] [facility] Unit #: [id number] Loc: [place] [address] Phys: Yen La Acct: [id number] Dis Date: Status: REG CLI PHONE #: [phone] Exam Date: 02/24/2020 1100 FAX #: [phone] Reason: R10.9,R11.10,Z89.898,R19.7 EXAMS: CPT CODE: [id number] US ABDOMEN COMPLETE 23275 HISTORY: Abdominal pain and diarrhea. COMPARISON: None available. Location: [facility]. The liver is hyperechogenic suggesting mild fibrofatty [...] Yen La Technologist: KODY TUCKER RT(R),MOSES Tr [facility] [place] Date/Time: 02/24/2020 (112) MarleenTH4 Orig Print D/ T: S: 02/24/2020 (1126) Probe: PAGE 1 Signed Report Stress Test - Treadmill ONLY 2019-09-04 12:46:00 [place] [address] Patient Name : IRENA VILLEGAS MR #: [id number] : 1970 Age/Sex: 49/F Adm Physician : VIOLA BARBOZA MD Admit Date : 08/31/19 Location : MED/SURG Room/Bed : [facility] REPORT : Myoview Stress Test DATE OF [...] motion abnormalities. _ Yareli Flores MD ABS/JESSICA /[id number] Sign kati Date Dictated By: YARELI FLORES MD Transcribed By: JESSICA on <Electronically signed by YARELI FLORES MD><<Signature on File>> 09/16/19 1544 COPY TO: Bedside [id number] 15:35:00* Test Item Value Reference Range Interpretation Comments Bedside Glucose (test code = 40821-5) 358 70-120 H Meter ID: [id number] [facility] 2019-09-01 03:39:00* Test Item Value Reference Range Interpretation Comments Sodium Level (test code = 2951-2) 136 136-145 [facility] Pftzl8439-20-87 03:39:00* Test Item Value Reference Range Interpretation Comments Potassium Level (test code = 2823-3) 3.5 3.5-5.1 [facility]entonChloride Zakzb8733-24-80 03:39:00* Test Item Value Reference Range Interpretation Comments Chloride Level (test code = 2075-0) 104 98-107 [facility]entonCarbon Dioxide Chiwz2625-00-67 03:39:00* Test Item Value Reference Range Interpretation Comments Carbon Dioxide Level (test code = 2028-9) 21 22-29 L [facility]entonAnion Bii4395-71-03 03:39:00* Test Item Value Reference Range Interpretation Comments Anion Gap (test code = 21702-8) 14.5 8-16 [facility]entonBlood Urea Itcfnuda5828-65-34 03:39:00* Test Item Value Reference Range Interpretation Comments Blood Urea Nitrogen (test code = 3094-0) 23 7-26 VERIFIED PREVIOUS RESULTSTexas Health DentonCreatinine 2019-09-01 03:39:00* Test Item Value Reference Range Interpretation Comments Creatinine (test code = 2160-0) 0.96 0.57-1.11 [facility]entonBUN/Creatinine Cgxsm3932-43-75 03:39:00* Test Item Value Reference Range Interpretation Comments BUN/Creatinine Ratio (test code = 3097-3) 24 6-25 [facility]entonEstimat Glomerular Filtration Rate 2019-09-01 03:39:00* Test Item Value Reference Range Interpretation Comments Estimat Glomerular Filtration Rate (test code = 519969872) > 60 >60 Ranges were taken from the National Kidney Disease Education Program and the [facility] [employer] literature.Reference ranges:60 or greater: Hvgnll77-48 ( for 3 consecutive months): Chronic kidney disease 15 or less: Kidney failureTexas Health DentonGlucose Dtzev3855-74-24 03:39:00* Test Item Value Reference Range Interpretation Comments Glucose Level (test code = HLF0629) 221 74-118 H [facility]entonCalcium Gvjma9927-18-17 03:39:00* Test Item Value Reference Range Interpretation Comments Calcium Level (test code = 31728-0) 9.0 8.4-10.2 [facility]entonWhite Blood Mfrgr6115-77-85 03:23:00* Test Item Value Reference Range Interpretation Comments White Blood Count (test code = 6690-2) 6.97 4.8-10.8 [facility]entonRed Blood Kjklh5485-77-06 03:23:00* Test Item Value Reference Range Interpretation Comments Red Blood Count (test code = 789-8) 4.70 3.6-5.1 [facility]entonHemoglobin2019-12-16 03:23:00* Test Item Value Reference Range Interpretation Comments Hemoglobin (test code = 59070-1) 12.7 12.0-16.0 [facility]entonHematocrit2019-12-16 03:23:00* Test Item Value Reference Range Interpretation Comments Hematocrit (test code = 4544-3) 39.9 34.2-44.1 [facility]entonMean Corpuscular Bsalgi9811-16-39 03:23:00* Test Item Value Reference Range Interpretation Comments Mean Corpuscular Volume (test code = 787-2) 84.9 81-99 [facility]entonMean Corpuscular Yohfnyjodh8870-30-20 03:23:00* Test Item Value Reference Range Interpretation Comments Mean Corpuscular Hemoglobin (test code = 785-6) 27.0 28-[address] [facility] Hemoglobin Concent 2019-09-01 03:23:00* Test Item Value Reference Range Interpretation Comments Mean Corpuscular Hemoglobin Concent (test code = 786-4) 31.8 31-35 [facility]entonRed Cell Distribution Wfrbl7667-17-66 03:23:00* Test Item Value Reference Range Interpretation Comments Red Cell Distribution Width (test code = 09578-3) 14.4 11.7 -14.4 [facility]entonPlatelet Vuljw7813-33-46 03:23:00* Test Item Value Reference Range Interpretation Comments Platelet Count (test code = 777-3) 165 140-360 [facility]entonNeutrophils (%) (Auto)2019-09-01 03:23:00 * Test Item Value Reference Range Interpretation Comments Neutrophils (%) (Auto) (test code = 20674-4) 54.0 38.7-80.0 [facility]entonLymphocytes (%) (Auto)2019-09-01 03:23:00 * Test Item Value Reference Range Interpretation Comments Lymphocytes (%) (Auto) (test code = 736-9) 31.4 18.0-39.1 [facility]entonMonocytes (%) (Auto)2019-09-01 03:23:00* Test Item Value Reference Range Interpretation Comments Monocytes (%) (Auto) (test code = 5905-5) 10.2 4.4-11.3 [facility]entonEosinophils (%) (Auto)2019-09-01 03:23:00 * Test Item Value Reference Range Interpretation Comments Eosinophils (%) (Auto) (test code = 713-8) 3.2 0.0-6.0 [facility]entonBasophils (%) (Auto)2019-09-01 03:23:00* Test Item Value Reference Range Interpretation Comments Basophils (%) (Auto) (test code = 706-2) 1.1 0.0-1.0 H [facility]entonIM GRANULOCYTES %2019-09-01 03:23:00* Test Item Value Reference Range Interpretation Comments IM GRANULOCYTES % (test code = IM GRANULOCYTES %) 0.1 0.0- 1.0 [facility]entonNeutrophils # (Auto)2019-09-01 03:23:00* Test Item Value Reference Range Interpretation Comments Neutrophils # (Auto) (test code = 751-8) 3.8 2.1-6.9 [facility]entonLymphocytes # (Auto)2019-09-01 03:23:00* Test Item Value Reference Range Interpretation Comments Lymphocytes # (Auto) (test code = 93392-6) 2.2 1.0-3.2 [facility]entonMonocytes # (Auto)2019-09-01 03:23:00* Test Item Value Reference Range Interpretation Comments Monocytes # (Auto) (test code = 742-7) 0.7 0.2-0.8 [facility]entonEosinophils # (Auto)2019-09-01 03:23:00* Test Item Value Reference Range Interpretation Comments Eosinophils # (Auto) (test code = 711-2) 0.2 0.0-0.4 [facility]entonBasophils # (Auto)2019-09-01 03:23:00* Test Item Value Reference Range Interpretation Comments Basophils # (Auto) (test code = 704-7) 0.1 0.0-0.1 [facility]entonAbsolute Immature Granulocyte (auto 2019-09-01 03:23:00* Test Item Value Reference Range Interpretation Comments Absolute Immature Granulocyte (auto (marisol t code = Absolute Immature Granulocyte (auto) 0.01 0-0.1 [facility] Tomballerum or plasma sodium measurement (moles/volume)2019-09-01 02:00:00* Test Item Value Reference Range Interpretation Comments Sodium Level (test code = 2951-2) 136 136-145 [facility] Tomballerum or plasma potassium measurement (moles/volume)2019-09-01 02:00:00* Test Item Value Reference Range Interpretation Comments Potassium Level (test code = 2823-3) 3.5 3.5-5.1 [facility] Tomballerum or plasma chloride measurement (moles/volume)2019-09-01 02:00:00* Test Item Value Reference Range Interpretation Comments Chloride Level (test code = 2075-0) 104 98-107 [facility] Tomballerum or plasma carbon dioxide, total measurement (moles/volume)2019-09-01 02:00:00* Test Item Value Reference Range Interpretation Comments Carbon Dioxide Level (test code = 2028-9) 21 22-29 [facility] Tomballerum or plasma anion cyy3307-52-86 02:00:00* Test Item Value Reference Range Interpretation Comments Anion Gap (test code = 14830-6) 14.5 8-16 [facility] Tomballerum or plasma urea nitrogen measurement (mass/volume)2019-09-01 02:00:00* Test Item Value Reference Range Interpretation Comments Blood Urea Nitrogen (test code = 3094-0) 23 7-26 VERIFIED PREVIOUS RESULTSHCA Houston Healthcare Tomballerum or plasma creatinine measurement (mass/volume)2019-09-01 02:00:00* Test Item Value Reference Range Interpretation Comments Creatinine (test code = 2160-0) 0.96 0.57-1.11 [facility] Tomballerum or plasma urea nitrogen/creatinine mass ultzx8339-17-90 02:00:00* Test Item Value Reference Range Interpretation Comments BUN/Creatinine Ratio (test code = 3097-3) 24 6-25 [facility]entonEstimated glomerular filtration rate (GFR) asvqqapcfozek9369-74-42 02:00:00* Test Item Value Reference Range Interpretation Comments Estimat Glomerular Filtration Rate (test code = 017124773) > 60 >60 Ranges were taken from the National Kidney Disease Education Program and the [facility] Kid[employer] Foundation literature.Reference ranges:60 or greater: Bmrmdf44-33 ( for 3 consecutive months): Chronic kidney disease 15 or less: Kidney failureTexas Health DentonGlucose yqarwofdzlc7638-07-68 02:00:00* Test Item Value Reference Range Interpretation Comments Glucose Level (test code = LIV8184) 221 74-118 [facility] Tomballerum or plasma calcium measurement (mass/volume)2019-09-01 02:00:00* Test Item Value Reference Range Interpretation Comments Calcium Level (test code = 49996-8) 9.0 8.4-10.2 [facility]entonCreatine Xqjcvs0788-02-93 14:52:00* Test Item Value Reference Range Interpretation Comments Creatine Kinase (test code = 2157-6) 91 29-168 [facility]entonCreatine Kinase OR8107-70-62 14:52:00* Test Item Value Reference Range Interpretation Comments Creatine Kinase MB (test code = 80586-3) 1.50 0-5.0 [facility]entonTroponin T6708-55-86 14:52:00* Test Item Value Reference Range Interpretation Comments Troponin I (test code = YOC0885) 0.009 0-0.300 [facility] Tomballerum or plasma creatine kinase measurement (enzymatic activity/volume)2019-08-31 13:10:00* Test Item Value Reference Range Interpretation Comments Creatine Kinase (test code = 2157-6) 91 29-168 [facility] Tomballerum or plasma creatine kinase MB measurement (mass/volume)2019-08-31 13:10:00* Test Item Value Reference Range Interpretation Comments Creatine Kinase MB (test code = 16920-5) 1.50 0-5.0 [facility]entonTroponin I measurement by highly sensitive enzyme uqwtqwatymp2352-32-05 13:10:00* Test Item Value Reference Range Interpretation Comments Troponin I (test code = 18797-4) 0.009 0-0.300 [facility]entonHemoglobin A1c Sklmdby8800-65-34 09:53:00 * Test Item Value Reference Range Interpretation Comments Hemoglobin A1c Percent (test code = Hemoglobin A1c Percent) 15.1 4.0-7.0 H [facility] DentonB-Type Natriuretic Kgsodmn2288-98-86 09:33:00* Test Item Value Reference Range Interpretation Comments B-Type Natriuretic Peptide (test code = 22842-2) 25.2 0-100 [facility]entonThyroid Stimulating Hormone (TSH) 2019-08-31 07:49:00* Test Item Value Reference Range Interpretation Comments Thyroid Stimulating Hormone (TSH) (test code = 00310-2) 1.769 0.350-4.940 [facility]entonTriglycerides Bmrlm1275-33-54 07:34:00* Test Item Value Reference Range Interpretation Comments Triglycerides Level (test code = 2571-8) 132 0-149 [facility]entonCholesterol Notan3895-55-63 07:34:00* Test Item Value Reference Range Interpretation Comments Cholesterol Level (test code = 2093-3) 187 0-199 Less than 200 mg/dL Low Iffx205 - 239 mg/dL Borderline Xwbc401 m g/dl and greater High Risk [facility] DentonLDL Brvyiuwumui1355-28-62 07:34:00* Test Item Value Reference Range Interpretation Comments LDL Cholesterol (test code = 2089-1) 87 60-130 [facility]entonHDL Fpoeuhhfqxq1578-31-46 07:34:00* Test Item Value Reference Range Interpretation Comments HDL Cholesterol (test code = 2085-9) 74 40-60 H [facility]entonCholesterol/HDL Djuxf4865-37-24 07:34:00 * Test Item Value Reference Range Interpretation Comments Cholesterol/HDL Ratio (test code = 9830-1) 2.5 3.0-3.6 L [facility] DentonFluoroscopic procedure less than one hour bkyuzaos4862-41-19 05:36:00* Test Item Value Reference Range Interpretation Comments Hemoglobin A1c Percent (test code = Hemoglobin A1c Percent) 15.1 4.0-7.0 [facility] Tomballerum or plasma triglyceride measurement (mass/volume)2019-08-31 05:36:00* Test Item Value Reference Range Interpretation Comments Triglycerides Level (test code = 2571-8) 132 0-149 [facility] Tomballerum or plasma cholesterol measurement (mass/volume)2019-08-31 05:36:00* Test Item Value Reference Range Interpretation Comments Cholesterol Level (test code = 2093-3) 187 0-199 Less than 200 mg/dL Low Hfrx640 - 239 mg/dL Borderline Ejjz671 m g/dl and greater High Risk [facility] Tomballerum or plasma cholesterol in LDL measurement (mass/volume) 2019-08-31 05:36:00* Test Item Value Reference Range Interpretation Comments LDL Cholesterol (test code = 2089-1) 87 60-130 [facility] Tomballerum or plasma cholesterol in HDL measurement (mass/volume)2019-08-31 05:36:00* Test Item Value Reference Range Interpretation Comments HDL Cholesterol (test code = 2085-9) 74 40-60 [facility] Tomballerum or plasma total cholesterol/cholesterol in HDL mass msfja6167-99-43 05:36:00* Test Item Value Reference Range Interpretation Comments Cholesterol/HDL Ratio (test code = 9830-1) 2.5 3.0-3.6 [facility]entonBNP Dec-gMtz4820-22-15 05:36:00* Test Item Value Reference Range Interpretation Comments B-Type Natriuretic Peptide (test code = 45514-1) 25.2 0-100 [facility] Tomballerum or plasma thyrotropin measurement by detection limit <= 0.005 miu/l (units/volume)2019-08-31 05:36:00* Test Item Value Reference Range Interpretation Comments Thyroid Stimulating Hormone (TSH) (test code = 74513-4) 1.769 0.350-4.940 [facility] DentonCHEST SINGLE (PORTABLE)2019-08-31 02:52:00 [facility] [address] [address] Patient Name: IRENA VILLEGAS MR #: [id number] : 1970 Age/Sex: 49/F Req #: [id number] Adm Physician: Ordered by: ALIRIO ALEXANDRA DO Report #: [id number] Location: ER Room/Bed: Procedure: DX/CHEST SINGLE (PORTABLE) [...] 2:53 AM Dictated By: OSMAR BROWN DO 0253 Transcribed By: JESSICA on 08/31/19 0253 COPY TO: ALIRIO ALEXANDRA DO Total Hfgjveosg1321-68-74 00:21:00* Test Item Value Reference Range Interpretation Comments Total Bilirubin (test code = 1974-2) 0.4 0.2-1.2 [facility]entonAspartate Amino Transf (AST/SGOT) 2019-08-31 00:21:00* Test Item Value Reference Range Interpretation Comments Aspartate Amino Transf (AST/SGOT) (test code = Aspartate Amino Transf (AST/SGOT)) 26 5-34 [facility]entonAlanine Aminotransferase (ALT/SGPT) 2019-08-31 00:21:00* Test Item Value Reference Range Interpretation Comments Alanine Aminotransferase (ALT/SGPT) (test code = 1742-6) 30 0-55 [facility]entonTotal Zwcjkkv5280-32-36 00:21:00* Test Item Value Reference Range Interpretation Comments Total Protein (test code = 2885-2) 6.6 6.5-8.1 [facility]entonAlbumin2019-12-15 00:21:00* Test Item Value Reference Range Interpretation Comments Albumin (test code = 1751-7) 3.2 3.5-5.0 L [facility]entonGlobulin2019-12-15 00:21:00* Test Item Value Reference Range Interpretation Comments Globulin (test code = 89460-6) 3.4 2.3-3.5 [facility]entonAlbumin/Globulin Iqxxk5186-83-03 00:21:00 * Test Item Value Reference Range Interpretation Comments Albumin/Globulin Ratio (test code = 1759-0) 0.9 0.8-2.0 [facility]entonAlkaline Pjdrzecvhfw4911-89-34 00:21:00* Test Item Value Reference Range Interpretation Comments Alkaline Phosphatase (test code = 6768-6) 113 40-150 [facility] Tomballerum or plasma total bilirubin measurement (mass/volume)2019-08-30 22:23:00* Test Item Value Reference Range Interpretation Comments Total Bilirubin (test code = 1974-2) 0.4 0.2-1.2 [facility] DentonFluoroscopic procedure less than one hour zipuerxn3124-36-22 22:23:00* Test Item Value Reference Range Interpretation Comments Aspartate Amino Transf (AST/SGOT) (test code = Aspartate Amino Transf (AST/SGOT)) 26 5-34 [facility] Tomballerum or plasma alanine aminotransferase measurement (enzymatic activity/volume)2019-08-30 22:23:00* Test Item Value Reference Range Interpretation Comments Alanine Aminotransferase (ALT/SGPT) (test code = 1742-6) 30 0-55 [facility] Tomballerum or plasma protein measurement (mass/volume)2019-08-30 22:23:00* Test Item Value Reference Range Interpretation Comments Total Protein (test code = 2885-2) 6.6 6.5-8.1 [facility] Tomballerum or plasma albumin measurement (mass/volume)2019-08-30 22:23:00* Test Item Value Reference Range Interpretation Comments Albumin (test code = 1751-7) 3.2 3.5-5.0 [facility]entonPlasma globulin measurement (mass/volume) 2019-08-30 22:23:00* Test Item Value Reference Range Interpretation Comments Globulin (test code = 87316-0) 3.4 2.3-3.5 [facility] Tomballerum or plasma albumin/globulin mass dbaok8510-46-42 22:23:00* Test Item Value Reference Range Interpretation Comments Albumin/Globulin Ratio (test code = 1759-0) 0.9 0.8-2.0 [facility] Tomballerum or plasma alkaline phosphatase measurement (enzymatic activity/volume)2019-08-30 22:23:00* Test Item Value Reference Range Interpretation Comments Alkaline Phosphatase (test code = 6768-6) 113 40-150 [facility]entonHAND 3+ VIEWS JAKTZ8553-76-34 18:37:00 [facility] [address] [place] [address] Patient Name: IRENA VILLEGAS MR #: [id number] : 1970 Age/Sex: 49/F Req #: [id number] Adm Physician: Ordered by: STEVE ARGUELLES NP Report #: [id number] Location: ER Room/Bed: Procedure: [id number] DX /HAND 3+ VIEWS RIGHT Exam Date: 06/29/19 Exam Time: 1829 REPORT STATUS: Signed Ex am: Right hand [...] JESSICA on 06/29/191842 COPY TO: STEVE ARGUELLES MOTION GRAPHICS ARTIST - MRI BRAIN W/O TBXBXRCC2866-71-82 13:50:00 FAX: Ronald Johns MD [phone] [place]: St: [facility] FAX: Norm Katz [phone] Name: IRENA VILLEGAS [facility] : 1970 Age/S: 49/F [address] [facility] Unit #: [id number] Loc: V.2058 [place] [address] Phys: Ronald Johns MD Acct: [id number] Dis Date: Status: ADM IN PHONE #: [phone] Exam Date: 02/13/2019 1333 FAX #: [phone] Reason: dizziness, hx cva, ru le out cva EXAMS: CPT CODE: [id number] MRI BRAIN W/O CONTRAST 27341 HISTORY: Dizziness/CVA. COMPARISON: Head CT from p . MRI brain without contrast: No acute [...] Technologist: Ekaterina Osorio RT(R)(MR) Trnscrd Date/Time/By: 02/13/2019 (1260) : By: Tamika.TH4 Orig Print D/T: S: 02/13/2019 (2458) PAGE 1 Signed Report [id number] 12:09:00 * Test Item Value Reference Range Interpretation Comments GLUBED (test code = GLUBED) 295 mg/dL 74-106 H Performed by certified digester operator at [facility] FVNVEA2457-49-34 06:21:00* Test Item Value Reference Range Interpretation Comments GLUBED (test code = GLUBED) 274 mg/dL 74-106 H Performed by certified digester operator at [facility] BASIC METABOLIC PHXPG6956-81-45 03:37:00* Test Item Value Reference Range Interpretation [...] result is a direct measurement.========= BASIC METABOLIC PYBUP7287-90-60 03:08:00* Test Item Value Reference Range Interpretation [...] This LDL result is a direct measurement.========= DRLKKPLS-M6368-00-30 03:00:00* Test Item Value Reference Range Interpretation Comments TROPONIN-I (test code = TROPI) <0.015 ng/mL 0-0.045 N COMMENTS TO NUMERICAL CONTROL PROGRAMMER: COLLECT 3 HOURS AFTER PREVIOUS VJKZHLQOIP1R5461-51-68 03:00:00* Test Item Value Reference Range Interpretation Comments GLYCOSYLATED HEMOGLOBIN (HA1C) (test code = GLYHGB) 12.7 % HbA1 4. 8-6.0 H ESTIMATED AVERAGE GLUCOSE (test code = EAG) 318 MG/DL MITCCQGO-R6540-76-29 23:11:00* Test Item Value Reference Range Interpretation Comments TROPONIN-I (test code = TROPI) <0.015 ng/mL 0-0.045 N COMMENTS TO NUMERICAL CONTROL PROGRAMMER: COLLECT 3 HOURS AFTER PREVIOUS VEGHUVFQOFVE0124-68-57 20:50:00* Test Item Value Reference Range Interpretation Comments GLUBED (test code = GLUBED) 328 mg/dL 74-106 H Performed by certified digester operator at [facility] MSNRMU7735-85-54 17:03:00* Test Item Value Reference Range Interpretation Comments GLUBED (test code = GLUBED) 333 mg/dL 74-106 H Performed by certified digester operator at [facility] URINALYSIS HKJQNSSE4331-75-59 15:59:00* Test Item Value Reference Range Interpretation [...] FEW #/HPF NONE A Urine Source? Clean UeherPCDKFM8449-91-63 15:42:00* Test Item Value Reference Range Interpretation Comments GLUBED (test code = GLUBED) 415 mg/dL 74-106 H Performed by certified digester operator at [facility] - XR CHEST 1 [id number] 15:19:00 FAX: Jovana Espinoza DO [place]: B St: REG Name: IRENA CHEN [facility] : [birth year] Age/S: 49/F [address] [facility] Unit #: [id number] Loc: [place] [address] Phys: Jovana Espinoza DO Acct: [id number] Dis Date: Status: REG ER PHONE #: [phone] Exam Date: 02/12/2019 1500 FAX #: [phone] Reason: WEAKNESS EXAMS: CPT CODE: [id number] XR CHEST 1 V 00664 REASON FOR EXAM: WEAKNESS EXAM ORDER DATE: [...] e. at 1519 Reported and signed by: Krystian Page M.D. C C: Jovana Espinoza DO Technologist: Zo Salamanca(R); Evette Bradford RT(R) Trnscrd Date/Time/By: 02/12/2019 (1519) : By: StephenieL Orig Print D/T: S: 02/12/2019 (2488) PAGE 1 Signed Report BASIC METABOLIC [id number] 15:15:00* Test Item Value Reference Range Interpretation [...] code = CA) 9.5 mg/dL 8.5-10.1 N UXCDVZTW-E4856-87-29 15:15:00* Test Item Value Reference Range Interpretation Comments TROPONIN-I (test code = TROPI) <0.015 ng/mL 0-0.045 N - CT HEAD/BRAIN W/O [id number] 14:53:00 Name: IRENA VILLEGAS [facility] : 1970 Age/S: 49 / F [address] [facility] Unit #: [id number] Loc: [place] [address] Phys: Jovana Espinoza DO Acct: [id number] Dis Date: Status: REG ER PHONE #: [phone] Exam Date: 02/12/2019 1450 FAX #: [phone] Reason: dizzy, headache EXAMS: CPT CODE: [id number] CT HEAD/BRAIN W/O CONT 42002 REASON FOR EXAM: dizzy, headache EXAM ORDER DATE: 02/12/2019 2:34 PM Ordering M.D.: Jovana Espinoza DO PROCEDURE: - CT HEAD/BRAIN [...] basal ganglia infarct. No acute findings at 5263 Reported and signed by: Krystian Page M.D. CC: Jovana Espinoza DO Technologist:Yahaira Barnes RT(R); SANDY Myers CTDI: DLP: Trnscb Date/Time: 02/12/2019 (4649) [email or web address] Orig Print D/T: S: 02/12/2019 (7797) PAGE 1 Signed Report BASIC METABOLIC [id number] 14:50:00* Test Item Value Reference Range Interpretation [...] code = CA) 9.5 mg/dL 8.5-10.1 N [id number]-[id number] 14:50:00* Test Item Value Reference Range Interpretation Comments TROPONIN-I (test code = TROPI) ng/mL 0-0.045 CBC W/O ZWTE4974-30-24 14:48:00* Test Item Value Reference Range Interpretation [...] MPV) 12.0 fL 6.7-11.0 H BASIC METABOLIC [id number] 14:48:00* Test Item Value Reference Range Interpretation [...] code = CA) 9.5 mg/dL 8.5-10.1 N [id number]-[id number] 14:48:00* Test Item Value Reference Range Interpretation Comments TROPONIN-I (test code = TROPI) ng/mL 0-0.045 Bedside Pcqqrta5473-39-58 21:28:00* Test Item Value Reference Range Interpretation Comments Bedside Glucose (test code = 21756-3) 299 70-120 H Meter ID: [id number] [facility] 2019-01-22 21:28:00* Test Item Value Reference Range Interpretation Comments Bedside Glucose (test code = 89522-4) 299 70-120 H Meter ID: [id number] Health DentonCreatine Kinase 2019-01-22 17:48:00* Test Item Value Reference Range Interpretation Comments Creatine Kinase MB (test code = 72552-5) 3.00 0-5.0 [facility] [id number] 17:48:00* Test Item Value Reference Range Interpretation Comments Troponin I (test code = XIB6228) < 0.001 0-0.300 [facility] Kinase QY2869-39-40 17:48:00* Test Item Value Reference Range Interpretation Comments Creatine Kinase MB (test code = 20874-9) 3.00 0-5.0 [place] [id number] 17:48:00* Test Item Value Reference Range Interpretation Comments Troponin I (test code = SSS4470) < 0.001 0-0.300 [facility]entonCT BRAIN WH2512-39-60 17:29:00 [place] [address] Patient Name: IRENA VILLEGAS MR #: [id number] : 1970 Age/Sex: 49/F Req #: [id number] Adm Physician: Ordered by: ALLIE JULIEN MD Report #: [id number] Location: ER Room/Bed: Procedure: [id number] CT/ CT BRAIN WO Exam Date: 01/22/19 [...] PM Dictated By: MAGALY YORK MD, MD Electronically Signed By: JESSENIA YORK MD, MD o n 01/22/19 1730 Transcribed By: JESSICA on 01/22/19 1730 COPY TO: ALLIE JULIEN MD Urine [id number] 17:28:00* Test Item Value Reference Range Interpretation Comments Urine WBC (test code = 5821-4) NONE 0-5 [facility] JCP7804-88-91 17:28:00* Test Item Value Reference Range Interpretation Comments Urine RBC (test code = 24711-8) NONE 0-5 [facility] Ewmfbdth3418-66-86 17:28:00* Test Item Value Reference Range Interpretation Comments Urine Bacteria (test code = 83814-3) MANY NONE H [facility] Epithelial Tycii5254-64-00 17:28:00 * Test Item Value Reference Range Interpretation Comments Urine Epithelial Cells (test code = 23184-5) MODERATE NONE [facility] QIM0311-80-32 17:28:00* Test Item Value Reference Range Interpretation Comments Urine WBC (test code = 5821-4) NONE 0-5 [facility] ZIG0554-65-60 17:28:00* Test Item Value Reference Range Interpretation Comments Urine RBC (test code = 68244-0) NONE 0-5 [facility] Kdpgerky0132-81-13 17:28:00* Test Item Value Reference Range Interpretation Comments Urine Bacteria (test code = 50516-9) MANY NONE H [facility]enton[facility] Epithelial Sbgbo4524-82-21 17:28:00 * Test Item Value Reference Range Interpretation Comments Urine Epithelial Cells (test code = 81371-8) MODERATE NONE [facility] [id number] 17:28:00* Test Item Value Reference Range Interpretation Comments Urine WBC (test code = 5821-4) NONE 0-5 [facility] BEC9691-21-23 17:28:00* Test Item Value Reference Range Interpretation Comments Urine RBC (test code = 48416-9) NONE 0-5 [facility] Wfqtofxf5764-79-30 17:28:00* Test Item Value Reference Range Interpretation Comments Urine Bacteria (test code = 30185-8) MANY NONE H [facility] Epithelial Wzstn7548-56-66 17:28:00 * Test Item Value Reference Range Interpretation Comments Urine Epithelial Cells (test code = 22118-1) MODERATE NONE [facility] Viapc0462-44-28 17:19:00* Test Item Value Reference Range Interpretation Comments Urine Color (test code = 5778-6) YELLOW YELLOW [facility] Ooahlqs3885-46-63 17:19:00* Test Item Value Reference Range Interpretation Comments Urine Clarity (test code = 98834-1) SL CLOUDY CLEAR [facility] Specific Urdubev9421-28-41 17:19:00 * Test Item Value Reference Range Interpretation Comments Urine Specific [place] (test code = 5811-5) 1.010 1.010-1.02 5 [facility] fP1187-34-69 17:19:00* Test Item Value Reference Range Interpretation Comments Urine pH (test code = 09982-8) 5 5-7 [facility] Leukocyte Hdkvhqkf3632-20-16 17:19:00* Test Item Value Reference Range Interpretation Comments Urine Leukocyte Esterase (test code = 5799-2) NEGATIVE NEGATIVE [facility] Tkcjocy8867-03-99 17:19:00* Test Item Value Reference Range Interpretation Comments Urine Nitrite (test code = 94925-2) NEGATIVE NEGATIVE [facility] Eidwisu7338-85-05 17:19:00* Test Item Value Reference Range Interpretation Comments Urine Protein (test code = 5804-0) 1+ NEGATIVE H [facility]enton[facility] Glucose (UA)2019-01-22 17:19:00* Test Item Value Reference Range Interpretation Comments Urine Glucose (UA) (test code = 2349-9) 3+ NEGATIVE H [facility] Sguvwtt1899-42-94 17:19:00* Test Item Value Reference Range Interpretation Comments Urine Ketones (test code = 13588-6) NEGATIVE NEGATIVE [facility] Opiates Kjwnck5943-18-71 17:19:00* Test Item Value Reference Range Interpretation Comments Urine Opiates Screen (test code = 02083-3) NEGATIVE NEGATIVE ALL TESTS PERFORMED MANUALLY ON [employer] TOX/SEE TESTTexas Health DentonUrine Barbiturates Xpoqon4950-99-59 17:19:00* Test Item Value Reference Range Interpretation Comments Urine Barbiturates Screen (test code = 739111347) NEGATIVE NEGA TIVE [facility] Phencyclidine Diqrei6741-41-08 17:19:00* Test Item Value Reference Range Interpretation Comments Urine Phencyclidine Screen (test code = 52085-0) NEGATIVE NEGAT SANDRA [facility] Amphetamines Lmlodk8346-97-85 17:19:00* Test Item Value Reference Range Interpretation Comments Urine Amphetamines Screen (test code = 29704-2) NEGATIVE NEGATI VE [facility] Methamphetamines Ijbanm4986-18-04 17:19:00* Test Item Value Reference Range Interpretation Comments Urine Methamphetamines Screen (test code = Urine Metha mphetamines Screen) NEGATIVE NEGATIVE [facility] Benzodiazepines Nwhnbp6644-36-28 17:19:00* Test Item Value Reference Range Interpretation Comments Urine Benzodiazepines Screen (test code = 79397-4) NEGATIVE NEG ATIVE [facility] Cocaine Hiesmg8138-82-88 17:19:00* Test Item Value Reference Range Interpretation Comments Urine Cocaine Screen (test code = 3398-5) NEGATIVE NEGATIVE [facility] Cannabinoids Ajfyla4018-77-65 17:19:00* Test Item Value Reference Range Interpretation Comments Urine Cannabinoids Screen (test code = 21041-3) NEGATIVE NEGATI VE THESE RESULTS ARE FOR MEDICAL TREATMENT ONLYTHIS REPORT CONTAINS UNCONFIR MED SCREENING RESULTS*POSITIVE RESULTS WILL BE CONFIRMED BY REFERENCE LAB UPON R EQUEST CUT-OFFDRUG CLASS CONCENTRATION ng/mLAmphetamines 1000Methamphetamines 1000Cocaine 300Opiate 300Phencyc lidine 25Cannabinoid 50Barbiturates 300Benzodiazepine 300Methadone 300[facility]entonUrine Methadone Wanzak9088-74-55 17:19:00* Test Item Value Reference Range Interpretation Comments Urine Methadone Screen (test code = 53497-7) NEGATIVE NEGATIVE THESE RESULTS ARE FOR MEDICAL TREATMENT ONLYTHIS REPORT CONTAINS UNCONFIR MED SCREENING RESULTS*POSITIVE RESULTS WILL BE CONFIRMED BY REFERENCE LAB UPON R EQUEST CUT-OFFDRUG CLASS CONCENTRATION ng/mLAmphetamines 1000Methamphetamines 1000Cocaine Metabolite 300Opiate 300Phencyc lidine 25Cannabinoid 50Barbiturates 300Benzodiazepine 300Methadone 300[facility] Peihnjcstszk8795-65-70 17:19:00* Test Item Value Reference Range Interpretation Comments Urine Urobilinogen (test code = 27235-5) 0.2 0.2-1 [facility] Ojrvonsjv2428-51-42 17:19:00* Test Item Value Reference Range Interpretation Comments Urine Bilirubin (test code = 1978-6) NEGATIVE NEGATIVE [facility] Kjjaw5754-59-20 17:19:00* Test Item Value Reference Range Interpretation Comments Urine Blood (test code = 32355-9) TRACE NEGATIVE H [facility] Htzzb4511-91-16 17:19:00* Test Item Value Reference Range Interpretation Comments Urine Color (test code = 5778-6) YELLOW YELLOW [facility] Aykytmn1728-04-55 17:19:00* Test Item Value Reference Range Interpretation Comments Urine Clarity (test code = 03004-4) SL CLOUDY CLEAR [facility] Specific Zbocjka1191-32-83 17:19:00 * Test Item Value Reference Range Interpretation Comments Urine Specific [place] (test code = 5811-5) 1.010 1.010-1.02 5 [facility] yX6879-60-26 17:19:00* Test Item Value Reference Range Interpretation Comments Urine pH (test code = 41986-9) 5 5-7 [facility] Leukocyte Ylrwcuaa2086-25-32 17:19:00* Test Item Value Reference Range Interpretation Comments Urine Leukocyte Esterase (test code = 5799-2) NEGATIVE NEGATIVE [facility] Nlcdmoa8319-52-79 17:19:00* Test Item Value Reference Range Interpretation Comments Urine Nitrite (test code = 63834-4) NEGATIVE NEGATIVE [facility] Lhhatai1183-48-40 17:19:00* Test Item Value Reference Range Interpretation Comments Urine Protein (test code = 5804-0) 1+ NEGATIVE H [facility] Glucose (UA)2019-01-22 17:19:00* Test Item Value Reference Range Interpretation Comments Urine Glucose (UA) (test code = 2349-9) 3+ NEGATIVE H [facility] Efhknot2079-43-88 17:19:00* Test Item Value Reference Range Interpretation Comments Urine Ketones (test code = 36922-7) NEGATIVE NEGATIVE [facility] Opiates Dtaplx5673-77-54 17:19:00* Test Item Value Reference Range Interpretation Comments Urine Opiates Screen (test code = 81415-2) NEGATIVE NEGATIVE ALL TESTS PERFORMED MANUALLY ON [employer] TOX/SEE TESTTexas Health DentonUrine Barbiturates Edazuq3506-86-88 17:19:00* Test Item Value Reference Range Interpretation Comments Urine Barbiturates Screen (test code = 302740952) NEGATIVE NEGA TIVE [facility] Phencyclidine Qvuier6181-47-05 17:19:00* Test Item Value Reference Range Interpretation Comments Urine Phencyclidine Screen (test code = 78418-8) NEGATIVE NEGAT SANDRA [facility] Amphetamines Jxvcrl7886-78-94 17:19:00* Test Item Value Reference Range Interpretation Comments Urine Amphetamines Screen (test code = 43323-8) NEGATIVE NEGATI VE [facility] Methamphetamines Qkwhjp4056-08-41 17:19:00* Test Item Value Reference Range Interpretation Comments Urine Methamphetamines Screen (test code = Urine Metha mphetamines Screen) NEGATIVE NEGATIVE [facility] Benzodiazepines Qnstgq6305-22-91 17:19:00* Test Item Value Reference Range Interpretation Comments Urine Benzodiazepines Screen (test code = 93821-5) NEGATIVE NEG ATIVE [facility] Cocaine Ugighk2292-27-29 17:19:00* Test Item Value Reference Range Interpretation Comments Urine Cocaine Screen (test code = 3398-5) NEGATIVE NEGATIVE [facility] Cannabinoids Fimtqn6842-04-40 17:19:00* Test Item Value Reference Range Interpretation Comments Urine Cannabinoids Screen (test code = 32648-2) NEGATIVE NEGATI VE THESE RESULTS ARE FOR MEDICAL TREATMENT ONLYTHIS REPORT CONTAINS UNCONFIR MED SCREENING RESULTS*POSITIVE RESULTS WILL BE CONFIRMED BY REFERENCE LAB UPON R EQUEST CUT-OFFDRUG CLASS CONCENTRATION ng/mLAmphetamines 1000Methamphetamines 1000Cocaine 300Opiate 300Phencyc lidine 25Cannabinoid 50Barbiturates 300Benzodiazepine 300Methadone 300[facility]wood[facility] Methadone Iqwyuj2149-68-96 17:19:00* Test Item Value Reference Range Interpretation Comments Urine Methadone Screen (test code = 48632-8) NEGATIVE NEGATIVE THESE RESULTS ARE FOR MEDICAL TREATMENT ONLYTHIS REPORT CONTAINS UNCONFIR MED SCREENING RESULTS*POSITIVE RESULTS WILL BE CONFIRMED BY REFERENCE LAB UPON R EQUEST CUT-OFFDRUG CLASS CONCENTRATION ng/mLAmphetamines 1000Methamphetamines 1000Cocaine Metabolite 300Opiate 300Phencyc lidine 25Cannabinoid 50Barbiturates 300Benzodiazepine 300Methadone 300[facility]woodUrine Vhaysasobjrn8635-28-04 17:19:00* Test Item Value Reference Range Interpretation Comments Urine Urobilinogen (test code = 31965-0) 0.2 0.2-1 [facility] Dolwabrym2482-55-56 17:19:00* Test Item Value Reference Range Interpretation Comments Urine Bilirubin (test code = 1978-6) NEGATIVE NEGATIVE [facility] Lpcvd6798-28-09 17:19:00* Test Item Value Reference Range Interpretation Comments Urine Blood (test code = 62157-3) TRACE NEGATIVE H [facility] Nvlvr3907-05-79 17:19:00* Test Item Value Reference Range Interpretation Comments Urine Color (test code = 5778-6) YELLOW YELLOW [facility] Qohikwq6935-80-38 17:19:00* Test Item Value Reference Range Interpretation Comments Urine Clarity (test code = 26856-9) SL CLOUDY CLEAR [facility] Specific Ofojixd3462-90-72 17:19:00 * Test Item Value Reference Range Interpretation Comments Urine Specific [place] (test code = 5811-5) 1.010 1.010-1.02 5 [facility] fR8286-29-45 17:19:00* Test Item Value Reference Range Interpretation Comments Urine pH (test code = 89803-3) 5 5-7 [facility] Leukocyte Tkgzkyzd0076-36-27 17:19:00* Test Item Value Reference Range Interpretation Comments Urine Leukocyte Esterase (test code = 5799-2) NEGATIVE NEGATIVE [facility] Xyruuku9851-53-94 17:19:00* Test Item Value Reference Range Interpretation Comments Urine Nitrite (test code = 95789-8) NEGATIVE NEGATIVE [facility] Wcozcbd0177-91-99 17:19:00* Test Item Value Reference Range Interpretation Comments Urine Protein (test code = 5804-0) 1+ NEGATIVE H [facility] Glucose (UA)2019-01-22 17:19:00* Test Item Value Reference Range Interpretation Comments Urine Glucose (UA) (test code = 2349-9) 3+ NEGATIVE H [facility] Tmczrqm2100-76-26 17:19:00* Test Item Value Reference Range Interpretation Comments Urine Ketones (test code = 51632-6) NEGATIVE NEGATIVE [facility] Opiates Tpwnga8873-52-79 17:19:00* Test Item Value Reference Range Interpretation Comments Urine Opiates Screen (test code = 94602-8) NEGATIVE NEGATIVE ALL TESTS PERFORMED MANUALLY ON [employer] TOX/SEE TESTTexas Health DentonUrine Barbiturates Zwlcyc2095-64-31 17:19:00* Test Item Value Reference Range Interpretation Comments Urine Barbiturates Screen (test code = 644074543) NEGATIVE NEGA TIVE [facility] Phencyclidine Zbbkht7358-85-70 17:19:00* Test Item Value Reference Range Interpretation Comments Urine Phencyclidine Screen (test code = 94989-4) NEGATIVE NEGAT SANDRA [facility] Amphetamines Oybufk4888-31-97 17:19:00* Test Item Value Reference Range Interpretation Comments Urine Amphetamines Screen (test code = 69102-0) NEGATIVE NEGATI VE [facility] Methamphetamines Wksylt8899-97-34 17:19:00* Test Item Value Reference Range Interpretation Comments Urine Methamphetamines Screen (test code = Urine Metha mphetamines Screen) NEGATIVE NEGATIVE [facility] Benzodiazepines Rnmnbq4108-19-13 17:19:00* Test Item Value Reference Range Interpretation Comments Urine Benzodiazepines Screen (test code = 17402-4) NEGATIVE NEG ATIVE [facility] Cocaine Gqdztj9215-96-61 17:19:00* Test Item Value Reference Range Interpretation Comments Urine Cocaine Screen (test code = 3398-5) NEGATIVE NEGATIVE [facility] Cannabinoids Kkfljb7308-24-10 17:19:00* Test Item Value Reference Range Interpretation Comments Urine Cannabinoids Screen (test code = 09769-9) NEGATIVE NEGATI VE THESE RESULTS ARE FOR MEDICAL TREATMENT ONLYTHIS REPORT CONTAINS UNCONFIR MED SCREENING RESULTS*POSITIVE RESULTS WILL BE CONFIRMED BY REFERENCE LAB UPON R EQUEST CUT-OFFDRUG CLASS CONCENTRATION ng/mLAmphetamines 1000Methamphetamines 1000Cocaine 300Opiate 300Phencyc lidine 25Cannabinoid 50Barbiturates 300Benzodiazepine 300Methadone 300[facility] BrownwoodUrine Methadone Udulma1983-67-30 17:19:00* Test Item Value Reference Range Interpretation Comments Urine Methadone Screen (test code = 88710-0) NEGATIVE NEGATIVE THESE RESULTS ARE FOR MEDICAL TREATMENT ONLYTHIS REPORT CONTAINS UNCONFIR MED SCREENING RESULTS*POSITIVE RESULTS WILL BE CONFIRMED BY REFERENCE LAB UPON R EQUEST CUT-OFFDRUG CLASS CONCENTRATION ng/mLAmphetamines 1000Methamphetamines 1000Cocaine Metabolite 300Opiate 300Phencyc lidine 25Cannabinoid 50Barbiturates 300Benzodiazepine 300Methadone 300[facility] BrownwoodUrine Yxlkkbtrzelc6684-03-18 17:19:00* Test Item Value Reference Range Interpretation Comments Urine Urobilinogen (test code = 49372-2) 0.2 0.2-1 [facility] Bbkljsnfb5012-62-38 17:19:00* Test Item Value Reference Range Interpretation Comments Urine Bilirubin (test code = 1978-6) NEGATIVE NEGATIVE [facility] Zswol1357-67-11 17:19:00* Test Item Value Reference Range Interpretation Comments Urine Blood (test code = 70602-6) TRACE NEGATIVE H [facility]entonCHEST 2 WECFY1073-77-87 17:18:00 [place] [address] Patient Name: IRENA VILLEGAS MR #: [id number] : 1970 Age/Sex: 49/F Req #: [id number] Adm Physician: Ordered by: ALLIE JULIEN MD Report #: [id number] Location: ER Room/Bed: Procedure: [id number] DX/ CHEST 2 VIEWS Exam Date: 01/22/19 [...] MD, MD 19 Transcribed By: JESSICA on 01/22/190 COPY TO: ALLIE JULIEN MD B-Type Natriuretic Tbnmvpl9893-39-70 17:08:00* Test Item Value Reference Range Interpretation Comments B-Type Natriuretic Peptide (test code = 15294-6) < 10.0 0-100 [facility] Natri[facility]tic Gwqwuri8402-04-46 17:08:00* Test Item Value Reference Range Interpretation Comments B-Type Natriuretic Peptide (test code = 84760-6) < 10.0 0-100 [facility]entonProthrombin Gxyg1328-58-20 17:00:00* Test Item Value Reference Range Interpretation Comments Prothrombin Time (test code = 5902-2) 12.2 11.9-14.5 [facility]entonProthromb Time International Ratio 2019-01-22 17:00:00* Test Item Value Reference Range Interpretation Comments Prothromb Time International Ratio (test code = 6301-6) 0.86 Oral Anticoagulant Therapy INR Values:1. Low Intensity Therapy 1.5 - 2.02 . Moderate Intensity Therapy 2.0 - 3.03. High Intensity Therapy(1) 2.5 - 3. 54. High Intensity Therapy(2) 3.0 - 4.05. Panic Value INR > 5.0 [facility]entonAct[facility] Partial Thromboplast Time 2019-01-22 17:00:00* Test Item Value Reference Range Interpretation Comments Activated Partial Thromboplast Time (test code = 85111-3) 27.1 23.8-35.5 [facility]entonProthrombin Jhfx9036-35-74 17:00:00* Test Item Value Reference Range Interpretation Comments Prothrombin Time (test code = 5902-2) 12.2 11.9-14.5 [facility]entonProthromb Time International Ratio 2019-01-22 17:00:00* Test Item Value Reference Range Interpretation Comments Prothromb Time International Ratio (test code = 6301-6) 0.86 Oral Anticoagulant Therapy INR Values:1. Low Intensity Therapy 1.5 - 2.02 . Moderate Intensity Therapy 2.0 - 3.03. High Intensity Therapy(1) 2.5 - 3. 54. High Intensity Therapy(2) 3.0 - 4.05. Panic Value INR > 5.0 [facility]entonAct[facility] Partial Thromboplast Time 2019-01-22 17:00:00* Test Item Value Reference Range Interpretation Comments Activated Partial Thromboplast Time (test code = 64114-3) 27.1 23.8-35.5 [facility]entonProthrombin Dqim4216-04-64 17:00:00* Test Item Value Reference Range Interpretation Comments Prothrombin Time (test code = 5902-2) 12.2 11.9-14.5 [facility]entonProthromb Time International Ratio 2019-01-22 17:00:00* Test Item Value Reference Range Interpretation Comments Prothromb Time International Ratio (test code = 6301-6) 0.86 Oral Anticoagulant Therapy INR Values:1. Low Intensity Therapy 1.5 - 2.02 . Moderate Intensity Therapy 2.0 - 3.03. High Intensity Therapy(1) 2.5 - 3. 54. High Intensity Therapy(2) 3.0 - 4.05. Panic Value INR > 5.0 [facility]entonAct[facility] Partial Thromboplast Time 2019-01-22 17:00:00* Test Item Value Reference Range Interpretation Comments Activated Partial Thromboplast Time (test code = 19653-1) 27.1 23.8-35.5 [facility] Tomballodium Gszfb0266-80-50 16:59:00* Test Item Value Reference Range Interpretation Comments Sodium Level (test code = 2951-2) 133 136-145 L [facility]entonPotassium Vmgzw9907-16-32 16:59:00* Test Item Value Reference Range Interpretation Comments Potassium Level (test code = 2823-3) 3.9 3.5-5.1 [facility]entonChloride Mhrag7985-50-51 16:59:00* Test Item Value Reference Range Interpretation Comments Chloride Level (test code = 2075-0) 99 98-107 [facility]entonCarbon Dioxide Uvjvf8473-28-32 16:59:00* Test Item Value Reference Range Interpretation Comments Carbon Dioxide Level (test code = 2028-9) 25 22-29 [facility]entonAnion Jjc5677-36-90 16:59:00* Test Item Value Reference Range Interpretation Comments Anion Gap (test code = 53152-3) 12.9 8-16 [facility]entonBlood Urea Oujbgtga6124-36-49 16:59:00* Test Item Value Reference Range Interpretation Comments Blood Urea Nitrogen (test code = 3094-0) 20 7-26 [facility]entonCreatinine2019-05-08 16:59:00* Test Item Value Reference Range Interpretation Comments Creatinine (test code = 2160-0) 1.24 0.57-1.11 H [facility]entonBUN/Creatinine Xdfuh4292-17-39 16:59:00* Test Item Value Reference Range Interpretation Comments BUN/Creatinine Ratio (test code = 3097-3) 16 6-25 [facility]entonEstimat Glomerular Filtration Rate 2019-01-22 16:59:00* Test Item Value Reference Range Interpretation Comments Estimat Glomerular Filtration Rate (test code = 452032259) 46 >60 L Ranges were taken from the National Kidney Disease Education Program and the [facility] Kidney Foundation literature.Reference ranges:60 or greater: Sjrlho72-95 ( for 3 consecutive months): Chronic kidney disease 15 or less: Kidney failureTexas Health DentonGlucose Ckurd2722-44-29 16:59:00* Test Item Value Reference Range Interpretation Comments Glucose Level (test code = SUT8126) 484 74-118 HH Results repeated and called to GANESH ACOSTA at 1658 on 01/22/19 by JOVANA VÁSQUEZ. Read back and verified.[facility]entonCalcium Level 2019-01-22 16:59:00* Test Item Value Reference Range Interpretation Comments Calcium Level (test code = 86242-7) 9.7 8.4-10.2 [facility]entonTotal Abexltxwz7080-52-64 16:59:00* Test Item Value Reference Range Interpretation Comments Total Bilirubin (test code = 1975-2) 0.5 0.2-1.2 [facility] DentonAspartate Amino Transf (AST/SGOT) 2019-01-22 16:59:00* Test Item Value Reference Range Interpretation Comments Aspartate Amino Transf (AST/SGOT) (test code = Aspartate Amino Transf (AST/SGOT)) 41 5-34 H [facility] DentonAlanine Aminotransferase (ALT/SGPT) 2019-01-22 16:59:00* Test Item Value Reference Range Interpretation Comments Alanine Aminotransferase (ALT/SGPT) (test code = 1742-6) 48 0-55 [facility]Total Qtngwrw9342-36-28 16:59:00* Test Item Value Reference Range Interpretation Comments Total Protein (test code = 2885-2) 7.0 6.5-8.1 [facility]Albumin2019-05-08 16:59:00* Test Item Value Reference Range Interpretation Comments Albumin (test code = 1751-7) 3.5 3.5-5.0 [facility]Globulin2019-05-08 16:59:00* Test Item Value Reference Range Interpretation Comments Globulin (test code = 51114-8) 3.5 2.3-3.5 [facility]Albumin/Globulin Irlvf0227-39-04 16:59:00 * Test Item Value Reference Range Interpretation Comments Albumin/Globulin Ratio (test code = 1759-0) 1.0 0.8-2.0 [facility]entonAlkaline Dkvkogczjzn6200-37-59 16:59:00* Test Item Value Reference Range Interpretation Comments Alkaline Phosphatase (test code = 6768-6) 119 40-150 [facility]entonCreatine Jxukwk4453-90-05 16:59:00* Test Item Value Reference Range Interpretation Comments Creatine Kinase (test code = 2157-6) 114 29-168 [facility] Vbgtz0355-25-61 16:59:00* Test Item Value Reference Range Interpretation Comments Sodium Level (test code = 2951-2) 133 136-145 L [facility]Potassium Hlwue0549-16-98 16:59:00* Test Item Value Reference Range Interpretation Comments Potassium Level (test code = 2823-3) 3.9 3.5-5.1 [facility]entonChloride Djdbk5053-31-87 16:59:00* Test Item Value Reference Range Interpretation Comments Chloride Level (test code = 2075-0) 99 98-107 [facility]entonCarbon Dioxide Ffxht5040-68-94 16:59:00* Test Item Value Reference Range Interpretation Comments Carbon Dioxide Level (test code = 2028-9) 25 22-29 [facility]entonAnion Swe5542-27-58 16:59:00* Test Item Value Reference Range Interpretation Comments Anion Gap (test code = 31233-4) 12.9 8-16 [facility]Blood Urea Rsuducpf2067-96-12 16:59:00* Test Item Value Reference Range Interpretation Comments Blood Urea Nitrogen (test code = 3094-0) 20 7-26 [facility]Creatinine2019-05-08 16:59:00* Test Item Value Reference Range Interpretation Comments Creatinine (test code = 2160-0) 1.24 0.57-1.11 H [facility]BUN/Creatinine Bbqhe7976-99-86 16:59:00* Test Item Value Reference Range Interpretation Comments BUN/Creatinine Ratio (test code = 3097-3) 16 6-25 [facility]entonEstimat Glomerular Filtration Rate 2019-01-22 16:59:00* Test Item Value Reference Range Interpretation Comments Estimat Glomerular Filtration Rate (test code = 108800396) 46 >60 L Ranges were taken from the National Kidney Disease Education Program and the [facility] Kidney Foundation literature.Reference ranges:60 or greater: Yyetum03-43 ( for 3 consecutive months): Chronic kidney disease 15 or less: Kidney failureCHI [facility] BrownwoodGlucose Pjetc4432-63-75 16:59:00* Test Item Value Reference Range Interpretation Comments Glucose Level (test code = ORE0826) 484 74118 HH Results repeated and called to GANESH ACOSTA at 1658 on 01/22/19 by JOVANA VÁSQUEZ. Read back and verified.[facility]Calcium Level 2019-01-22 16:59:00* Test Item Value Reference Range Interpretation Comments Calcium Level (test code = 48102-9) 9.7 8.4-10.2 [facility]Total Tttyzdygl6810-46-23 16:59:00* Test Item Value Reference Range Interpretation Comments Total Bilirubin (test code = 1975-2) 0.5 0.2-1.2 [facility]entonAspartate Amino Transf (AST/SGOT) 2019-01-22 16:59:00* Test Item Value Reference Range Interpretation Comments Aspartate Amino Transf (AST/SGOT) (test code = Aspartate Amino Transf (AST/SGOT)) 41 5-34 H [facility]entonAlanine Aminotransferase (ALT/SGPT) 2019-01-22 16:59:00* Test Item Value Reference Range Interpretation Comments Alanine Aminotransferase (ALT/SGPT) (test code = 1742-6) 48 0-55 [facility]Total Wnbpntr2521-58-47 16:59:00* Test Item Value Reference Range Interpretation Comments Total Protein (test code = 2885-2) 7.0 6.5-8.1 [facility]Albumin2019-05-08 16:59:00* Test Item Value Reference Range Interpretation Comments Albumin (test code = 1751-7) 3.5 3.5-5.0 [facility]entonGlobulin2019-05-08 16:59:00* Test Item Value Reference Range Interpretation Comments Globulin (test code = 26772-2) 3.5 2.3-3.5 [facility]entonAlbumin/Globulin Iizul7769-33-72 16:59:00 * Test Item Value Reference Range Interpretation Comments Albumin/Globulin Ratio (test code = 1759-0) 1.0 0.8-2.0 [facility]entonAlkaline Wssqdcxacvu8263-19-94 16:59:00* Test Item Value Reference Range Interpretation Comments Alkaline Phosphatase (test code = 6768-6) 119 40-150 [facility]entonCreatine Upfpbl1622-77-72 16:59:00* Test Item Value Reference Range Interpretation Comments Creatine Kinase (test code = 2157-6) 114 29-168 [facility]entonWhite Blood Mtjfk4020-84-54 16:44:00* Test Item Value Reference Range Interpretation Comments White Blood Count (test code = 6690-2) 7.49 4.8-10.8 [facility]entonRed Blood Yvqje5924-66-89 16:44:00* Test Item Value Reference Range Interpretation Comments Red Blood Count (test code = 789-8) 5.12 3.6-5.1 H [facility]entonHemoglobin2019-05-08 16:44:00* Test Item Value Reference Range Interpretation Comments Hemoglobin (test code = 78442-0) 13.9 12.0-16.0 [facility]entonHematocrit2019-05-08 16:44:00* Test Item Value Reference Range Interpretation Comments Hematocrit (test code = 4544-3) 43.0 34.2-44.1 [facility]entonMean Corpuscular Wssxfr3302-38-23 16:44:00* Test Item Value Reference Range Interpretation Comments Mean Corpuscular Volume (test code = 787-2) 84.0 81-99 [facility]Mean Corpuscular Epdnnbtaop2645-61-75 16:44:00* Test Item Value Reference Range Interpretation Comments Mean Corpuscular Hemoglobin (test code = 785-6) 27.1 28-32 L [facility]Mean Corpuscular Hemoglobin Concent 2019-01-22 16:44:00* Test Item Value Reference Range Interpretation Comments Mean Corpuscular Hemoglobin Concent (test code = 786-4) 32.3 31-35 [facility]entonRed Cell Distribution Wbsgf6382-52-38 16:44:00* Test Item Value Reference Range Interpretation Comments Red Cell Distribution Width (test code = 25638-8) 13.2 11.7 -14.4 [facility]entonPlatelet Yjnyz9872-26-45 16:44:00* Test Item Value Reference Range Interpretation Comments Platelet Count (test code = 777-3) 210 140-360 [facility]entonNeutrophils (%) (Auto)2019-01-22 16:44:00 * Test Item Value Reference Range Interpretation Comments Neutrophils (%) (Auto) (test code = 71754-9) 65.5 38.7-80.0 [facility]entonLymphocytes (%) (Auto)2019-01-22 16:44:00 * Test Item Value Reference Range Interpretation Comments Lymphocytes (%) (Auto) (test code = 736-9) 21.2 18.0-39.1 [facility]entonMonocytes (%) (Auto)2019-01-22 16:44:00* Test Item Value Reference Range Interpretation Comments Monocytes (%) (Auto) (test code = 5905-5) 10.4 4.4-11.3 [facility]entonEosinophils (%) (Auto)2019-01-22 16:44:00 * Test Item Value Reference Range Interpretation Comments Eosinophils (%) (Auto) (test code = 713-8) 1.5 0.0-6.0 [facility]entonBasophils (%) (Auto)2019-01-22 16:44:00* Test Item Value Reference Range Interpretation Comments Basophils (%) (Auto) (test code = 706-2) 1.1 0.0-1.0 H [facility]entonIM GRANULOCYTES %2019-01-22 16:44:00* Test Item Value Reference Range Interpretation Comments IM GRANULOCYTES % (test code = IM GRANULOCYTES %) 0.3 0.0- 1.0 [facility]entonNeutrophils # (Auto)2019-01-22 16:44:00* Test Item Value Reference Range Interpretation Comments Neutrophils # (Auto) (test code = 751-8) 4.9 2.1-6.9 [facility]entonLymphocytes # (Auto)2019-01-22 16:44:00* Test Item Value Reference Range Interpretation Comments Lymphocytes # (Auto) (test code = 27908-7) 1.6 1.0-3.2 [facility]entonMonocytes # (Auto)2019-01-22 16:44:00* Test Item Value Reference Range Interpretation Comments Monocytes # (Auto) (test code = 742-7) 0.8 0.2-0.8 [facility]entonEosinophils # (Auto)2019-01-22 16:44:00* Test Item Value Reference Range Interpretation Comments Eosinophils # (Auto) (test code = 711-2) 0.1 0.0-0.4 [facility]Basophils # (Auto)2019-01-22 16:44:00* Test Item Value Reference Range Interpretation Comments Basophils # (Auto) (test code = 704-7) 0.1 0.0-0.1 [facility]entonAbsolute Immature Granulocyte (auto 2019-01-22 16:44:00* Test Item Value Reference Range Interpretation Comments Absolute Immature Granulocyte (auto (marisol t code = Absolute Immature Granulocyte (auto) 0.02 0-0.1 [facility]entonWhite Blood Laxjy0391-41-09 16:44:00* Test Item Value Reference Range Interpretation Comments White Blood Count (test code = 6690-2) 7.49 4.8-10.8 [facility]entonRed Blood Mngol1182-97-94 16:44:00* Test Item Value Reference Range Interpretation Comments Red Blood Count (test code = 789-8) 5.12 3.6-5.1 H [facility]entonHemoglobin2019-05-08 16:44:00* Test Item Value Reference Range Interpretation Comments Hemoglobin (test code = 36285-5) 13.9 12.0-16.0 [facility]entonHematocrit2019-05-08 16:44:00* Test Item Value Reference Range Interpretation Comments Hematocrit (test code = 4544-3) 43.0 34.2-44.1 [facility]Mean Corpuscular Ukxojw3829-71-47 16:44:00* Test Item Value Reference Range Interpretation Comments Mean Corpuscular Volume (test code = 787-2) 84.0 81-99 [facility]Mean Corpuscular Kqnyjhoiiu4354-81-76 16:44:00* Test Item Value Reference Range Interpretation Comments Mean Corpuscular Hemoglobin (test code = 785-6) 27.1 28-32 L [facility]Mean Corpuscular Hemoglobin Concent 2019-01-22 16:44:00* Test Item Value Reference Range Interpretation Comments Mean Corpuscular Hemoglobin Concent (test code = 786-4) 32.3 31-35 [facility]entonRed Cell Distribution Wgemf1314-96-87 16:44:00* Test Item Value Reference Range Interpretation Comments Red Cell Distribution Width (test code = 45399-5) 13.2 11.7 -14.4 [facility]entonPlatelet Kwviy5128-32-36 16:44:00* Test Item Value Reference Range Interpretation Comments Platelet Count (test code = 777-3) 210 140-360 [facility]entonNeutrophils (%) (Auto)2019-01-22 16:44:00 * Test Item Value Reference Range Interpretation Comments Neutrophils (%) (Auto) (test code = 06941-8) 65.5 38.7-80.0 [facility]entonLymphocytes (%) (Auto)2019-01-22 16:44:00 * Test Item Value Reference Range Interpretation Comments Lymphocytes (%) (Auto) (test code = 736-9) 21.2 18.0-39.1 [facility]entonMonocytes (%) (Auto)2019-01-22 16:44:00* Test Item Value Reference Range Interpretation Comments Monocytes (%) (Auto) (test code = 5905-5) 10.4 4.4-11.3 [facility]entonEosinophils (%) (Auto)2019-01-22 16:44:00 * Test Item Value Reference Range Interpretation Comments Eosinophils (%) (Auto) (test code = 713-8) 1.5 0.0-6.0 [facility]entonBasophils (%) (Auto)2019-01-22 16:44:00* Test Item Value Reference Range Interpretation Comments Basophils (%) (Auto) (test code = 706-2) 1.1 0.0-1.0 H [facility]entonIM GRANULOCYTES %2019-01-22 16:44:00* Test Item Value Reference Range Interpretation Comments IM GRANULOCYTES % (test code = IM GRANULOCYTES %) 0.3 0.0- 1.0 [facility]entonNeutrophils # (Auto)2019-01-22 16:44:00* Test Item Value Reference Range Interpretation Comments Neutrophils # (Auto) (test code = 751-8) 4.9 2.1-6.9 [facility]entonLymphocytes # (Auto)2019-01-22 16:44:00* Test Item Value Reference Range Interpretation Comments Lymphocytes # (Auto) (test code = 19315-6) 1.6 1.0-3.2 [facility]entonMonocytes # (Auto)2019-01-22 16:44:00* Test Item Value Reference Range Interpretation Comments Monocytes # (Auto) (test code = 742-7) 0.8 0.2-0.8 [facility]entonEosinophils # (Auto)2019-01-22 16:44:00* Test Item Value Reference Range Interpretation Comments Eosinophils # (Auto) (test code = 711-2) 0.1 0.0-0.4 [facility]entonBasophils # (Auto)2019-01-22 16:44:00* Test Item Value Reference Range Interpretation Comments Basophils # (Auto) (test code = 704-7) 0.1 0.0-0.1 [facility]entonAbsolute Immature Granulocyte (auto 2019-01-22 16:44:00* Test Item Value Reference Range Interpretation Comments Absolute Immature Granulocyte (auto (marisol t code = Absolute Immature Granulocyte (auto) 0.02 0-0.1 [facility]CT [facility]PELVIS [id number] 00:06:00 [place] [address] Patient Name: IRENA VILLEGAS MR #: [id number] : 1970 Age/Sex: 48/F Req #: [id number] Adm Physician: Ordered by: SHERIN SALDAÑA MD Report #: [id number] Location: [facility] oom/Bed: Procedure: [id number] CT/CT ABDOMEN/PELVIS WO Exam Date: Exam Time: [...] reformations were obtained. Routine protocol was per formed. IV CONTRAST: None. ORAL CONTRAST: Gastrogra fin [...] 02/23/187 COPY TO: SHERIN SALDAÑA MD Urine [id number] 23:00:00* Test Item Value Reference Range Interpretation Comments Urine WBC (test code = 5821-4) 0-5 0-5 [facility] [id number] 23:00:00* Test Item Value Reference Range Interpretation Comments Urine RBC (test code = 17082-8) 0-5 0-5 [facility]entonUrine Nhpynmfc3121-51-71 23:00:00* Test Item Value Reference Range Interpretation Comments Urine Bacteria (test code = 61009-2) FEW NONE [facility]entonUrine Epithelial Whlqo7051-94-24 23:00:00 * Test Item Value Reference Range Interpretation Comments Urine Epithelial Cells (test code = 98679-6) RARE NONE FEW CLUE CELLSHCA [facility] Tomballodium Ftlfh8702-57-32 22:49:00* Test Item Value Reference Range Interpretation Comments Sodium Level (test code = 2951-2) 133 136-145 L [facility]entonPotassium Oelyx3460-27-85 22:49:00* Test Item Value Reference Range Interpretation Comments Potassium Level (test code = 2823-3) 3.8 3.5-5.1 [facility]entonChloride Mbxum5161-63-59 22:49:00* Test Item Value Reference Range Interpretation Comments Chloride Level (test code = 2075-0) 102 98-107 [facility]entonCarbon Dioxide Qbuot1818-18-00 22:49:00* Test Item Value Reference Range Interpretation Comments Carbon Dioxide Level (test code = 2028-9) 23 22-29 [facility]entonAnion Oxu1959-77-33 22:49:00* Test Item Value Reference Range Interpretation Comments Anion Gap (test code = 43595-2) 11.8 8-16 [facility]entonBlood Urea Jfefoqbk2853-85-34 22:49:00* Test Item Value Reference Range Interpretation Comments Blood Urea Nitrogen (test code = 3094-0) 17 7-26 [facility]entonCreatinine2018-06-08 22:49:00* Test Item Value Reference Range Interpretation Comments Creatinine (test code = 2160-0) 1.18 0.57-1.11 H [facility]entonBUN/Creatinine Kprhu0800-32-19 22:49:00* Test Item Value Reference Range Interpretation Comments BUN/Creatinine Ratio (test code = 3097-3) 14 6-25 [facility]entonEstimat Glomerular Filtration Rate 2018-02-22 22:49:00* Test Item Value Reference Range Interpretation Comments Estimat Glomerular Filtration Rate (test code = 20565-6) 49 >60 L Ranges were taken from the National Kidney Disease Education Program and the [facility] literature.Reference ranges:60 or greater: Uyjmgv72-55 ( for 3 consecutive months): Chronic kidney disease 15 or less: Kidney failureTexas Health DentonGlucose Artoz2041-91-99 22:49:00* Test Item Value Reference Range Interpretation Comments Glucose Level (test code = WCN8831) 283 74-118 H [facility]entonCalcium Otlti7397-44-84 22:49:00* Test Item Value Reference Range Interpretation Comments Calcium Level (test code = 38599-2) 9.8 8.4-10.2 [facility]Total Lhsrqpnrj9947-47-64 22:49:00* Test Item Value Reference Range Interpretation Comments Total Bilirubin (test code = 1975-2) 0.6 0.2-1.2 [facility] DentonAspartate Amino Transf (AST/SGOT) 2018-02-22 22:49:00* Test Item Value Reference Range Interpretation Comments Aspartate Amino Transf (AST/SGOT) (test code = Aspartate Amino Transf (AST/SGOT)) 33 5-34 [facility]entonAlanine Aminotransferase (ALT/SGPT) 2018-02-22 22:49:00* Test Item Value Reference Range Interpretation Comments Alanine Aminotransferase (ALT/SGPT) (test code = 1742-6) 36 0-55 [facility]Total Lmmpkut7148-84-82 22:49:00* Test Item Value Reference Range Interpretation Comments Total Protein (test code = 2885-2) 7.9 6.5-8.1 [facility]entonAlbumin2018-06-08 22:49:00* Test Item Value Reference Range Interpretation Comments Albumin (test code = 1751-7) 4.1 3.5-5.0 [facility]entonGlobulin2018-06-08 22:49:00* Test Item Value Reference Range Interpretation Comments Globulin (test code = 15477-3) 3.8 2.3-3.5 H [facility]entonAlbumin/Globulin Igxix8878-04-14 22:49:00 * Test Item Value Reference Range Interpretation Comments Albumin/Globulin Ratio (test code = 1759-0) 1.1 0.8-2.0 [facility]entonAlkaline Cjefhjmpzmi2986-99-67 22:49:00* Test Item Value Reference Range Interpretation Comments Alkaline Phosphatase (test code = 6768-6) 111 40-150 [facility]entonAmylase Ifthn2148-92-40 22:49:00* Test Item Value Reference Range Interpretation Comments Amylase Level (test code = 1798-8) 70 25-125 [facility]entonLipase2018-06-08 22:49:00* Test Item Value Reference Range Interpretation Comments Lipase (test code = 3040-3) 81 8-78 H [facility]entonUrine Rmqkk6163-81-16 22:36:00* Test Item Value Reference Range Interpretation Comments Urine Color (test code = 5778-6) YELLOW YELLOW [facility]Urine Eynzxzh9925-17-53 22:36:00* Test Item Value Reference Range Interpretation Comments Urine Clarity (test code = 44759-0) SL CLOUDY CLEAR [facility]entonUrine Specific Wbkqozk2291-97-69 22:36:00 * Test Item Value Reference Range Interpretation Comments Urine Specific [place] (test code = 5811-5) 1.020 1.010-1.02 5 [facility]entonUrine vX2908-21-00 22:36:00* Test Item Value Reference Range Interpretation Comments Urine pH (test code = 85661-9) 6 5-7 [facility] Leukocyte Ubnjehcr4348-39-54 22:36:00* Test Item Value Reference Range Interpretation Comments Urine Leukocyte Esterase (test code = 5799-2) NEGATIVE NEGATIVE [facility]entonUrine Pembdfb0808-43-53 22:36:00* Test Item Value Reference Range Interpretation Comments Urine Nitrite (test code = 56604-1) NEGATIVE NEGATIVE [facility]entonU[facility] Ezrwwbi5610-95-31 22:36:00* Test Item Value Reference Range Interpretation Comments Urine Protein (test code = 5804-0) TRACE NEGATIVE H [facility]entonUrine Glucose (UA)2018-02-22 22:36:00* Test Item Value Reference Range Interpretation Comments Urine Glucose (UA) (test code = 2349-9) 3+ NEGATIVE H [facility]entonUrine Tfhigjx9649-39-90 22:36:00* Test Item Value Reference Range Interpretation Comments Urine Ketones (test code = 68174-5) NEGATIVE NEGATIVE [facility]entonUrine Hkabtdzgstuy4071-11-60 22:36:00* Test Item Value Reference Range Interpretation Comments Urine Urobilinogen (test code = 35741-2) 0.2 0.2-1 [facility]entonUrine Uhvryikcz1700-93-80 22:36:00* Test Item Value Reference Range Interpretation Comments Urine Bilirubin (test code = 1978-6) NEGATIVE NEGATIVE [facility]entonUrine Oeljy9603-36-17 22:36:00* Test Item Value Reference Range Interpretation Comments Urine Blood (test code = 62263-5) NEGATIVE NEGATIVE [facility]entonUrine Ygep3434-74-10 22:36:00* Test Item Value Reference Range Interpretation Comments Urine Test (test code = 2106-3) NEGATIVE NEGATIVE [facility]entonWhite Blood Rekhs1347-04-64 22:31:00* Test Item Value Reference Range Interpretation Comments White Blood Count (test code = 6690-2) 7.38 4.8-10.8 [facility]entonRed Blood Lrwvv6021-33-94 22:31:00* Test Item Value Reference Range Interpretation Comments Red Blood Count (test code = 789-8) 5.28 3.6-5.1 H [facility]entonHemoglobin2018-06-08 22:31:00* Test Item Value Reference Range Interpretation Comments Hemoglobin (test code = 68961-5) 14.3 12.0-16.0 [facility]entonHematocrit2018-06-08 22:31:00* Test Item Value Reference Range Interpretation Comments Hematocrit (test code = 4544-3) 43.9 34.2-44.1 [facility]Mean Corpuscular Gcyivl8001-10-20 22:31:00* Test Item Value Reference Range Interpretation Comments Mean Corpuscular Volume (test code = 787-2) 83.1 81-99 [facility]Mean Corpuscular Ziirefijga2557-87-60 22:31:00* Test Item Value Reference Range Interpretation Comments Mean Corpuscular Hemoglobin (test code = 785-6) 27.1 28-32 L [facility]Mean Corpuscular Hemoglobin Concent 2018-02-22 22:31:00* Test Item Value Reference Range Interpretation Comments Mean Corpuscular Hemoglobin Concent (test code = 786-4) 32.6 31-35 [facility]entonRed Cell Distribution Vmhos6227-93-49 22:31:00* Test Item Value Reference Range Interpretation Comments Red Cell Distribution Width (test code = 00446-5) 13.7 11.7 -14.4 [facility]entonPlatelet Kgizy1011-38-36 22:31:00* Test Item Value Reference Range Interpretation Comments Platelet Count (test code = 777-3) 214 140-360 [facility]entonNeutrophils (%) (Auto)2018-02-22 22:31:00 * Test Item Value Reference Range Interpretation Comments Neutrophils (%) (Auto) (test code = 72412-4) 55.5 38.7-80.0 [facility]entonLymphocytes (%) (Auto)2018-02-22 22:31:00 * Test Item Value Reference Range Interpretation Comments Lymphocytes (%) (Auto) (test code = 736-9) 29.4 18.0-39.1 [facility]entonMonocytes (%) (Auto)2018-02-22 22:31:00* Test Item Value Reference Range Interpretation Comments Monocytes (%) (Auto) (test code = 5905-5) 11.0 4.4-11.3 [facility]entonEosinophils (%) (Auto)2018-02-22 22:31:00 * Test Item Value Reference Range Interpretation Comments Eosinophils (%) (Auto) (test code = 713-8) 2.8 0.0-6.0 [facility]entonBasophils (%) (Auto)2018-02-22 22:31:00* Test Item Value Reference Range Interpretation Comments Basophils (%) (Auto) (test code = 706-2) 1.2 0.0-1.0 H [facility]entonIM GRANULOCYTES %2018-02-22 22:31:00* Test Item Value Reference Range Interpretation Comments IM GRANULOCYTES % (test code = IM GRANULOCYTES %) 0.1 0.0- 1.0 [facility]entonNeutrophils # (Auto)2018-02-22 22:31:00* Test Item Value Reference Range Interpretation Comments Neutrophils # (Auto) (test code = 751-8) 4.1 2.1-6.9 [facility]entonLymphocytes # (Auto)2018-02-22 22:31:00* Test Item Value Reference Range Interpretation Comments Lymphocytes # (Auto) (test code = 66931-7) 2.2 1.0-3.2 [facility]entonMonocytes # (Auto)2018-02-22 22:31:00* Test Item Value Reference Range Interpretation Comments Monocytes # (Auto) (test code = 742-7) 0.8 0.2-0.8 [facility]entonEosinophils # (Auto)2018-02-22 22:31:00* Test Item Value Reference Range Interpretation Comments Eosinophils # (Auto) (test code = 711-2) 0.2 0.0-0.4 [facility]Basophils # (Auto)2018-02-22 22:31:00* Test Item Value Reference Range Interpretation Comments Basophils # (Auto) (test code = 704-7) 0.1 0.0-0.1 [facility]entonAbsolute Immature Granulocyte (auto 2018-02-22 22:31:00* Test Item Value Reference Range Interpretation Comments Absolute Immature Granulocyte (auto (marisol t code = Absolute Immature Granulocyte (auto) 0.01 0-0.1 [facility]
--- NOTE | 2020-05-09 19:48 | Emergency Department Note ---
History of Present Illnes History of Present Illness Chief Complaint: Neurological History of Present Illness This is a 50 year old female arrived to the ED with left sided facial droop. Historian: Friend Severity: mild Onset quality: sudden Duration (how long): hour(s) Timing of current episode: constant Past Medical/Family History Physician Review I have reviewed the patient's past medical and family history. Any updates have been documented here. Past Medical History Past Medical History: Hypertension, Diabetes, Hyperlipedemia Other Medical History: "geller of heart" PERIPHERAL NEUROPATHY Past Surgical History: Hysterectomy, PCI, Back Surgery Other Surgery: BACK SURGERY CARPAL TUNNEL HEART PROCEDURE TO FIX IRREGULAR HEARTBEAT. DOESN'T THINK IT'S ABLATION ablasion for svt? Other Last Tetanus: UNK Review of Systems Review of Systems Constitutional: Reports no symptoms EENTM: Reports no symptoms Cardiovascular: Reports no symptoms Respiratory: Reports no symptoms Gastrointestinal: Reports no symptoms Genitourinary: Reports no symptoms Musculoskeletal: Reports no symptoms Integumentary: Reports no symptoms Neurological: Reports as per HPI Psychological: Reports no symptoms Endocrine: Reports no symptoms Hematological/Lymphatic: Reports no symptoms Physical Exam Related Data Allergies: Coded Allergies: promethazine (Verified Allergy, Mild, ANXIETY, 05/07/20) Vital signs reviewed: Yes Physical Exam CONSTITUTIONAL Constitutional: Present well-developed, Present well-nourished HENT HENT: Present normocephalic, Present atraumatic, Present oropharynx clear/moist, Present nose normal HENT L/R: Present left ext ear normal, Present right ext ear normal EYES Eyes: Reports PERRL, Reports conjunctivae normal NECK Neck: Present ROM normal PULMONARY Pulmonary: Present effort normal, Present breath sounds normal CARDIOVASCULAR Cardiovascular: Present regular rhythm, Present heart sounds normal, Present capillary refill normal, Present normal rate GASTROINTESTINAL Abdominal: Present soft, Present nontender, Present bowel sounds normal GENITOURINARY Genitourinary: Present exam deferred SKIN Skin: Present warm, Present dry MUSCULOSKELETAL Musculoskeletal: Present ROM normal NEUROLOGICAL Neurological: Present alert, Present oriented x 3, Present no gross motor or sensory deficits, Present sensory deficit, Present weakness (left-sided facial droop noted that involves eyebrow, patient is unable to lift left eyebrow, patient with a lid lag on same side) PSYCHOLOGICAL Psychological: Present mood/affect normal, Present judgement normal Assessment & Plan Medical Decision Making [facility] 50-year-old female arrives to the ED with left-sided facial droop and weakness that involved her forehead as well. Patient has no other neurovascular deficits. Patient with no pronator drift, otherwise 5 out of 5 motor strength in bilateral upper extremities. There are no concerns of a stroke at this time. 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 Patient with significant diabetes, did not want to be on steroids, patient discharged on acyclovir and artificial drops. Instructions on eye care given. Patient stable for discharge home. Assessment & Plan Final Impression: (1) Brown's palsy Depart Disposition: HOME, SELF-prison Meds Active Scripts Metoprolol Tartrate (LOPRESSOR) 25 Mg Tab, 25 MG PO Q12H, #180 Prov:AMERICA GARCIA MD 07/29/15 Reported Medications Bifidobacterium Infantis (ALIGN) 4 Mg Capsule, 4 MG PO DAILY 05/07/20 Dicyclomine Hcl (DICYCLOMINE HCL) 20 Mg Tablet, 20 MG PO BID, TAB 05/07/20 Hydrochlorothiazide (HYDROCHLOROTHIAZIDE) 25 Mg Tablet, 25 MG PO DAILY, #30 TAB 05/07/20 Semaglutide (Ozempic) 0.25 Mg/0.2 Ml Pen.injctr, 0.5 MG SC Q WEEKLY, UNIT 03/12/20 Amlodipine Besylate (AMLODIPINE BESYLATE) 5 Mg Tablet, MG PO DAILY, #30 TAB 08/31/19 Discontinued Reported Medications Empagliflozin/Metformin HCl (Synjardy 12.5-1,000 mg Tablet) 1 Each Tablet, PO BID 03/12/20 Discontinued Scripts Chlorthalidone (CHLORTHALIDONE) 25 Mg Tablet, 25 MG PO DAILY for 30 Days Prov:ANGELINA DURAN NP 09/01/19 ALIRIO ALEXANDRA DO May 09, 2020 19:48
== END 2020-05-09 19:30 | disposition home or self-care (01) ==
LOC: ER 19:16
DX: G51.0 Bell's palsy (principal); I10 Essential (primary) hypertension; E11.42 Type 2 diabetes mellitus with diabetic polyneuropathy; E78.5 Hyperlipidemia, unspecified
CPT/HCPCS: 99282

== ENCOUNTER → 2020-05-26 | Day surgery (SDC) | payer BC, OTHER ==
[~2020-05-26] MED LIST changes: +CITALOPRAM HBR20 MG PO; +FENTANYL CITRATE/PF 100MCG/2 ML INJ ONE; +LIDOCAINE HCL 2% LOCAL INJ 5 ML SDV VIAL INJ ONE; +METHOCARBAMOL750 MG PO; +METOCLOPRAMIDE HCL 10 MG/2ML VIAL ONE; +MIDAZOLAM HCL 2 MG/2 ML VIAL ONE; +MOBIC7.5 MG PO; +PROPOFOL IV EMULSION 10 MG/ML 20 ML VIAL ONE
[2020-05-26 16:20] VITALS: BP 136/89
--- NOTE | 2020-05-26 16:36 | Operative Report ---
DATE OF PROCEDURE: 05/26/2020 SURGEON: Vladimir Gregg MD PROCEDURE: EGD note. INDICATIONS FOR PROCEDURE: Bloating, nausea, diarrhea. MEDICATIONS: The patient was done under MAC, please see anesthesiologist's note. PROCEDURE IN DETAIL: With the patient in left lateral decubitus position, a flexible fiberoptic Olympus gastroscope was introduced into the esophagus under direct visualization without any difficulty. There was some patchy erythema noted in distal esophagus. A minute tongue of velvety red mucosa was noted to extend proximally from the GE junction and biopsies were obtained to rule out sprue. The scope was then advanced with ease into the stomach, and mucosa overlying the antrum and the body revealed some diffuse erythema low-grade to moderate edema, and biopsies were obtained, and sent to stain for H. pylori. Pylorus was of normal contour and shape, it was intubated with ease and the scope, it was advanced all the way to the second portion of the duodenum. Biopsies were obtained from the proximal second portion and the duodenal bulb to rule out sprue. The scope was then withdrawn back into the stomach and retroflexed, and moderate amount of retained undigested food, that was retained in the stomach, precluded the visualization partially of the proximal body and some of the fundus. The scope was then straightened out, it was subsequently withdrawn. The patient tolerated the procedure well. IMPRESSION: 1. Distal esophagitis, mild. 2. Rule out Chan esophagus. 3. Gastritis, biopsied, biopsies sent to stain for H. pylori. 4. Gastroparesis with moderate amount of retained undigested food in stomach, precluding visualization of proximal body and some of the fundus. 5. Rule out sprue. PLAN: 1. Follow up histology. 2. Initiate Protonix 40 mg one p.o. q.a.m. a.c. Vladimir Gregg MD [facility] [place]/MODL /[id number] cc: Norm Dockery DO
== END | disposition home or self-care (01) ==
LOC: OR 11:40
PROVIDERS: ATTEND Internal Medicine Gastroenterology
DX: K29.70 Gastritis, unspecified, without bleeding (principal); K31.84 Gastroparesis; K20.9 Esophagitis, unspecified; K21.9 Gastro-esophageal reflux disease without esophagitis; K22.8 Other specified diseases of esophagus; Z86.010 Personal history of colon polyps; R19.7 Diarrhea, unspecified; E11.9 Type 2 diabetes mellitus without complications; I10 Essential (primary) hypertension; Z88.8 Allergy status to other drugs, medicaments and biological substances; Z01.812 Encounter for preprocedural laboratory examination; Z11.59 Encounter for screening for other viral diseases
CPT/HCPCS: 36415; 43239; 82948; J2001; J2250; J2704; J2765; J3010; U0002

== ENCOUNTER 2020-10-20 13:35 | Emergency (ER) | payer BC, OTHER ==
[~2020-10-20] VITALS: Ht 154.9 cm; Wt 77.6 kg
[~2020-10-20 13:35] MED LIST changes: -FENTANYL CITRATE/PF 100MCG/2 ML INJ ONE; -LIDOCAINE HCL 2% LOCAL INJ 5 ML SDV VIAL INJ ONE; -METOCLOPRAMIDE HCL 10 MG/2ML VIAL ONE; -MIDAZOLAM HCL 2 MG/2 ML VIAL ONE; -PROPOFOL IV EMULSION 10 MG/ML 20 ML VIAL ONE
[2020-10-20] MEDS ORDERED: HYDRALAZINE HCL 20 MG/ML VIAL IV STA ×2 (14:15→15:51)
[2020-10-20 14:30] LABS: BASOPHILS # (AUTO) 0.1 (0.0-0.1); BASOPHILS % 0.9 % (0.0-1.0); EOSINOPHILS # (AUTO) 0.2 (0.0-0.4); EOSINOPHILS % 3.5 % (0.0-6.0); HEMATOCRIT 44.5 % (34.2-44.1); HEMOGLOBIN 13.7 g/dL (12.0-16.0); LYMPHOCYTES # (AUTO) 1.3 (1.0-3.2); MEAN CORPUSCULAR HEMOGLOBIN 26.1 pg (28-32); MEAN CORPUSCULAR HGB CONC 30.8 g/dL (31-35); MEAN CORPUSCULAR VOLUME 84.9 fL (81-99); MONOCYTES # (AUTO) 0.5 (0.2-0.8); MONOCYTES % 9.8 % (4.4-11.3); NEUTROPHILS # (AUTO) 3.4 (2.1-6.9); NEUTROPHILS % 61.4 % (38.7-80.0); PLATELET COUNT 201 x10e3/uL (140-360); RED BLOOD COUNT 5.24 x10e6/uL (3.6-5.1); RED CELL DISTRIBUTION WIDTH 13.4 % (11.7-14.4)
[2020-10-20 14:33] LABS: INR 0.86; PROTHROMBIN TIME 12.2 seconds (11.9-14.5)
[2020-10-20 14:34] LABS: PARTIAL THROMBOPLASTIN TIME 28.6 seconds (23.8-35.5)
[2020-10-20 14:42] LABS: ALANINE AMINOTRANSFERASE 20 IU/L (0-55); ALBUMIN 3.4 g/dL (3.5-5.0); ALBUMIN/GLOBULIN RATIO 0.9 (0.8-2.0); ALKALINE PHOSPHATASE 109 IU/L (40-150); ANION GAP 15.6 mmol/L (8-16); BLOOD UREA NITROGEN 27 mg/dL (7-26); BUN/CREATININE RATIO 25 (6-25); CALCIUM 8.6 mg/dL (8.4-10.2); CARBON DIOXIDE 25 mmol/L (22-29); CHLORIDE 101 mmol/L (98-107); CREATINE KINASE 69 IU/L (29-168); CREATININE, SERUM 1.07 mg/dL (0.57-1.11); EST GLOMERULAR FILTRATION RATE 54 ML/MIN (60-); GLUCOSE 357 mg/dL (74-118); POTASSIUM 3.6 mmol/L (3.5-5.1); SODIUM 138 mmol/L (136-145)
[2020-10-20] MEDS ORDERED: CLONIDINE HCL 0.1 MG TAB PO ONE (16:00)
[2020-10-20] MEDS ORDERED: INSULIN REGULAR, HUMAN 100 UNIT/1 ML 3ML VIAL IV ONE (16:30)
[2020-10-20] MEDS ORDERED: SODIUM CHLORIDE 0.9% 1000ML 1,000 ML IV ONE (16:30)
[2020-10-20] MEDS ORDERED: LORAZEPAM INJ 2 MG/ML VIAL IV ONE (16:30)
[2020-10-20] MEDS ORDERED: ENALAPRILAT IV INJ 1.25 MG/ML VIAL IV STA (17:11)
== END 2020-10-20 20:06 | disposition home or self-care (01) ==
LOC: ER 14:17
DX: E11.65 Type 2 diabetes mellitus with hyperglycemia (principal); I10 Essential (primary) hypertension; R94.31 Abnormal electrocardiogram [ECG] [EKG]; R51.9 Headache, unspecified; E78.5 Hyperlipidemia, unspecified
CPT/HCPCS: 36415; 70450; 71045; 80053; 82550; 82553; 84484; 85025; 85610; 85730; 93005; 99284; J0360; J1817; J2060; J7030

== ENCOUNTER 2020-11-23 23:05 | Emergency (ER) | payer OTHER ==
[~2020-11-23] VITALS: Ht 154.9 cm; Wt 77.6 kg
[2020-11-23] MEDS ORDERED: CLONIDINE HCL 0.2 MG TAB PO ONE (23:15)
[2020-11-23] MEDS ORDERED: CLONIDINE HCL 0.2 MG TAB ONE (23:19)
== END 2020-11-24 00:15 | disposition home or self-care (01) ==
LOC: ER 23:10
DX: I10 Essential (primary) hypertension (principal); R94.31 Abnormal electrocardiogram [ECG] [EKG]; R51.9 Headache, unspecified; E11.42 Type 2 diabetes mellitus with diabetic polyneuropathy; E78.5 Hyperlipidemia, unspecified
CPT/HCPCS: 93005; 99283

== ENCOUNTER → 2020-12-13 | Day surgery (SDC) | payer OTHER ==
[2020-12-10 14:35] LABS: BASOPHILS # (AUTO) 0.1 (0.0-0.1); BASOPHILS % 1.3 % (0.0-1.0); EOSINOPHILS # (AUTO) 0.3 (0.0-0.4); EOSINOPHILS % 4.8 % (0.0-6.0); HEMATOCRIT 42.3 % (34.2-44.1); HEMOGLOBIN 13.2 g/dL (12.0-16.0); LYMPHOCYTES # (AUTO) 1.3 (1.0-3.2); LYMPHOCYTES % 25.5 % (18.0-39.1); MEAN CORPUSCULAR HEMOGLOBIN 26.3 pg (28-32); MEAN CORPUSCULAR HGB CONC 31.2 g/dL (31-35); MEAN CORPUSCULAR VOLUME 84.4 fL (81-99); MONOCYTES # (AUTO) 0.7 (0.2-0.8); NEUTROPHILS # (AUTO) 2.9 (2.1-6.9); NEUTROPHILS % 55.2 % (38.7-80.0); PLATELET COUNT 168 x10e3/uL (140-360); RED BLOOD COUNT 5.01 x10e6/uL (3.6-5.1); RED CELL DISTRIBUTION WIDTH 14.4 % (11.7-14.4)
[~2020-12-13] MED LIST changes: +FENTANYL CITRATE/PF 100MCG/2 ML INJ ONE; +MIDAZOLAM HCL 2 MG/2 ML VIAL ONE; +PANTOPRAZOLE 40 MG 10ML VIAL ONE; +PROPOFOL IV EMULSION 10 MG/ML 20 ML VIAL ONE
[2020-12-13 09:25] VITALS: BP 166/79
== END | disposition home or self-care (01) ==
LOC: OR 06:15
PROVIDERS: ATTEND Internal Medicine Gastroenterology
DX: K29.60 Other gastritis without bleeding (principal); K26.9 Duodenal ulcer, unspecified as acute or chronic, without hemorrhage or perforation; K21.00 Gastro-esophageal reflux disease with esophagitis, without bleeding; K22.8 Other specified diseases of esophagus; K31.84 Gastroparesis; Z86.010 Personal history of colon polyps; R19.7 Diarrhea, unspecified; I10 Essential (primary) hypertension; E11.9 Type 2 diabetes mellitus without complications; Z88.8 Allergy status to other drugs, medicaments and biological substances; Z01.812 Encounter for preprocedural laboratory examination; Z20.822 Contact with and (suspected) exposure to COVID-19; Z79.84 Long term (current) use of oral hypoglycemic drugs; Z68.38 Body mass index [BMI] 38.0-38.9, adult
CPT/HCPCS: 36415 ×2; 43239; 82948; 85025; C9113; J2250; J2704; J3010; U0002

== ENCOUNTER → 2020-12-15 | Outpatient (CLI) | payer OTHER ==
[~2020-12-15] MED LIST changes: -FENTANYL CITRATE/PF 100MCG/2 ML INJ ONE; -MIDAZOLAM HCL 2 MG/2 ML VIAL ONE; -PANTOPRAZOLE 40 MG 10ML VIAL ONE; -PROPOFOL IV EMULSION 10 MG/ML 20 ML VIAL ONE
== END ==
LOC: NM 13:24
PROVIDERS: ATTEND Internal Medicine Gastroenterology
DX: R10.10 Upper abdominal pain, unspecified (principal); R19.7 Diarrhea, unspecified; K81.1 Chronic cholecystitis; K82.8 Other specified diseases of gallbladder
CPT/HCPCS: 78227; A9537

== ENCOUNTER → 2021-01-06 | Day surgery (SDC) | payer OTHER ==
[2021-01-03 11:23] LABS: BASOPHILS # (AUTO) 0.1 (0.0-0.1); BASOPHILS % 1.5 % (0.0-1.0); EOSINOPHILS # (AUTO) 0.3 (0.0-0.4); EOSINOPHILS % 6.4 % (0.0-6.0); HEMATOCRIT 45.2 % (34.2-44.1); LYMPHOCYTES # (AUTO) 1.1 (1.0-3.2); LYMPHOCYTES % 20.3 % (18.0-39.1); MEAN CORPUSCULAR HEMOGLOBIN 26.5 pg (28-32); MEAN CORPUSCULAR VOLUME 85.6 fL (81-99); MONOCYTES # (AUTO) 0.5 (0.2-0.8); MONOCYTES % 8.9 % (4.4-11.3); NEUTROPHILS # (AUTO) 3.3 (2.1-6.9); NEUTROPHILS % 62.7 % (38.7-80.0); PLATELET COUNT 189 x10e3/uL (140-360); RED BLOOD COUNT 5.28 x10e6/uL (3.6-5.1); RED CELL DISTRIBUTION WIDTH 14.7 % (11.7-14.4)
[2021-01-03 11:41] LABS: ALBUMIN 3.9 g/dL (3.5-5.0); CREATININE, SERUM 1.06 mg/dL (0.57-1.11)
[~2021-01-06] MED LIST changes: +BUPIVACAINE 0.25% 30ML SDV ONE; +CEFOXITIN 1GM/0.9% NS 50ML 100 ML IV ONE; +DEXAMETHASONE SOD PHOS INJ 4 MG/ML VIAL ONE; +FENTANYL CITRATE/PF 100MCG/2 ML INJ ONE; +KETOROLAC TROMETHAMINE 30 MG/ML VIAL ONE; +LIDOCAINE HCL 2% LOCAL INJ 5 ML SDV VIAL INJ ONE; +MIDAZOLAM HCL 2 MG/2 ML VIAL ONE; +OLMESARTAN-HCT1 EAC2 PO; +ONDANSETRON HCL INJ 2MG/ML 2ML 2 MG/ML VIAL ONE; +PANTOPRAZOLE SO40 MG PO; +POVIDONE IODINE 0.05% 0.05 % ML PO ONE; +PROPOFOL IV EMULSION 10 MG/ML 20 ML VIAL ONE; +SEVOFLURANE INHAL SOLN 250 ML PEN BTL ONE; +SUGAMMADEX SODIUM 200 MG/2 ML VIAL IV ONE
[2021-01-06 15:05] VITALS: BP 167/96
== END | disposition home or self-care (01) ==
LOC: OR 10:28
PROVIDERS: ATTEND Surgery
DX: K81.1 Chronic cholecystitis (principal); K74.60 Unspecified cirrhosis of liver; K27.9 Peptic ulcer, site unspecified, unspecified as acute or chronic, without hemorrhage or perforation; K21.9 Gastro-esophageal reflux disease without esophagitis; E11.9 Type 2 diabetes mellitus without complications; I11.0 Hypertensive heart disease with heart failure; I50.9 Heart failure, unspecified; I42.9 Cardiomyopathy, unspecified; E03.9 Hypothyroidism, unspecified; M54.31 Sciatica, right side; F41.9 Anxiety disorder, unspecified; Z88.8 Allergy status to other drugs, medicaments and biological substances; Z01.812 Encounter for preprocedural laboratory examination; Z01.818 Encounter for other preprocedural examination; Z20.822 Contact with and (suspected) exposure to COVID-19; Z68.30 Body mass index [BMI] 30.0-30.9, adult; Z86.73 Personal history of transient ischemic attack (TIA), and cerebral infarction without residual deficits
CPT/HCPCS: 36415 ×2; 47562; 71046; 80053; 82948; 85025; 88304; J1100; J1885; J2001; J2250; J2405; J2704; J3010; U0002

== ENCOUNTER → 2021-01-21 | Outpatient (CLI) | payer OTHER ==
[~2021-01-21] MED LIST changes: -BUPIVACAINE 0.25% 30ML SDV ONE; -CEFOXITIN 1GM/0.9% NS 50ML 100 ML IV ONE; -DEXAMETHASONE SOD PHOS INJ 4 MG/ML VIAL ONE; -FENTANYL CITRATE/PF 100MCG/2 ML INJ ONE; -KETOROLAC TROMETHAMINE 30 MG/ML VIAL ONE; -LIDOCAINE HCL 2% LOCAL INJ 5 ML SDV VIAL INJ ONE; -MIDAZOLAM HCL 2 MG/2 ML VIAL ONE; -ONDANSETRON HCL INJ 2MG/ML 2ML 2 MG/ML VIAL ONE; -POVIDONE IODINE 0.05% 0.05 % ML PO ONE; -PROPOFOL IV EMULSION 10 MG/ML 20 ML VIAL ONE; -SEVOFLURANE INHAL SOLN 250 ML PEN BTL ONE; -SUGAMMADEX SODIUM 200 MG/2 ML VIAL IV ONE
== END ==
LOC: US 15:27
PROVIDERS: ATTEND Internal Medicine Gastroenterology
DX: K74.60 Unspecified cirrhosis of liver (principal)
CPT/HCPCS: 76705

== ENCOUNTER → 2021-02-11 | Outpatient (CLI) | payer OTHER | LOC: NM 12:43 | PROVIDERS: ATTEND Internal Medicine Gastroenterology | DX: K74.60 Unspecified cirrhosis of liver (principal) | CPT/HCPCS: 78215; A9541 ==

== ENCOUNTER 2021-04-04 03:03 | Emergency (ER) | payer OTHER ==
[~2021-04-04] VITALS: Ht 154.9 cm; Wt 77.6 kg
[2021-04-04 03:28] LABS: BASOPHILS # (AUTO) 0.1 (0.0-0.1); BASOPHILS % 1.3 % (0.0-1.0); EOSINOPHILS # (AUTO) 0.5 (0.0-0.4); EOSINOPHILS % 6.7 % (0.0-6.0); HEMATOCRIT 39.8 % (34.2-44.1); HEMOGLOBIN 12.4 g/dL (12.0-16.0); LYMPHOCYTES # (AUTO) 1.9 (1.0-3.2); LYMPHOCYTES % 26.8 % (18.0-39.1); MEAN CORPUSCULAR HEMOGLOBIN 27.3 pg (28-32); MEAN CORPUSCULAR HGB CONC 31.2 g/dL (31-35); MEAN CORPUSCULAR VOLUME 87.5 fL (81-99); MONOCYTES % 14.2 % (4.4-11.3); NEUTROPHILS # (AUTO) 3.6 (2.1-6.9); NEUTROPHILS % 50.6 % (38.7-80.0); PLATELET COUNT 187 x10e3/uL (140-360); RED BLOOD COUNT 4.55 x10e6/uL (3.6-5.1); RED CELL DISTRIBUTION WIDTH 13.7 % (11.7-14.4)
[2021-04-04 03:46] LABS: CREATINE KINASE MB 1.6 ng/mL (0-5.0)
[2021-04-04 03:52] LABS: ALBUMIN 3.5 g/dL (3.5-5.0); ALBUMIN/GLOBULIN RATIO 1.1 (0.8-2.0); CALCIUM 8.5 mg/dL (8.4-10.2); CREATININE, SERUM 1.23 mg/dL (0.57-1.11)
[2021-04-04] MEDS ORDERED: INSULIN REGULAR, HUMAN 100 UNIT/1 ML SQ ONE (04:00)
[2021-04-04] MEDS ORDERED: SODIUM CHLORIDE 0.9% 1000ML 1,000 ML IV ONE (04:00)
[2021-04-04] MEDS ORDERED: SODIUM CHLORIDE 0.9% 1000ML 1,000 ML ONE (04:05)
[2021-04-04] MEDS ORDERED: INSULIN REGULAR, HUMAN 100 UNIT/1 ML ONE (04:06)
[2021-04-04 04:55] VITALS: BP 159/88
== END 2021-04-04 04:53 | disposition home or self-care (01) ==
LOC: ER 03:09
DX: R20.0 Anesthesia of skin (principal); I10 Essential (primary) hypertension; E11.65 Type 2 diabetes mellitus with hyperglycemia; E11.42 Type 2 diabetes mellitus with diabetic polyneuropathy; E78.5 Hyperlipidemia, unspecified; R94.31 Abnormal electrocardiogram [ECG] [EKG]
CPT/HCPCS: 36415; 70450; 80053; 82550; 82553; 82948; 84484; 85025; 93005; 99284; J1817; J7030

== ENCOUNTER → 2021-05-03 | Day surgery (SDC) | payer OTHER ==
[2021-04-28 15:15] LABS: BASOPHILS # (AUTO) 0.1 (0.0-0.1); BASOPHILS % 1.6 % (0.0-1.0); EOSINOPHILS # (AUTO) 0.4 (0.0-0.4); HEMOGLOBIN 12.6 g/dL (12.0-16.0); LYMPHOCYTES # (AUTO) 1.2 (1.0-3.2); LYMPHOCYTES % 21.3 % (18.0-39.1); MEAN CORPUSCULAR HEMOGLOBIN 26.9 pg (28-32); MEAN CORPUSCULAR VOLUME 89.7 fL (81-99); MONOCYTES # (AUTO) 0.8 (0.2-0.8); MONOCYTES % 13.1 % (4.4-11.3); NEUTROPHILS # (AUTO) 3.3 (2.1-6.9); NEUTROPHILS % 56.8 % (38.7-80.0); PLATELET COUNT 173 x10e3/uL (140-360); RED BLOOD COUNT 4.68 x10e6/uL (3.6-5.1); RED CELL DISTRIBUTION WIDTH 13.4 % (11.7-14.4)
[2021-04-28 15:38] LABS: ALBUMIN 3.5 g/dL (3.5-5.0); ANION GAP 14.5 mmol/L (8-16); CALCIUM 8.7 mg/dL (8.4-10.2); CREATININE, SERUM 1.16 mg/dL (0.57-1.11); POTASSIUM 4.5 mmol/L (3.5-5.1)
[~2021-05-03] VITALS: Ht 154.9 cm; Wt 72.6 kg
[2021-05-03] VITALS (10 sets, daily range): BP systolic 140–199; BP diastolic 70–110
[~2021-05-03] MED LIST changes: +ALPRAZOLAM 0.5 MG TAB ONE; +DIPHENHYDRAMINE HCL 25 MG CAP ONE; +FENTANYL CITRATE/PF 100MCG/2 ML INJ ONE; +HEPARIN SOD/SOD CHLORIDE 2,000 ML ONE; +IOPAMIDOL 370 MG/ML 200 ML INFUS..BTL INJ ONE; +LIDOCAINE HCL 2% LOCAL 20 ML VIAL ONE; +MIDAZOLAM HCL 2 MG/2 ML VIAL ONE; +SODIUM CHLORIDE 0.9% 1000ML 1,000 ML ONE; +VERAPAMIL HCL 2.5 MG/ML 2 ML VIAL ONE
== END | disposition home or self-care (01) ==
LOC: CATH LAB 12:14
PROVIDERS: ATTEND Internal Medicine Interventional Cardiology
DX: I25.118 Atherosclerotic heart disease of native coronary artery with other forms of angina pectoris (principal); R94.39 Abnormal result of other cardiovascular function study; I10 Essential (primary) hypertension; E11.9 Type 2 diabetes mellitus without complications; Z01.812 Encounter for preprocedural laboratory examination; Z20.822 Contact with and (suspected) exposure to COVID-19; Z68.31 Body mass index [BMI] 31.0-31.9, adult; Z87.440 Personal history of urinary (tract) infections; Z82.49 Family history of ischemic heart disease and other diseases of the circulatory system; Z83.3 Family history of diabetes mellitus
CPT/HCPCS: 36415; 76937; 80053; 83880; 85025; 93454; C1887; J2001; J2250; J3010; J7030; Q9967; U0002; 99152

== ENCOUNTER 2021-05-22 11:47 | Emergency (ER) | payer OTHER ==
[~2021-05-22] VITALS: Ht 157.5 cm; Wt 81.6 kg
[~2021-05-22 11:47] MED LIST changes: -ALPRAZOLAM 0.5 MG TAB ONE; -DIPHENHYDRAMINE HCL 25 MG CAP ONE; -FENTANYL CITRATE/PF 100MCG/2 ML INJ ONE; -HEPARIN SOD/SOD CHLORIDE 2,000 ML ONE; -IOPAMIDOL 370 MG/ML 200 ML INFUS..BTL INJ ONE; -LIDOCAINE HCL 2% LOCAL 20 ML VIAL ONE; -MIDAZOLAM HCL 2 MG/2 ML VIAL ONE; -SODIUM CHLORIDE 0.9% 1000ML 1,000 ML ONE; -VERAPAMIL HCL 2.5 MG/ML 2 ML VIAL ONE
[2021-05-22] MEDS ORDERED: DIAZEPAM 5 MG TAB PO NR (12:02)
[2021-05-22] MEDS ORDERED: KETOROLAC TROMETHAMINE 60 MG/2 ML VIAL IM NR (12:45)
== END 2021-05-22 13:45 | disposition home or self-care (01) ==
LOC: ER 12:15
DX: M25.511 Pain in right shoulder (principal); M62.838 Other muscle spasm; E11.42 Type 2 diabetes mellitus with diabetic polyneuropathy; I10 Essential (primary) hypertension; E78.5 Hyperlipidemia, unspecified; I48.91 Unspecified atrial fibrillation; I25.10 Atherosclerotic heart disease of native coronary artery without angina pectoris; F41.9 Anxiety disorder, unspecified
CPT/HCPCS: 99283; J1885

== ENCOUNTER 2022-01-29 13:26 | Emergency (ER) | payer OTHER ==
[~2022-01-29] VITALS: Ht 157.5 cm; Wt 81.6 kg
[2022-01-29] MEDS ORDERED: HYDROCODONE/APAP 5MG-325MG TAB PO ONE (15:00)
[2022-01-29] MEDS ORDERED: HYDROCODON-ACE1 EA11 PO (18:49)
[2022-01-29] MEDS ORDERED: IBUPROFEN600 MG PO (18:49)
== END 2022-01-29 19:08 | disposition home or self-care (01) ==
LOC: ER 15:20
DX: S92.001A Unspecified fracture of right calcaneus, initial encounter for closed fracture (principal); X50.1XXA Overexertion from prolonged static or awkward postures, initial encounter; Y93.89 Activity, other specified; Y92.39 Other specified sports and athletic area as the place of occurrence of the external cause; I10 Essential (primary) hypertension; E11.42 Type 2 diabetes mellitus with diabetic polyneuropathy; E78.5 Hyperlipidemia, unspecified; I48.91 Unspecified atrial fibrillation; I25.10 Atherosclerotic heart disease of native coronary artery without angina pectoris; F41.9 Anxiety disorder, unspecified
CPT/HCPCS: 99283

== ENCOUNTER 2022-11-21 11:04 | Emergency (ER) | payer OTHER ==
[~2022-11-21] VITALS: Ht 157.5 cm; Wt 81.6 kg
[~2022-11-21 11:04] MED LIST changes: +HYDROCODON-ACE1 EA11 PO; +IBUPROFEN600 MG PO
[2022-11-21] MEDS ORDERED: HYDRALAZINE HCL 20 MG/ML VIAL IV PRN (11:30)
[2022-11-21] MEDS ORDERED: ONDANSETRON HCL INJ 2MG/ML 2ML 2 MG/ML VIAL IV PRN (11:30)
[2022-11-21] MEDS ORDERED: ASPIRIN 81 MG CHEW TAB PO ONE (11:30)
[2022-11-21 11:39] LABS: BASOPHILS # (AUTO) 0.1 (0.0-0.1); BASOPHILS % 1.5 % (0.0-1.0); EOSINOPHILS # (AUTO) 0.2 (0.0-0.4); EOSINOPHILS % 3.1 % (0.0-6.0); HEMATOCRIT 39.8 % (34.2-44.1); HEMOGLOBIN 12.1 g/dL (12.0-16.0); LYMPHOCYTES % 15.7 % (18.0-39.1); MEAN CORPUSCULAR HEMOGLOBIN 26.7 pg (28-32); MEAN CORPUSCULAR HGB CONC 30.4 g/dL (31-35); MEAN CORPUSCULAR VOLUME 87.7 fL (81-99); MONOCYTES # (AUTO) 0.5 (0.2-0.8); MONOCYTES % 8.1 % (4.4-11.3); NEUTROPHILS # (AUTO) 4.3 (2.1-6.9); NEUTROPHILS % 71.4 % (38.7-80.0); PLATELET COUNT 187 x10e3/uL (140-360); RED BLOOD COUNT 4.54 x10e6/uL (3.6-5.1); RED CELL DISTRIBUTION WIDTH 13.6 % (11.7-14.4)
[2022-11-21] MEDS ORDERED: DIPHENOXYLATE/ATROPINE TAB PO ONE (12:00)
[2022-11-21 12:02] LABS: ANION GAP 12.2 mmol/L (8-16); CALCIUM 8.5 mg/dL (8.4-10.2); CREATININE, SERUM 1.55 mg/dL (0.57-1.11); POTASSIUM 4.2 mmol/L (3.5-5.1)
[2022-11-21 12:08] LABS: CREATINE KINASE MB 2.7 ng/mL (0-5.0)
[2022-11-21] MEDS ORDERED: HYDRALAZINE HCL 20 MG/ML VIAL IV ONE (13:00)
[2022-11-21 13:35] VITALS: BP 141/71
== END 2022-11-21 13:38 | disposition home or self-care (01) ==
LOC: ER 11:10
DX: I16.0 Hypertensive urgency (principal); I12.9 Hypertensive chronic kidney disease with stage 1 through stage 4 chronic kidney disease, or unspecified chronic kidney disease; E11.22 Type 2 diabetes mellitus with diabetic chronic kidney disease; E11.65 Type 2 diabetes mellitus with hyperglycemia; N18.9 Chronic kidney disease, unspecified; I48.91 Unspecified atrial fibrillation; I25.10 Atherosclerotic heart disease of native coronary artery without angina pectoris; E78.5 Hyperlipidemia, unspecified; F41.9 Anxiety disorder, unspecified; G62.9 Polyneuropathy, unspecified
CPT/HCPCS: 36415; 70450; 71045; 80053; 82550; 82553; 83880; 84484; 85025; 93005; 99284; J0360; J2405

== ENCOUNTER 2023-09-26 19:33 | Inpatient (IN) | payer OTHER ==
[~2023-09-26] VITALS: Ht 154.9 cm; Wt 72.6 kg
[2023-09-26] MEDS ORDERED: SODIUM CHLORIDE 0.9% 1000ML 1,000 ML IV STA (19:53)
[2023-09-26] MEDS ORDERED: HYDRALAZINE HCL 20 MG/ML VIAL IV STA ×2 (19:53→21:40)
[2023-09-26 20:16] LABS: BASOPHILS # (AUTO) 0.1 (0.0-0.1); BASOPHILS % 1.3 % (0.0-1.0); EOSINOPHILS # (AUTO) 0.2 (0.0-0.4); EOSINOPHILS % 3.3 % (0.0-6.0); HEMATOCRIT 36.8 % (34.2-44.1); HEMOGLOBIN 11.5 g/dL (12.0-16.0); LYMPHOCYTES % 20.8 % (18.0-39.1); MEAN CORPUSCULAR HEMOGLOBIN 27.3 pg (28-32); MEAN CORPUSCULAR HGB CONC 31.3 g/dL (31-35); MEAN CORPUSCULAR VOLUME 87.2 fL (81-99); MONOCYTES # (AUTO) 0.4 (0.2-0.8); MONOCYTES % 8.7 % (4.4-11.3); NEUTROPHILS % 65.7 % (38.7-80.0); PLATELET COUNT 113 x10e3/uL (140-360); RED BLOOD COUNT 4.22 x10e6/uL (3.6-5.1); RED CELL DISTRIBUTION WIDTH 13.8 % (11.7-14.4); WHITE BLOOD COUNT 4.61 x10e3/uL (4.8-10.8)
[2023-09-26 20:32] LABS: ALBUMIN 2.8 g/dL (3.5-5.0); ALBUMIN/GLOBULIN RATIO 0.8 (0.8-2.0); ANION GAP 14.4 mmol/L (8-16); BILIRUBIN,TOTAL 0.5 mg/dL (0.2-1.2); CREATININE, SERUM 3.38 mg/dL (0.57-1.11); TOTAL PROTEIN 6.2 g/dL (6.5-8.1)
[2023-09-26 20:34] LABS: POTASSIUM 3.4 mmol/L (3.5-5.1)
[2023-09-26 20:38] LABS: TROPONIN I 0.064 ng/mL (0-0.300)
[2023-09-26] MEDS ORDERED: SODIUM CHLORIDE FLUSH 10 ML SYR INJ PRN (22:15)
[2023-09-26] MEDS ORDERED: DEXTROSE 50% SYRINGE 50 ML IV PRN (22:15)
[2023-09-27] VITALS (8 sets, daily range): BP systolic 159–219; BP diastolic 79–106; PULSE 86–101; RESP 17–18; TEMP 97.6–98; O2SAT 97–100
[2023-09-27] MEDS: ACETAMINOPHEN 325 MG TAB PO PRN (02:00)
[2023-09-27] MEDS: HYDRALAZINE HCL 20 MG/ML VIAL IV PRN ×2 (05:55→12:03)
[2023-09-27 05:59] LABS: BASOPHILS # (AUTO) 0.1 (0.0-0.1); EOSINOPHILS # (AUTO) 0.2 (0.0-0.4); EOSINOPHILS % 3.7 % (0.0-6.0); HEMATOCRIT 31.9 % (34.2-44.1); HEMOGLOBIN 10.2 g/dL (12.0-16.0); LYMPHOCYTES # (AUTO) 1.1 (1.0-3.2); LYMPHOCYTES % 20.9 % (18.0-39.1); MEAN CORPUSCULAR HEMOGLOBIN 27.1 pg (28-32); MEAN CORPUSCULAR VOLUME 84.8 fL (81-99); MONOCYTES # (AUTO) 0.6 (0.2-0.8); MONOCYTES % 11.1 % (4.4-11.3); NEUTROPHILS # (AUTO) 3.2 (2.1-6.9); NEUTROPHILS % 63.1 % (38.7-80.0); PLATELET COUNT 112 x10e3/uL (140-360); RED BLOOD COUNT 3.76 x10e6/uL (3.6-5.1); RED CELL DISTRIBUTION WIDTH 13.7 % (11.7-14.4); WHITE BLOOD COUNT 5.13 x10e3/uL (4.8-10.8)
[2023-09-27 06:37] LABS: ALBUMIN 2.4 g/dL (3.5-5.0); ALBUMIN/GLOBULIN RATIO 0.8 (0.8-2.0); ANION GAP 13.2 mmol/L (8-16); BILIRUBIN,TOTAL 0.3 mg/dL (0.2-1.2); CREATININE, SERUM 3.36 mg/dL (0.57-1.11); TOTAL PROTEIN 5.3 g/dL (6.5-8.1)
[2023-09-27 06:42] LABS: POTASSIUM 3.2 mmol/L (3.5-5.1)
[2023-09-27 07:19] LABS: TROPONIN I 0.146 ng/mL (0-0.300)
[2023-09-27] MEDS: INSULIN REGULAR, HUMAN 100 UNIT/1 ML SQ SCH ×4 (09:24→21:11)
[2023-09-27] MEDS ORDERED: LEVOTHYROXINE75 MCG PO (09:46)
[2023-09-27] MEDS ORDERED: POTASSIUM CHLORIDE 20 MEQ TAB CR PO ONE (11:00)
[2023-09-27] MEDS: NIFEDIPINE CR 30 MG TAB PO SCH (12:05)
[2023-09-27 13:55] LABS: COLOR,URINE YELLOW (YELLOW)
[2023-09-27 13:56] LABS: BILIRUBIN,URINE NEGATIVE (NEGATIVE); CLARITY,URINE SL CLOUDY (CLEAR); GLUCOSE, URINE 500 (NEGATIVE); KETONES,URINE NEGATIVE (NEGATIVE); LEUKOCYTE ESTERASE ,URINE NEGATIVE (NEGATIVE); NITRITE,URINE NEGATIVE (NEGATIVE); PH,URINE 5.5 (5 - 7); PROTEIN,URINE DIPSTICK >=300 (NEGATIVE); URINE UROBILINOGEN 0.2 mg/dL (0.2 - 1)
[2023-09-27 14:09] LABS: BACTERIA,URINE FEW /HPF; EPITHELIAL CELLS,URINE MODERATE /LPF; RBC,URINE 0-5 /HPF (0-5); WBC,URINE (MAN) 0-5 /HPF (0-5)
[2023-09-27 14:23] LABS: CREATININE,URINE RANDOM 55.01 mg/dL (47-110)
[2023-09-27 14:57] LABS: TOTAL PROTEIN, URINE 368.5 mg/dL (1-14)
[2023-09-27 17:30] LABS: TROPONIN I 2.344 ng/mL (0-0.300)
[2023-09-27] MEDS ORDERED: VALSARTAN 80 MG TAB PO SCH (21:00)
[2023-09-27] MEDS: MELATONIN 3 MG TAB PO SCH (21:13)
[2023-09-27] MEDS: SERTRALINE HCL 50 MG TAB PO SCH (21:14)
[2023-09-28] VITALS: BP_SYST 151; BP_SYST 98; BP_DIAS 72; BP_DIAS 76; PULSE 83; PULSE 90; RESP 18; TEMP 97.9; TEMP 98.3; O2SAT 96
[2023-09-28 04:00] VITALS: BP 128/68; PULSE 79; RESP 20; TEMP 98; O2SAT 98
[2023-09-28] MEDS: ACETAMINOPHEN 325 MG TAB PO PRN (06:18)
[2023-09-28 07:25] LABS: ALBUMIN 2.6 g/dL (3.5-5.0); ALBUMIN/GLOBULIN RATIO 0.8 (0.8-2.0); ANION GAP 11.6 mmol/L (8-16); BILIRUBIN,TOTAL 0.3 mg/dL (0.2-1.2); CALCIUM 7.9 mg/dL (8.4-10.2); CREATININE, SERUM 3.43 mg/dL (0.57-1.11); POTASSIUM 3.6 mmol/L (3.5-5.1); TOTAL PROTEIN 5.8 g/dL (6.5-8.1)
[2023-09-28] MEDS: CANAGLIFLOZIN 100 MG TABLET PO SCH (07:30)
[2023-09-28 08:00] VITALS: BP 138/70; PULSE 77; RESP 18; TEMP 97.8; O2SAT 100
[2023-09-28] MEDS: NIFEDIPINE CR 30 MG TAB PO SCH ×2 (08:35→21:17)
[2023-09-28] MEDS: SERTRALINE HCL 50 MG TAB PO SCH ×2 (08:35→21:19)
[2023-09-28] MEDS: INSULIN REGULAR, HUMAN 100 UNIT/1 ML SQ SCH ×4 (08:36→21:27)
[2023-09-28 09:00] VITALS: BP 138/70; PULSE 77; RESP 18; TEMP 97.8; O2SAT 100
[2023-09-28] MEDS ORDERED: SODIUM BICARBONATE 650 MG TAB PO SCH (09:00)
[2023-09-28 12:00] VITALS: BP 151/82; PULSE 83; RESP 17; TEMP 97.7; O2SAT 100
[2023-09-28 16:00] VITALS: BP 134/91; PULSE 87; RESP 18; TEMP 98.2; O2SAT 100
[2023-09-28] MEDS: SODIUM BICARBONATE 650 MG TAB PO SCH (16:27)
[2023-09-28] MEDS ORDERED: CALCIUM CARBONATE 500 MG CHEWABLE TABS PO SCH (17:00)
[2023-09-28] MEDS: METOPROLOL SUCCINATE 25 MG TAB XL PO SCH (17:53)
[2023-09-28] MEDS: MELATONIN 3 MG TAB PO SCH (21:17)
[2023-09-29 00:54] VITALS: BP 134/70; PULSE 60; RESP 18; TEMP 98.2
[2023-09-29 08:38] VITALS: BP 147/85; PULSE 86; RESP 20; TEMP 97.9; O2SAT 95
[2023-09-29 08:58] LABS: ALBUMIN 2.6 g/dL (3.5-5.0); ALBUMIN/GLOBULIN RATIO 0.8 (0.8-2.0); ANION GAP 11.3 mmol/L (8-16); BILIRUBIN,TOTAL 0.3 mg/dL (0.2-1.2); CREATININE, SERUM 3.6 mg/dL (0.57-1.11); POTASSIUM 4.3 mmol/L (3.5-5.1); TOTAL PROTEIN 5.9 g/dL (6.5-8.1)
[2023-09-29 09:00] VITALS: BP 147/85; PULSE 86; RESP 20; TEMP 97.9; O2SAT 95
[2023-09-29] MEDS: SODIUM BICARBONATE 650 MG TAB PO SCH ×2 (10:14→18:04)
[2023-09-29] MEDS: NIFEDIPINE CR 30 MG TAB PO SCH (10:14)
[2023-09-29] MEDS: CANAGLIFLOZIN 100 MG TABLET PO SCH (10:14)
[2023-09-29] MEDS: METOPROLOL SUCCINATE 25 MG TAB XL PO SCH (10:15)
[2023-09-29] MEDS: SERTRALINE HCL 50 MG TAB PO SCH (10:15)
[2023-09-29] MEDS: INSULIN REGULAR, HUMAN 100 UNIT/1 ML SQ SCH ×3 (10:16→18:04)
[2023-09-29 12:00] VITALS: BP 147/85; PULSE 86; RESP 20; TEMP 97.9; O2SAT 95
[2023-09-29 12:03] VITALS: BP 169/90; PULSE 76; RESP 18; TEMP 97.9; O2SAT 97
[2023-09-29 12:19] LABS: CREATININE,URINE RANDOM 33.88 mg/dL (47-110)
[2023-09-29] MEDS: ACETAMINOPHEN 325 MG TAB PO PRN (14:54)
[2023-09-29 16:31] VITALS: BP 124/72; PULSE 79; RESP 18; TEMP 97.9; O2SAT 99
[2023-09-29] MEDS ORDERED: OLMESARTAN-HCT1 EAC2 PO (18:31)
[2023-09-29] MEDS ORDERED: SYNJARDY 12.5-1 EACH PO (18:31)
[2023-09-29] MEDS ORDERED: AMLODIPINE BESYL5 MG PO (18:31)
[2023-09-29] MEDS ORDERED: CITALOPRAM HBR20 MG PO (18:31)
[2023-09-29] MEDS ORDERED: LEVOTHYROXINE75 MCG PO (18:31)
[2023-09-30] MEDS ORDERED: LEVOTHYROXINE SODIUM 75 MCG TAB PO SCH (06:00)
[2023-09-30] MEDS ORDERED: PANTOPRAZOLE SOD 40 MG TABEC PO SCH (07:30)
== END 2023-09-29 19:21 | disposition home or self-care (01) | DRG 281 ==
LOC: ER 19:55 → ERHOLD 22:03 → MED/SURG3 23:20 → OBSVTOIN 09-28 08:19
PROVIDERS: ADMIT Internal Medicine; ATTEND Internal Medicine
DX: I16.0 Hypertensive urgency (principal); I21.A1 Myocardial infarction type 2; E87.1 Hypo-osmolality and hyponatremia; I42.2 Other hypertrophic cardiomyopathy; I13.10 Hypertensive heart and chronic kidney disease without heart failure, with stage 1 through stage 4 chronic kidney disease, or unspecified chronic kidney disease; N18.32 Chronic kidney disease, stage 3b; E11.22 Type 2 diabetes mellitus with diabetic chronic kidney disease; E11.65 Type 2 diabetes mellitus with hyperglycemia; E11.42 Type 2 diabetes mellitus with diabetic polyneuropathy; E11.319 Type 2 diabetes mellitus with unspecified diabetic retinopathy without macular edema; Z79.85 Long-term (current) use of injectable non-insulin antidiabetic drugs; Z79.84 Long term (current) use of oral hypoglycemic drugs; I25.10 Atherosclerotic heart disease of native coronary artery without angina pectoris; E03.9 Hypothyroidism, unspecified; E06.3 Autoimmune thyroiditis; F41.9 Anxiety disorder, unspecified; G47.00 Insomnia, unspecified; M06.9 Rheumatoid arthritis, unspecified; Z11.52 Encounter for screening for COVID-19; Z79.899 Other long term (current) drug therapy
CPT/HCPCS: 36415; 70450; 71045; 76770; 80053; 81001; 82550; 82570; 82575; 82948; 83880; 84156; 84484; 85025; 93005; 93306; 96372; 99284; G0378; U0002

== ENCOUNTER 2023-10-05 11:41 | Inpatient (IN) | payer OTHER ==
[~2023-10-05] VITALS: Ht 154.9 cm; Wt 72.6 kg
[~2023-10-05 11:41] MED LIST changes: +LEVOTHYROXINE75 MCG PO
[2023-10-05 13:08] LABS: BASOPHILS # (AUTO) 0.1 (0.0-0.1); BASOPHILS % 1.1 % (0.0-1.0); EOSINOPHILS # (AUTO) 0.4 (0.0-0.4); EOSINOPHILS % 4.9 % (0.0-6.0); HEMATOCRIT 35.5 % (34.2-44.1); HEMOGLOBIN 10.7 g/dL (12.0-16.0); LYMPHOCYTES # (AUTO) 1.3 (1.0-3.2); LYMPHOCYTES % 18.8 % (18.0-39.1); MEAN CORPUSCULAR HEMOGLOBIN 27.2 pg (28-32); MEAN CORPUSCULAR HGB CONC 30.1 g/dL (31-35); MEAN CORPUSCULAR VOLUME 90.3 fL (81-99); MONOCYTES # (AUTO) 0.8 (0.2-0.8); MONOCYTES % 11.8 % (4.4-11.3); NEUTROPHILS # (AUTO) 4.5 (2.1-6.9); NEUTROPHILS % 63.1 % (38.7-80.0); PLATELET COUNT 186 x10e3/uL (140-360); RED BLOOD COUNT 3.93 x10e6/uL (3.6-5.1); RED CELL DISTRIBUTION WIDTH 14.4 % (11.7-14.4); WHITE BLOOD COUNT 7.11 x10e3/uL (4.8-10.8)
[2023-10-05 13:13] LABS: INR 0.9; PROTHROMBIN TIME 12.3 seconds (11.9-14.5)
[2023-10-05 13:14] LABS: PARTIAL THROMBOPLASTIN TIME 29.7 seconds (23.8-35.5)
[2023-10-05 13:24] LABS: ALBUMIN 2.6 g/dL (3.5-5.0); ALBUMIN/GLOBULIN RATIO 0.7 (0.8-2.0); ANION GAP 13.3 mmol/L (8-16); BILIRUBIN,TOTAL 0.4 mg/dL (0.2-1.2); CALCIUM 8.6 mg/dL (8.4-10.2); CREATININE, SERUM 3.9 mg/dL (0.57-1.11); MAGNESIUM 2.2 MG/DL (1.3-2.1); POTASSIUM 4.3 mmol/L (3.5-5.1); TOTAL PROTEIN 6.2 g/dL (6.5-8.1)
[2023-10-05 13:33] LABS: TROPONIN I 1.039 ng/mL (0-0.300)
[2023-10-05] MEDS: SODIUM CHLORIDE 0.9% 1000ML 1,000 ML IV STA (13:49)
[2023-10-05] MEDS: FUROSEMIDE INJ 10 MG/ML 4 ML VIAL IV ONE ×2 (14:11)
[2023-10-05] MEDS ORDERED: ONDANSETRON HCL INJ 2MG/ML 2ML 2 MG/ML VIAL IV PRN (14:45)
[2023-10-05 16:47] VITALS: BP 173/90; PULSE 62; RESP 19; TEMP 97.7; O2SAT 97
[2023-10-05 17:16] VITALS: BP 173/90; PULSE 62; RESP 19; TEMP 97.7; O2SAT 97
[2023-10-05] MEDS ORDERED: ALPRAZOLAM0.5 MG PO (17:29)
[2023-10-05] MEDS ORDERED: LOSARTAN POTASS25 MG PO (17:29)
[2023-10-05] MEDS ORDERED: METOPROLOL SUC100 MG (17:29)
[2023-10-05] MEDS: NIFEDIPINE CR 30 MG TAB PO SCH (18:19)
[2023-10-05 20:00] VITALS: BP 184/87; PULSE 63; RESP 18; TEMP 98; O2SAT 97
[2023-10-05] MEDS ORDERED: FUROSEMIDE INJ 10 MG/ML 4 ML VIAL IV SCH (21:00)
[2023-10-05] MEDS: ALPRAZOLAM 0.5 MG TAB PO SCH (21:10)
[2023-10-05] MEDS: BUMETANIDE INJ 0.25MG/ML 4ML VIAL IV SCH (21:11)
[2023-10-06] VITALS: BP 163/84; PULSE 67; RESP 18; TEMP 98.1; O2SAT 96
[2023-10-06 04:00] VITALS: BP 156/74; PULSE 67; RESP 18; TEMP 98; O2SAT 95
[2023-10-06] MEDS: LEVOTHYROXINE SODIUM 75 MCG TAB PO SCH (05:32)
[2023-10-06 07:05] LABS: BASOPHILS # (AUTO) 0.1 (0.0-0.1); BASOPHILS % 1.6 % (0.0-1.0); EOSINOPHILS # (AUTO) 0.3 (0.0-0.4); EOSINOPHILS % 4.6 % (0.0-6.0); HEMATOCRIT 38.3 % (34.2-44.1); HEMOGLOBIN 11.6 g/dL (12.0-16.0); LYMPHOCYTES # (AUTO) 1.1 (1.0-3.2); LYMPHOCYTES % 19.5 % (18.0-39.1); MEAN CORPUSCULAR HEMOGLOBIN 27.2 pg (28-32); MEAN CORPUSCULAR HGB CONC 30.3 g/dL (31-35); MEAN CORPUSCULAR VOLUME 89.7 fL (81-99); MONOCYTES # (AUTO) 0.7 (0.2-0.8); MONOCYTES % 12.6 % (4.4-11.3); NEUTROPHILS # (AUTO) 3.5 (2.1-6.9); NEUTROPHILS % 61.5 % (38.7-80.0); PLATELET COUNT 196 x10e3/uL (140-360); RED BLOOD COUNT 4.27 x10e6/uL (3.6-5.1); RED CELL DISTRIBUTION WIDTH 14.4 % (11.7-14.4)
[2023-10-06 07:35] LABS: ALBUMIN 2.5 g/dL (3.5-5.0); ALBUMIN/GLOBULIN RATIO 0.7 (0.8-2.0); ANION GAP 16.1 mmol/L (8-16); BILIRUBIN,TOTAL 0.4 mg/dL (0.2-1.2); CALCIUM 8.5 mg/dL (8.4-10.2); CREATININE, SERUM 4.46 mg/dL (0.57-1.11); POTASSIUM 4.1 mmol/L (3.5-5.1); TOTAL PROTEIN 6.3 g/dL (6.5-8.1)
[2023-10-06 07:46] LABS: TROPONIN I 0.809 ng/mL (0-0.300)
[2023-10-06 08:00] VITALS: BP 131/65; PULSE 68; RESP 17; TEMP 97.7; O2SAT 96
[2023-10-06] MEDS: ATORVASTATIN 20 MG TAB PO SCH (09:04)
[2023-10-06] MEDS: ASPIRIN 81 MG CHEW TAB PO SCH (09:04)
[2023-10-06] MEDS: METOPROLOL SUCCINATE 50 MG TAB XL PO SCH (09:04)
[2023-10-06 12:00] VITALS: BP 136/74; PULSE 72; RESP 14; TEMP 97.9; O2SAT 97
[2023-10-06 16:00] VITALS: BP 164/69; PULSE 74; RESP 16; TEMP 98.1; O2SAT 99
[2023-10-06] MEDS: FUROSEMIDE 40 MG TAB PO SCH (17:30)
[2023-10-06 20:00] VITALS: BP 163/78; PULSE 70; RESP 18; TEMP 98.1; O2SAT 100
[2023-10-06] MEDS ORDERED: DEXTROSE 50% SYRINGE 50 ML IV PRN (23:45)
[2023-10-06] MEDS: INSULIN LISPRO 100 UNIT/1 ML 3ML VIAL SQ ONE (23:57)
[2023-10-07] VITALS (8 sets, daily range): BP systolic 128–158; BP diastolic 55–80; PULSE 64–76; RESP 14–20; TEMP 97.7–98.7; O2SAT 95–99
[2023-10-07 06:43] LABS: ANION GAP 16.7 mmol/L (8-16); CALCIUM 8.7 mg/dL (8.4-10.2); CREATININE, SERUM 4.17 mg/dL (0.57-1.11); POTASSIUM 3.7 mmol/L (3.5-5.1)
[2023-10-07] MEDS: INSULIN LISPRO 100 UNIT/1 ML 3ML VIAL SQ SCH (08:20)
[2023-10-08] VITALS (7 sets, daily range): BP systolic 127–163; BP diastolic 61–83; PULSE 67–75; RESP 16–17; TEMP 97.7–98.4; O2SAT 99–100
[2023-10-08 07:49] LABS: CALCIUM 8.6 mg/dL (8.4-10.2); CREATININE, SERUM 4.29 mg/dL (0.57-1.11); PHOSPHORUS 4.4 MG/DL (2.3-4.7)
[2023-10-08] MEDS: INSULIN LISPRO 100 UNIT/1 ML 3ML VIAL SQ ONE (07:56)
[2023-10-08 08:09] LABS: CHOL/HDL RATIO 2.9 (3.0-3.6)
[2023-10-08] MEDS ORDERED: INSULIN REGULAR, HUMAN 100 UNIT/1 ML SQ ONE (08:15)
[2023-10-08] MEDS ORDERED: ONDANSETRON HCL 4 MG ORAL DISINTEGRATING TAB PO PRN (13:30)
[2023-10-08 16:25] LABS: TROPONIN I 0.487 ng/mL (0-0.300)
[2023-10-08 17:00] LABS: THYROID STIMULATING HORMONE 1.603 uIU/mL (0.350-4.940)
[2023-10-08 17:40] LABS: FREE T4 (FREE THYROXINE) 1.03 ng/dL (0.8-1.8)
[2023-10-08] MEDS ORDERED: INSULIN GLARGINE 100 UNITS/ML VIAL SQ SCH (21:00)
[2023-10-08] MEDS: INSULIN GLARGINE 100 UNITS/ML VIAL SQ SCH (21:39)
[2023-10-09] VITALS (7 sets, daily range): BP systolic 122–167; BP diastolic 61–84; PULSE 63–72; RESP 17–18; TEMP 97.6–98.2; O2SAT 98–100
[2023-10-09 06:51] LABS: ANION GAP 16.1 mmol/L (8-16); CALCIUM 8.5 mg/dL (8.4-10.2); CREATININE, SERUM 4.69 mg/dL (0.57-1.11); POTASSIUM 4.1 mmol/L (3.5-5.1)
[2023-10-09] MEDS: INSULIN LISPRO 100 UNIT/1 ML 3ML VIAL SQ ONE (12:34)
[2023-10-09] MEDS: INSULIN LISPRO 100 UNIT/1 ML 3ML VIAL SQ SCH (17:44)
[2023-10-09] MEDS ORDERED: TOPROL XL50 MG PO (17:58)
[2023-10-09] MEDS ORDERED: ASPIRIN CHEW81 MG PO (17:58)
[2023-10-09] MEDS ORDERED: ATORVASTATIN CA20 MG PO (17:58)
[2023-10-09] MEDS ORDERED: FUROSEMIDE40 MG PO (17:58)
[2023-10-09] MEDS ORDERED: ONDANSETRON ODT4 MG PO (17:58)
[2023-10-09] MEDS ORDERED: NIFEDIPINE ER30 M1 PO (17:58)
[2023-10-09] MEDS ORDERED: INSULIN GLARGINE 100 UNITS/ML VIAL SQ SCH (21:00)
== END 2023-10-09 19:00 | disposition home or self-care (01) | DRG 698 ==
LOC: ER 11:50 → ERHOLD 14:49 → MED/SURG2 16:40
PROVIDERS: ADMIT Internal Medicine; ATTEND Internal Medicine
DX: E11.22 Type 2 diabetes mellitus with diabetic chronic kidney disease (principal); I50.33 Acute on chronic diastolic (congestive) heart failure; I13.2 Hypertensive heart and chronic kidney disease with heart failure and with stage 5 chronic kidney disease, or end stage renal disease; E11.65 Type 2 diabetes mellitus with hyperglycemia; N18.5 Chronic kidney disease, stage 5; R79.89 Other specified abnormal findings of blood chemistry; E11.319 Type 2 diabetes mellitus with unspecified diabetic retinopathy without macular edema; Z79.85 Long-term (current) use of injectable non-insulin antidiabetic drugs; Z79.84 Long term (current) use of oral hypoglycemic drugs; Z71.3 Dietary counseling and surveillance; F41.9 Anxiety disorder, unspecified; E03.9 Hypothyroidism, unspecified; E78.5 Hyperlipidemia, unspecified; Z79.899 Other long term (current) drug therapy; Z11.52 Encounter for screening for COVID-19
CPT/HCPCS: 36415; 70450; 71045; 80048; 80053; 80061; 82550; 82575; 82948; 83036; 83735; 83880; 84100; 84439; 84443; 84484; 85025; 85610; 85730; 87400; 87420; 93005; 99284; J1940; J7030; U0002

== ENCOUNTER 2024-03-11 16:51 | Inpatient (IN) | payer OTHER ==
[~2024-03-11] VITALS: Ht 154.9 cm; Wt 81.2 kg
[~2024-03-11 16:51] MED LIST changes: +ALPRAZOLAM0.5 MG PO; +ATORVASTATIN CA20 MG PO; +FUROSEMIDE40 MG PO; +LOSARTAN POTASS25 MG PO; +METOPROLOL SUC100 MG; +NIFEDIPINE ER30 M1 PO; +ONDANSETRON ODT4 MG PO; +TOPROL XL50 MG PO
[2024-03-11 17:35] VITALS: TEMP 98.4
[2024-03-11 17:56] LABS: BASOPHILS % 0.4 % (0.0-1.0); EOSINOPHILS # (AUTO) 0.2 (0.0-0.4); EOSINOPHILS % 3.4 % (0.0-6.0); HEMOGLOBIN 7.5 g/dL (12.0-16.0); LYMPHOCYTES # (AUTO) 0.9 (1.0-3.2); LYMPHOCYTES % 17.4 % (18.0-39.1); MEAN CORPUSCULAR HEMOGLOBIN 26.8 pg (28-32); MEAN CORPUSCULAR VOLUME 89.3 fL (81-99); MONOCYTES # (AUTO) 0.6 (0.2-0.8); MONOCYTES % 11.4 % (4.4-11.3); NEUTROPHILS # (AUTO) 3.6 (2.1-6.9); NEUTROPHILS % 66.8 % (38.7-80.0); PLATELET COUNT 166 x10e3/uL (140-360); RED CELL DISTRIBUTION WIDTH 14.9 % (11.7-14.4); WHITE BLOOD COUNT 5.35 x10e3/uL (4.8-10.8)
[2024-03-11 18:04] LABS: INR 0.88; PROTHROMBIN TIME 12.6 seconds (11.9-14.5)
[2024-03-11 18:06] LABS: PARTIAL THROMBOPLASTIN TIME 28.3 seconds (23.8-35.5)
[2024-03-11 18:13] LABS: ALBUMIN 2.9 g/dL (3.5-5.0); ANION GAP 14.1 mmol/L (8-16); BILIRUBIN,TOTAL 0.3 mg/dL (0.2-1.2); CALCIUM 8.2 mg/dL (8.4-10.2); CREATININE, SERUM 4.08 mg/dL (0.57-1.11); MAGNESIUM 2.4 MG/DL (1.3-2.1); POTASSIUM 4.1 mmol/L (3.5-5.1); TOTAL PROTEIN 5.9 g/dL (6.5-8.1)
[2024-03-11 18:24] LABS: TROPONIN I 0.064 ng/mL (0-0.300)
[2024-03-11] MEDS: DIAZEPAM INJ 5 MG/ML 2 ML IV ONE (19:14)
[2024-03-11] MEDS: SODIUM CHLORIDE 0.9% 1000ML 500 ML IV STA (19:14)
[2024-03-11] MEDS: CLONIDINE HCL 0.1 MG TAB PO ONE (19:15)
[2024-03-11 19:30] VITALS: RESP 14
[2024-03-11 19:52] LABS: BILIRUBIN,URINE NEGATIVE (NEGATIVE); CLARITY,URINE CLEAR (CLEAR); COLOR,URINE YELLOW (YELLOW); GLUCOSE, URINE 500 (NEGATIVE); KETONES,URINE NEGATIVE (NEGATIVE); LEUKOCYTE ESTERASE ,URINE NEGATIVE (NEGATIVE); NITRITE,URINE NEGATIVE (NEGATIVE); PH,URINE 6.5 (5 - 7); PROTEIN,URINE DIPSTICK 2+ (NEGATIVE); URINE UROBILINOGEN 0.2 mg/dL (0.2 - 1)
[2024-03-11 20:03] LABS: EPITHELIAL CELLS,URINE MANY /LPF
[2024-03-11] MEDS: HYDRALAZINE HCL 20 MG/ML VIAL IV STA (20:21)
[2024-03-11] MEDS ORDERED: SODIUM CHLORIDE FLUSH 10 ML SYR INJ PRN (20:45)
[2024-03-11] MEDS ORDERED: ONDANSETRON HCL INJ 2MG/ML 2ML 2 MG/ML VIAL IV PRN (20:45)
[2024-03-11] MEDS ORDERED: Morphine 4mg INJECTION 4 MG/ML INJ IV PRN (20:45)
[2024-03-11 21:00] VITALS: PULSE 80
[2024-03-11 22:01] VITALS: PULSE 88; RESP 16; O2SAT 98
[2024-03-11 23:00] VITALS: BP 177/84; PULSE 85; RESP 18; TEMP 97.3; O2SAT 98
[2024-03-11] MEDS ORDERED: DEXTROSE 50% SYRINGE 50 ML IV PRN (23:30)
[2024-03-11] MEDS ORDERED: POLYETHYLENE GLYCOL 3350 17 GM PACK PO PRN (23:45)
[2024-03-12] VITALS (9 sets, daily range): BP systolic 131–177; BP diastolic 58–84; PULSE 74–97; RESP 17–21; TEMP 97.3–99.1; O2SAT 96–100
[2024-03-12] MEDS ORDERED: ASPIRIN EC81 MG PO (00:33)
[2024-03-12] MEDS ORDERED: JARDIANCE25 MG PO (00:33)
[2024-03-12] MEDS ORDERED: TRAZODONE HCL50 MG PO (00:33)
[2024-03-12] MEDS ORDERED: MONTELUKAST SOD10 MG PO (00:33)
[2024-03-12] MEDS ORDERED: POTASSIUM CITR10 MEQ PO (00:33)
[2024-03-12] MEDS ORDERED: FUROSEMIDE40 MG PO (00:33)
[2024-03-12] MEDS ORDERED: LEVOTHYROXINE112 MCG PO (00:33)
[2024-03-12] MEDS: ACETAMINOPHEN 325 MG TAB PO PRN (01:43)
[2024-03-12] MEDS: LORAZEPAM INJ 2 MG/ML VIAL IV STA ×2 (01:44→01:47)
[2024-03-12] MEDS: HYDRALAZINE HCL 20 MG/ML VIAL IV PRN (01:44)
[2024-03-12 02:36] LABS: TROPONIN I 0.056 ng/mL (0-0.300)
[2024-03-12] MEDS: FUROSEMIDE 40 MG TAB PO SCH (05:35)
[2024-03-12] MEDS ORDERED: FUROSEMIDE 40 MG TAB PO SCH (06:00)
[2024-03-12] MEDS ORDERED: NIFEDIPINE CR 30 MG TAB PO SCH (06:00)
[2024-03-12 06:05] LABS: BASOPHILS % 0.2 % (0.0-1.0); EOSINOPHILS # (AUTO) 0.2 (0.0-0.4); EOSINOPHILS % 3.7 % (0.0-6.0); LYMPHOCYTES # (AUTO) 0.9 (1.0-3.2); MEAN CORPUSCULAR HEMOGLOBIN 26.6 pg (28-32); MEAN CORPUSCULAR HGB CONC 30.2 g/dL (31-35); MEAN CORPUSCULAR VOLUME 88.1 fL (81-99); MONOCYTES # (AUTO) 0.6 (0.2-0.8); MONOCYTES % 11.4 % (4.4-11.3); NEUTROPHILS # (AUTO) 3.6 (2.1-6.9); NEUTROPHILS % 67.1 % (38.7-80.0); PLATELET COUNT 152 x10e3/uL (140-360); RED BLOOD COUNT 2.52 x10e6/uL (3.6-5.1); RED CELL DISTRIBUTION WIDTH 14.9 % (11.7-14.4); WHITE BLOOD COUNT 5.36 x10e3/uL (4.8-10.8)
[2024-03-12 06:27] LABS: ALBUMIN 2.5 g/dL (3.5-5.0); ALBUMIN/GLOBULIN RATIO 0.9 (0.8-2.0); ANION GAP 14.6 mmol/L (8-16); BILIRUBIN,TOTAL 0.3 mg/dL (0.2-1.2); CREATININE, SERUM 4.16 mg/dL (0.57-1.11); POTASSIUM 3.6 mmol/L (3.5-5.1); TOTAL PROTEIN 5.3 g/dL (6.5-8.1)
[2024-03-12 06:38] LABS: HEMATOCRIT 22.2 % (34.2-44.1); HEMOGLOBIN 6.7 g/dL (12.0-16.0)
[2024-03-12 07:09] LABS: TROPONIN I 0.059 ng/mL (0-0.300)
[2024-03-12] MEDS ORDERED: LEVOTHYROXINE SODIUM 75 MCG TAB PO SCH (07:30)
[2024-03-12] MEDS: LEVOTHYROXINE SODIUM 125 MCG TAB PO SCH (09:21)
[2024-03-12] MEDS: LOSARTAN POTASSIUM 25 MG TAB PO SCH (09:21)
[2024-03-12] MEDS: PANTOPRAZOLE SOD 40 MG TABEC PO SCH (09:21)
[2024-03-12] MEDS: MONTELUKAST SODIUM 10 MG TAB PO SCH (09:21)
[2024-03-12] MEDS: ASPIRIN 81 MG CHEW TAB PO SCH (09:21)
[2024-03-12] MEDS: ATORVASTATIN 40 MG TAB PO SCH (09:21)
[2024-03-12] MEDS: INSULIN REGULAR, HUMAN 100 UNIT/1 ML SQ SCH (09:27)
[2024-03-12 09:39] LABS: FERRITIN 34.89 ng/mL (4.63-204.00)
[2024-03-12 09:52] LABS: FOLATE 5.6 ng/mL (7.0-15.4)
[2024-03-12 14:02] LABS: TROPONIN I 0.146 ng/mL (0-0.300)
[2024-03-12] MEDS: SODIUM CHLORIDE 0.9% 250ML 250 ML IV ONE (19:18)
[2024-03-12] MEDS ORDERED: ALPRAZOLAM 0.5 MG TAB PO SCH (21:00)
[2024-03-12] MEDS: IRON SUCROSE 100 MG in SODIUM CHLORIDE 0.9% 100 ML IV SCH (21:30)
[2024-03-12] MEDS: FOLIC ACID 1 MG TAB PO SCH (21:48)
[2024-03-12] MEDS: ALPRAZOLAM 0.5 MG TAB PO PRN (22:00)
[2024-03-13] VITALS (9 sets, daily range): BP systolic 120–185; BP diastolic 59–71; PULSE 73–98; RESP 14–20; TEMP 97.8–98.8; O2SAT 96–100
[2024-03-13 05:52] LABS: BASOPHILS % 0.2 % (0.0-1.0); EOSINOPHILS # (AUTO) 0.2 (0.0-0.4); EOSINOPHILS % 3.9 % (0.0-6.0); HEMOGLOBIN 6.7 g/dL (12.0-16.0); LYMPHOCYTES # (AUTO) 1.3 (1.0-3.2); LYMPHOCYTES % 23.3 % (18.0-39.1); MEAN CORPUSCULAR HEMOGLOBIN 26.6 pg (28-32); MEAN CORPUSCULAR HGB CONC 29.8 g/dL (31-35); MEAN CORPUSCULAR VOLUME 89.3 fL (81-99); MONOCYTES # (AUTO) 0.8 (0.2-0.8); MONOCYTES % 13.8 % (4.4-11.3); NEUTROPHILS # (AUTO) 3.3 (2.1-6.9); NEUTROPHILS % 58.6 % (38.7-80.0); PLATELET COUNT 166 x10e3/uL (140-360); RED BLOOD COUNT 2.52 x10e6/uL (3.6-5.1); RED CELL DISTRIBUTION WIDTH 15.1 % (11.7-14.4); WHITE BLOOD COUNT 5.57 x10e3/uL (4.8-10.8)
[2024-03-13 06:04] LABS: HEMATOCRIT 22.5 % (34.2-44.1)
[2024-03-13 06:42] LABS: ANION GAP 16.9 mmol/L (8-16); CALCIUM 7.8 mg/dL (8.4-10.2); CREATININE, SERUM 4.63 mg/dL (0.57-1.11); MAGNESIUM 2.3 MG/DL (1.3-2.1); POTASSIUM 3.9 mmol/L (3.5-5.1)
[2024-03-13] MEDS: ASCORBIC ACID 500 MG TAB PO SCH (08:09)
[2024-03-13] MEDS: AMLODIPINE BESYLATE 10 MG TAB PO SCH (16:40)
[2024-03-13] MEDS: EPOETIN ALFA-EPBX 10,000 UNIT/ML VIAL SC SCH (18:35)
[2024-03-14] VITALS (10 sets, daily range): BP systolic 125–174; BP diastolic 61–87; PULSE 77–99; RESP 17–20; TEMP 97.9–98.7; O2SAT 96–100
[2024-03-14 07:06] LABS: BASOPHILS % 0.2 % (0.0-1.0); EOSINOPHILS # (AUTO) 0.3 (0.0-0.4); EOSINOPHILS % 4.4 % (0.0-6.0); LYMPHOCYTES # (AUTO) 1.2 (1.0-3.2); LYMPHOCYTES % 20.6 % (18.0-39.1); MEAN CORPUSCULAR HEMOGLOBIN 26.3 pg (28-32); MEAN CORPUSCULAR HGB CONC 29.7 g/dL (31-35); MEAN CORPUSCULAR VOLUME 88.4 fL (81-99); MONOCYTES # (AUTO) 0.9 (0.2-0.8); MONOCYTES % 14.6 % (4.4-11.3); NEUTROPHILS # (AUTO) 3.6 (2.1-6.9); NEUTROPHILS % 59.9 % (38.7-80.0); PLATELET COUNT 195 x10e3/uL (140-360); RED BLOOD COUNT 2.51 x10e6/uL (3.6-5.1); RED CELL DISTRIBUTION WIDTH 15.1 % (11.7-14.4); WHITE BLOOD COUNT 5.97 x10e3/uL (4.8-10.8)
[2024-03-14 07:10] LABS: HEMATOCRIT 22.2 % (34.2-44.1); HEMOGLOBIN 6.6 g/dL (12.0-16.0)
[2024-03-14 07:40] LABS: ANION GAP 14.6 mmol/L (8-16); CALCIUM 8.3 mg/dL (8.4-10.2); CREATININE, SERUM 4.94 mg/dL (0.57-1.11); POTASSIUM 3.6 mmol/L (3.5-5.1)
[2024-03-14] MEDS ORDERED: ONDANSETRON HCL 4 MG ORAL DISINTEGRATING TAB PO PRN (11:30)
[2024-03-14] MEDS: ONDANSETRON HCL INJ 2MG/ML 2ML 2 MG/ML VIAL IV PRN (19:51)
[2024-03-14] MEDS: TRAZODONE HCL 50 MG TAB PO PRN (20:59)
[2024-03-14 21:52] LABS: BILIRUBIN,URINE NEGATIVE (NEGATIVE); CLARITY,URINE CLEAR (CLEAR); COLOR,URINE YELLOW (YELLOW); GLUCOSE, URINE 500 (NEGATIVE); KETONES,URINE NEGATIVE (NEGATIVE); LEUKOCYTE ESTERASE ,URINE NEGATIVE (NEGATIVE); NITRITE,URINE NEGATIVE (NEGATIVE); PH,URINE 5.5 (5 - 7); PROTEIN,URINE DIPSTICK 2+ (NEGATIVE); URINE UROBILINOGEN 0.2 mg/dL (0.2 - 1)
[2024-03-14 22:16] LABS: BACTERIA,URINE MODERATE /HPF; EPITHELIAL CELLS,URINE MODERATE /LPF; RBC,URINE 0-5 /HPF (0-5); WBC,URINE (MAN) 0-5 /HPF (0-5)
[2024-03-14 23:21] LABS: CREATININE,URINE RANDOM 26.16 mg/dL (47-110); SODIUM,URINE 39 mmol/L; TOTAL PROTEIN, URINE 70.8 mg/dL (1-14)
[2024-03-15] VITALS (9 sets, daily range): BP systolic 126–196; BP diastolic 57–85; PULSE 81–102; RESP 16–20; TEMP 97.4–98.6; O2SAT 96–100
[2024-03-15 07:44] LABS: ANION GAP 15.8 mmol/L (8-16); CALCIUM 8.1 mg/dL (8.4-10.2); CREATININE, SERUM 4.72 mg/dL (0.57-1.11); POTASSIUM 3.8 mmol/L (3.5-5.1)
[2024-03-15] MEDS: METOPROLOL SUCCINATE 25 MG TAB XL PO SCH (08:35)
[2024-03-15 10:04] LABS: HEMATOCRIT 19.1 % (34.2-44.1); HEMOGLOBIN 5.8 g/dL (12.0-16.0)
[2024-03-15] MEDS ORDERED: SODIUM CHLORIDE 0.9% 250ML 250 ML IV ONE ×2 (10:30→11:45)
[2024-03-15] MEDS: INSULIN GLARGINE 100 UNITS/ML VIAL SQ SCH (21:00)
[2024-03-15] MEDS ORDERED: INSULIN GLARGINE 100 UNITS/ML VIAL SQ SCH (21:00)
[2024-03-15] MEDS: INSULIN GLARGINE 100 UNITS/ML VIAL SQ ONE (21:53)
[2024-03-16] VITALS (10 sets, daily range): BP systolic 138–161; BP diastolic 62–78; PULSE 70–93; RESP 16–18; TEMP 98.1–98.7; O2SAT 95–100
[2024-03-16 00:19] LABS: HEMATOCRIT 25.7 % (34.2-44.1); HEMOGLOBIN 8.4 g/dL (12.0-16.0)
[2024-03-16 09:02] LABS: BASOPHILS # (AUTO) 0.1 (0.0-0.1); BASOPHILS % 0.9 % (0.0-1.0); EOSINOPHILS # (AUTO) 0.3 (0.0-0.4); EOSINOPHILS % 3.8 % (0.0-6.0); HEMATOCRIT 29.4 % (34.2-44.1); HEMOGLOBIN 9.3 g/dL (12.0-16.0); LYMPHOCYTES # (AUTO) 1.6 (1.0-3.2); LYMPHOCYTES % 19.4 % (18.0-39.1); MEAN CORPUSCULAR HEMOGLOBIN 28.2 pg (28-32); MEAN CORPUSCULAR HGB CONC 31.6 g/dL (31-35); MEAN CORPUSCULAR VOLUME 89.1 fL (81-99); MONOCYTES # (AUTO) 0.9 (0.2-0.8); MONOCYTES % 11.2 % (4.4-11.3); NEUTROPHILS # (AUTO) 5.1 (2.1-6.9); NEUTROPHILS % 64.2 % (38.7-80.0); PLATELET COUNT 194 x10e3/uL (140-360); RED CELL DISTRIBUTION WIDTH 16.1 % (11.7-14.4); WHITE BLOOD COUNT 7.98 x10e3/uL (4.8-10.8)
[2024-03-16 09:16] LABS: CALCIUM 8.3 mg/dL (8.4-10.2); CREATININE, SERUM 4.72 mg/dL (0.57-1.11); MAGNESIUM 2.2 MG/DL (1.3-2.1)
[2024-03-16] MEDS: INSULIN REGULAR, HUMAN 100 UNIT/1 ML SQ SCH (12:21)
[2024-03-16] MEDS ORDERED: INSULIN GLARGINE 100 UNITS/ML VIAL SQ SCH (21:00)
[2024-03-16] MEDS: INSULIN GLARGINE 100 UNITS/ML VIAL SQ SCH (21:05)
[2024-03-17] VITALS: BP 144/72; PULSE 80; RESP 18; TEMP 97.7; O2SAT 100
[2024-03-17 04:00] VITALS: BP 151/70; PULSE 81; RESP 18; TEMP 97.8; O2SAT 96
[2024-03-17 08:00] VITALS: BP 184/86; PULSE 71; RESP 20; TEMP 97.6; O2SAT 100
[2024-03-17 08:20] VITALS: BP 184/86; PULSE 71; RESP 20; TEMP 97.6; O2SAT 100
[2024-03-17] MEDS: FERROUS SULFATE 325 MG TAB PO SCH (08:48)
[2024-03-17 09:41] VITALS: PULSE 76; RESP 18; O2SAT 97
[2024-03-17 12:11] VITALS: BP 164/74; PULSE 81; RESP 18; TEMP 98.1; O2SAT 99
[2024-03-17] MEDS ORDERED: TOPROL XL25 MG PO (13:04)
[2024-03-17] MEDS ORDERED: NORVASC10 MG PO (13:04)
[2024-03-17] MEDS ORDERED: Insulin Glargine SQ (13:06)
== END 2024-03-17 14:08 | disposition home or self-care (01) | DRG 812 ==
LOC: ER 17:10 → ERHOLD 20:41 → MED/SURG3 22:24 → UNDODISIN 03-17 13:37
PROVIDERS: ADMIT Internal Medicine; ATTEND Internal Medicine
PROC: 30233N1 Transfusion of Nonautologous Red Blood Cells into Peripheral Vein, Percutaneous Approach (ICD-10-PCS; principal; 2024-03-15)
DX: D50.9 Iron deficiency anemia, unspecified (principal); I13.2 Hypertensive heart and chronic kidney disease with heart failure and with stage 5 chronic kidney disease, or end stage renal disease; I50.32 Chronic diastolic (congestive) heart failure; E11.22 Type 2 diabetes mellitus with diabetic chronic kidney disease; N18.5 Chronic kidney disease, stage 5; R42 Dizziness and giddiness; I16.0 Hypertensive urgency; E11.65 Type 2 diabetes mellitus with hyperglycemia; E11.319 Type 2 diabetes mellitus with unspecified diabetic retinopathy without macular edema; E11.42 Type 2 diabetes mellitus with diabetic polyneuropathy; D63.1 Anemia in chronic kidney disease; I25.10 Atherosclerotic heart disease of native coronary artery without angina pectoris; E03.9 Hypothyroidism, unspecified; M19.90 Unspecified osteoarthritis, unspecified site; F41.9 Anxiety disorder, unspecified; Z11.52 Encounter for screening for COVID-19; I48.91 Unspecified atrial fibrillation; Z79.82 Long term (current) use of aspirin; Z79.890 Hormone replacement therapy; Z79.84 Long term (current) use of oral hypoglycemic drugs; Z90.49 Acquired absence of other specified parts of digestive tract; Z90.710 Acquired absence of both cervix and uterus; Z88.8 Allergy status to other drugs, medicaments and biological substances; Z82.49 Family history of ischemic heart disease and other diseases of the circulatory system
CPT/HCPCS: 36415; 70450; 71045; 76770; 80048; 80053; 81001; 82270; 82550; 82570; 82607; 82728; 82746; 82948; 83540; 83690; 83735; 83880; 84156; 84300; 84466; 84484; 85014; 85018; 85025; 85045; 85610; 85730; 86850; 86870; 86880; 86900; 86905; 86920; 86922; 87086; 87400; 93005; 94799; 99001; 99284; J0360; J1756; J1815; J2060; J2405; J3360; J7030; J7050; P9016; U0002

== ENCOUNTER 2024-05-31 23:13 | Inpatient (IN) | payer OTHER ==
[~2024-05-31] VITALS: Ht 180.3 cm; Wt 84.9 kg
[~2024-05-31 23:13] MED LIST changes: +ASPIRIN EC81 MG PO; +JARDIANCE25 MG PO; +LEVOTHYROXINE112 MCG PO; +MONTELUKAST SOD10 MG PO; +NORVASC10 MG PO; +POTASSIUM CITR10 MEQ PO; +TOPROL XL25 MG PO; +TRAZODONE HCL50 MG PO
[2024-05-31 23:17] VITALS: TEMP 98
[2024-05-31] MEDS ORDERED: FUROSEMIDE INJ 10 MG/ML 2 ML VIAL ONE (23:31)
[2024-05-31] MEDS: FUROSEMIDE INJ 10 MG/ML 4 ML VIAL IV STA (23:37)
[2024-05-31] MEDS: HYDRALAZINE HCL 20 MG/ML VIAL IV STA (23:38)
[2024-05-31 23:41] LABS: BASOPHILS # (AUTO) 0.1 (0.0-0.1); BASOPHILS % 1.6 % (0.0-1.0); EOSINOPHILS # (AUTO) 0.3 (0.0-0.4); HEMATOCRIT 33.8 % (34.2-44.1); HEMOGLOBIN 10.1 g/dL (12.0-16.0); LYMPHOCYTES # (AUTO) 1.2 (1.0-3.2); LYMPHOCYTES % 15.4 % (18.0-39.1); MEAN CORPUSCULAR HEMOGLOBIN 25.8 pg (28-32); MEAN CORPUSCULAR HGB CONC 29.9 g/dL (31-35); MEAN CORPUSCULAR VOLUME 86.4 fL (81-99); MONOCYTES # (AUTO) 0.8 (0.2-0.8); MONOCYTES % 10.2 % (4.4-11.3); NEUTROPHILS # (AUTO) 5.3 (2.1-6.9); NEUTROPHILS % 68.5 % (38.7-80.0); PLATELET COUNT 196 x10e3/uL (140-360); RED BLOOD COUNT 3.91 x10e6/uL (3.6-5.1); RED CELL DISTRIBUTION WIDTH 15.3 % (11.7-14.4); WHITE BLOOD COUNT 7.66 x10e3/uL (4.8-10.8)
[2024-05-31 23:55] LABS: ALBUMIN 2.2 g/dL (3.5-5.0); ALBUMIN/GLOBULIN RATIO 0.6 (0.8-2.0); ANION GAP 17.2 mmol/L (8-16); BILIRUBIN,TOTAL 0.4 mg/dL (0.2-1.2); CALCIUM 7.8 mg/dL (8.4-10.2); CREATININE, SERUM 6.58 mg/dL (0.57-1.11); TOTAL PROTEIN 5.9 g/dL (6.5-8.1)
[2024-05-31 23:56] LABS: POTASSIUM 3.2 mmol/L (3.5-5.1)
[2024-06-01] VITALS (8 sets, daily range): BP systolic 145–168; BP diastolic 80–94; PULSE 79–92; RESP 17–19; TEMP 97.3–98.6; O2SAT 96–100
[2024-06-01 00:02] LABS: TROPONIN I 0.116 ng/mL (0-0.300)
[2024-06-01] MEDS: ONDANSETRON HCL INJ 2MG/ML 2ML 2 MG/ML VIAL IV PRN (01:00)
[2024-06-01] MEDS: GABAPENTIN 100 MG CAP PO SCH (01:00)
[2024-06-01] MEDS ORDERED: SODIUM CHLORIDE FLUSH 10 ML SYR INJ PRN (01:00)
[2024-06-01] MEDS: Morphine 2mg Syringe 2 MG/ML SYR IV PRN (01:01)
[2024-06-01] MEDS ORDERED: GABAPENTIN 100 MG CAP ONE (01:02)
[2024-06-01] MEDS: HYDRALAZINE HCL 20 MG/ML VIAL IV STA (01:30)
[2024-06-01] MEDS ORDERED: VITAMIN D350 MC1 PO (03:56)
[2024-06-01] MEDS ORDERED: COQ-10100 MG PO (04:00)
[2024-06-01 06:19] LABS: TROPONIN I 0.106 ng/mL (0-0.300)
[2024-06-01] MEDS: FUROSEMIDE INJ 10 MG/ML 4 ML VIAL IV SCH (08:53)
[2024-06-01] MEDS: ASPIRIN 81 MG ENTERIC COATED PO SCH (10:16)
[2024-06-01] MEDS: AMLODIPINE BESYLATE 10 MG TAB PO SCH (10:17)
[2024-06-01] MEDS: METOPROLOL SUCCINATE 25 MG TAB XL PO SCH (10:17)
[2024-06-01] MEDS: LEVOTHYROXINE SODIUM 125 MCG TAB PO SCH (10:42)
[2024-06-01] MEDS: POTASSIUM CHLORIDE 20 MEQ TAB CR PO ONE (15:33)
[2024-06-01 16:04] LABS: TROPONIN I 0.112 ng/mL (0-0.300)
[2024-06-01] MEDS: SODIUM BICARBONATE 650 MG TAB PO SCH (16:53)
[2024-06-02] VITALS (8 sets, daily range): BP systolic 129–161; BP diastolic 68–88; PULSE 73–90; RESP 18–20; TEMP 97.9–99.4; O2SAT 100
[2024-06-02 05:58] LABS: BASOPHILS % 0.8 % (0.0-1.0); EOSINOPHILS # (AUTO) 0.3 (0.0-0.4); EOSINOPHILS % 5.9 % (0.0-6.0); HEMOGLOBIN 8.5 g/dL (12.0-16.0); LYMPHOCYTES # (AUTO) 1.1 (1.0-3.2); LYMPHOCYTES % 20.2 % (18.0-39.1); MEAN CORPUSCULAR HEMOGLOBIN 25.8 pg (28-32); MEAN CORPUSCULAR HGB CONC 29.3 g/dL (31-35); MEAN CORPUSCULAR VOLUME 88.1 fL (81-99); MONOCYTES # (AUTO) 0.8 (0.2-0.8); MONOCYTES % 15.8 % (4.4-11.3); NEUTROPHILS % 56.9 % (38.7-80.0); PLATELET COUNT 163 x10e3/uL (140-360); RED BLOOD COUNT 3.29 x10e6/uL (3.6-5.1); RED CELL DISTRIBUTION WIDTH 15.5 % (11.7-14.4); WHITE BLOOD COUNT 5.24 x10e3/uL (4.8-10.8)
[2024-06-02 06:31] LABS: ALBUMIN 1.9 g/dL (3.5-5.0); ALBUMIN/GLOBULIN RATIO 0.6 (0.8-2.0); ANION GAP 16.3 mmol/L (8-16); BILIRUBIN,TOTAL 0.3 mg/dL (0.2-1.2); CREATININE, SERUM 7.64 mg/dL (0.57-1.11); TOTAL PROTEIN 4.9 g/dL (6.5-8.1)
[2024-06-02 06:35] LABS: POTASSIUM 3.3 mmol/L (3.5-5.1)
[2024-06-02 06:36] LABS: CALCIUM 6.8 mg/dL (8.4-10.2)
[2024-06-02 07:00] LABS: TROPONIN I 0.126 ng/mL (0-0.300)
[2024-06-02] MEDS: CALCIUM CARBONATE 500 MG CHEWABLE TABS PO SCH (16:03)
[2024-06-02] MEDS: POTASSIUM CHLORIDE 20 MEQ TAB CR PO ONE (16:03)
[2024-06-02] MEDS ORDERED: LANTUS 3ML100 UNITS/ SQ (16:58)
[2024-06-02] MEDS ORDERED: DEXTROSE 50% SYRINGE 50 ML IV PRN (18:00)
[2024-06-02] MEDS: INSULIN LISPRO 100 UNIT/1 ML 3ML VIAL SQ SCH (21:51)
[2024-06-02] MEDS: ALPRAZOLAM 0.5 MG TAB PO PRN (22:29)
[2024-06-03 00:12] VITALS: BP 132/75; PULSE 78; RESP 19; TEMP 98.9; O2SAT 100
[2024-06-03 04:00] VITALS: BP 155/96; PULSE 74; RESP 18; TEMP 98.2; O2SAT 100
[2024-06-03 05:50] LABS: ANION GAP 15.8 mmol/L (8-16); CREATININE, SERUM 8.24 mg/dL (0.57-1.11); PHOSPHORUS 7.2 MG/DL (2.3-4.7); POTASSIUM 3.8 mmol/L (3.5-5.1)
[2024-06-03 05:51] LABS: CALCIUM 6.8 mg/dL (8.4-10.2)
[2024-06-03 09:00] VITALS: BP 150/91; PULSE 72; RESP 17; TEMP 97.8; O2SAT 99
[2024-06-03] MEDS: POTASSIUM CHLORIDE 20 MEQ TAB CR PO SCH (09:00)
[2024-06-03 11:55] LABS: INR 0.9; PROTHROMBIN TIME 12.6 seconds (11.9-14.5)
[2024-06-03] MEDS: HYDRALAZINE HCL 20 MG/ML VIAL IV PRN (12:07)
[2024-06-03] MEDS ORDERED: FENTANYL CITRATE/PF 100MCG/2 ML INJ ONE (14:04)
[2024-06-03] MEDS ORDERED: MIDAZOLAM HCL 2 MG/2 ML VIAL ONE (14:04)
[2024-06-03] MEDS ORDERED: HEPARIN SOD (PORCINE) 1000 UNIT/ML SDV ONE (14:04)
[2024-06-03] MEDS ORDERED: SODIUM CHLORIDE 0.9% 250ML 250 ML ONE (14:05)
[2024-06-03] MEDS ORDERED: LIDOCAINE HCL 1% LOCAL INJ 20 ML VIAL ONE (14:21)
[2024-06-03] MEDS ORDERED: SODIUM CHLORIDE 0.9% 500ML 500 ML ONE (14:22)
[2024-06-03 15:30] VITALS: BP 184/93
[2024-06-03] MEDS: SEVELAMER CARBONATE 800 MG TAB PO SCH (17:00)
[2024-06-03] MEDS ORDERED: MANNITOL 25% 12.5GM/50 ML VIAL IV PRN (18:00)
[2024-06-03 20:34] VITALS: BP 182/79; PULSE 81; RESP 18; TEMP 97.9; O2SAT 100
[2024-06-03] MEDS: LISINOPRIL 10 MG TAB PO ONE (20:53)
[2024-06-03 21:30] VITALS: BP 182/79; PULSE 81; RESP 18; TEMP 97.9; O2SAT 100
[2024-06-04] VITALS (8 sets, daily range): BP systolic 142–174; BP diastolic 71–90; PULSE 76–92; RESP 17–22; TEMP 97.8–98.9; O2SAT 100
[2024-06-04 06:15] LABS: BASOPHILS % 0.9 % (0.0-1.0); EOSINOPHILS # (AUTO) 0.2 (0.0-0.4); EOSINOPHILS % 3.9 % (0.0-6.0); HEMOGLOBIN 8.3 g/dL (12.0-16.0); LYMPHOCYTES # (AUTO) 0.6 (1.0-3.2); LYMPHOCYTES % 12.1 % (18.0-39.1); MEAN CORPUSCULAR HEMOGLOBIN 25.2 pg (28-32); MEAN CORPUSCULAR HGB CONC 28.6 g/dL (31-35); MEAN CORPUSCULAR VOLUME 87.9 fL (81-99); MONOCYTES # (AUTO) 0.6 (0.2-0.8); MONOCYTES % 13.2 % (4.4-11.3); NEUTROPHILS # (AUTO) 3.2 (2.1-6.9); NEUTROPHILS % 69.5 % (38.7-80.0); PLATELET COUNT 142 x10e3/uL (140-360); RED CELL DISTRIBUTION WIDTH 15.4 % (11.7-14.4); WHITE BLOOD COUNT 4.62 x10e3/uL (4.8-10.8)
[2024-06-04 06:40] LABS: ANION GAP 15.4 mmol/L (8-16); CALCIUM 7.3 mg/dL (8.4-10.2); CREATININE, SERUM 6.04 mg/dL (0.57-1.11)
[2024-06-04 06:49] LABS: POTASSIUM 3.4 mmol/L (3.5-5.1)
[2024-06-04] MEDS: LISINOPRIL 10 MG TAB PO SCH (08:51)
[2024-06-04 10:06] LABS: HEPATITIS B SURFACE AG (P) NON-REACTIVE
[2024-06-05] VITALS (10 sets, daily range): BP systolic 136–197; BP diastolic 67–79; PULSE 74–95; RESP 17–20; TEMP 97.6–99.1; O2SAT 93–100
[2024-06-05 05:58] LABS: CALCIUM 7.8 mg/dL (8.4-10.2); CREATININE, SERUM 5.1 mg/dL (0.57-1.11)
[2024-06-05] MEDS: HEPARIN SOD (PORCINE) 1000 UNIT/ML SDV IV PRN (10:51)
[2024-06-05] MEDS: SODIUM CHLORIDE 0.9% 1000ML 2,000 ML IV PRN (10:52)
[2024-06-06] VITALS (9 sets, daily range): BP systolic 140–174; BP diastolic 73–79; PULSE 77–95; RESP 16–21; TEMP 97.5–99.3; O2SAT 96–100
[2024-06-06 06:19] LABS: ANION GAP 12.3 mmol/L (8-16); CALCIUM 8.4 mg/dL (8.4-10.2); CREATININE, SERUM 4.05 mg/dL (0.57-1.11); POTASSIUM 4.3 mmol/L (3.5-5.1)
[2024-06-06] MEDS ORDERED: BUPIVACAINE HCL 0.5% INJ 30 ML VIAL INJ ONE (08:25)
[2024-06-06] MEDS ORDERED: HYDROCODONE/APAP 5MG-325MG TAB PO PRN (09:30)
[2024-06-06] MEDS ORDERED: FENTANYL CITRATE/PF 100MCG/2 ML INJ ONE (11:39)
[2024-06-06] MEDS ORDERED: MIDAZOLAM HCL 2 MG/2 ML VIAL ONE (11:39)
[2024-06-06] MEDS ORDERED: PROPOFOL IV EMULSION 10 MG/ML 20 ML VIAL ONE (17:03)
[2024-06-06] MEDS ORDERED: SUGAMMADEX SODIUM 200 MG/2 ML VIAL IV ONE (17:03)
[2024-06-06] MEDS ORDERED: EPHEDRINE SULFATE INJ 50 MG/ML VIAL ONE (17:03)
[2024-06-06] MEDS ORDERED: ACETAMINOPHEN 1000 MG/100 ML IV ONE (17:03)
[2024-06-06] MEDS ORDERED: METOCLOPRAMIDE HCL 10 MG/2ML VIAL ONE (17:03)
[2024-06-06] MEDS ORDERED: ONDANSETRON HCL INJ 2MG/ML 2ML 2 MG/ML VIAL ONE (17:03)
[2024-06-06] MEDS ORDERED: ROCURONIUM BROMIDE 10 MG/ML 5ML VIAL IV ONE (17:03)
[2024-06-06] MEDS ORDERED: SEVOFLURANE INHAL SOLN 250 ML PEN BTL ONE (17:03)
[2024-06-06] MEDS ORDERED: LIDOCAINE HCL 2% LOCAL INJ 5 ML SDV VIAL INJ ONE (17:03)
[2024-06-07] VITALS (8 sets, daily range): BP systolic 132–157; BP diastolic 69–79; PULSE 75–87; RESP 16–22; TEMP 97.6–98.9; O2SAT 97–100
[2024-06-07 06:24] LABS: ANION GAP 14.1 mmol/L (8-16); CALCIUM 8.1 mg/dL (8.4-10.2); CREATININE, SERUM 5.82 mg/dL (0.57-1.11); POTASSIUM 5.1 mmol/L (3.5-5.1)
[2024-06-07] MEDS ORDERED: SODIUM BICARBO650 MG PO (11:40)
[2024-06-07] MEDS ORDERED: FUROSEMIDE80 MG PO (11:40)
[2024-06-07] MEDS ORDERED: TUMS200 MG PO (11:40)
[2024-06-07] MEDS ORDERED: RENVELA800 MG PO (11:40)
[2024-06-07] MEDS ORDERED: POTASSIUM CHLO20 ME1 PO (11:40)
[2024-06-07] MEDS ORDERED: ONDANSETRON ODT4 MG PO (11:40)
[2024-06-07] MEDS ORDERED: ACETAMINOPHEN-1 EAC4 PO (11:40)
[2024-06-07] MEDS ORDERED: LISINOPRIL10 MG PO (11:40)
[2024-06-07] MEDS ORDERED: INSULIN LI100 UNIT/1 SC (11:40)
[2024-06-07] MEDS ORDERED: GABAPENTIN100 MG PO (11:40)
== END 2024-06-07 15:20 | disposition home or self-care (01) | DRG 673 ==
LOC: ER 23:17 → ERHOLD 06-01 00:53 → MED/SURG3 06-01 02:14 → OBSVTOIN 06-01 13:18
PROVIDERS: ADMIT Internal Medicine; ATTEND Internal Medicine
PROC: 4A043R1 Measurement of Venous Saturation, Peripheral, Percutaneous Approach (ICD-10-PCS; 2024-06-02)
PROC: 0JH63XZ Insertion of Tunneled Vascular Access Device into Chest Subcutaneous Tissue and Fascia, Percutaneous Approach (ICD-10-PCS; principal; 2024-06-03)
PROC: 05HM33Z Insertion of Infusion Device into Right Internal Jugular Vein, Percutaneous Approach (ICD-10-PCS; 2024-06-03)
PROC: B5131ZA Fluoroscopy of Right Jugular Veins using Low Osmolar Contrast, Guidance (ICD-10-PCS; 2024-06-03)
PROC: 5A1D70Z Performance of Urinary Filtration, Intermittent, Less than 6 Hours Per Day (ICD-10-PCS; 2024-06-04)
PROC: 0WHG43Z Insertion of Infusion Device into Peritoneal Cavity, Percutaneous Endoscopic Approach (ICD-10-PCS; 2024-06-06)
PROC: 5A1D70Z Performance of Urinary Filtration, Intermittent, Less than 6 Hours Per Day (ICD-10-PCS; 2024-06-07)
DX: N17.9 Acute kidney failure, unspecified (principal); I50.33 Acute on chronic diastolic (congestive) heart failure; I13.2 Hypertensive heart and chronic kidney disease with heart failure and with stage 5 chronic kidney disease, or end stage renal disease; E87.20 Acidosis, unspecified; N18.6 End stage renal disease; E11.22 Type 2 diabetes mellitus with diabetic chronic kidney disease; Z11.52 Encounter for screening for COVID-19; D63.1 Anemia in chronic kidney disease; E83.51 Hypocalcemia; E83.39 Other disorders of phosphorus metabolism; E87.6 Hypokalemia; I16.0 Hypertensive urgency; E11.40 Type 2 diabetes mellitus with diabetic neuropathy, unspecified; E11.319 Type 2 diabetes mellitus with unspecified diabetic retinopathy without macular edema; Z79.4 Long term (current) use of insulin; I48.0 Paroxysmal atrial fibrillation; I34.0 Nonrheumatic mitral (valve) insufficiency; E03.9 Hypothyroidism, unspecified; I25.10 Atherosclerotic heart disease of native coronary artery without angina pectoris; E66.01 Morbid (severe) obesity due to excess calories; Z68.26 Body mass index [BMI] 26.0-26.9, adult; F41.9 Anxiety disorder, unspecified; M19.91 Primary osteoarthritis, unspecified site; Z79.82 Long term (current) use of aspirin; Z79.899 Other long term (current) drug therapy
CPT/HCPCS: 36415; 36558; 71045; 74470; 76937; 77001; 80048; 80053; 82550; 82948; 83690; 83880; 84100; 84484; 85025; 85610; 86705; 86706; 87340; 93005; 94799; 99152; 99153; 99252; 99284; C1769; C1892; J0360; J0690; J1644; J1940; J2001; J2150; J2250; J2270; J2405; J2765; J7030; J7040; J7050; U0002

== ENCOUNTER → 2024-07-24 | Day surgery (SDC) | payer OTHER ==
[2024-07-23 14:28] LABS: BASOPHILS # (AUTO) 0.1 (0.0-0.1); BASOPHILS % 1.3 % (0.0-1.0); EOSINOPHILS # (AUTO) 0.4 (0.0-0.4); EOSINOPHILS % 4.8 % (0.0-6.0); HEMATOCRIT 36.3 % (34.2-44.1); HEMOGLOBIN 10.6 g/dL (12.0-16.0); LYMPHOCYTES # (AUTO) 1.1 (1.0-3.2); LYMPHOCYTES % 14.5 % (18.0-39.1); MEAN CORPUSCULAR HEMOGLOBIN 25.7 pg (28-32); MEAN CORPUSCULAR HGB CONC 29.2 g/dL (31-35); MEAN CORPUSCULAR VOLUME 88.1 fL (81-99); MONOCYTES # (AUTO) 0.7 (0.2-0.8); MONOCYTES % 9.7 % (4.4-11.3); NEUTROPHILS # (AUTO) 5.2 (2.1-6.9); NEUTROPHILS % 69.4 % (38.7-80.0); PLATELET COUNT 200 x10e3/uL (140-360); RED BLOOD COUNT 4.12 x10e6/uL (3.6-5.1); RED CELL DISTRIBUTION WIDTH 17.2 % (11.7-14.4); WHITE BLOOD COUNT 7.46 x10e3/uL (4.8-10.8)
[2024-07-23 14:59] LABS: INR 0.95; PROTHROMBIN TIME 13.2 seconds (11.9-14.5)
[2024-07-23 15:00] LABS: PARTIAL THROMBOPLASTIN TIME 29.5 seconds (23.8-35.5)
[2024-07-23 15:06] LABS: ANION GAP 20.2 mmol/L (8-16); CALCIUM 7.3 mg/dL (8.4-10.2); CREATININE, SERUM 7.26 mg/dL (0.57-1.11); POTASSIUM 4.2 mmol/L (3.5-5.1)
[~2024-07-24] MED LIST changes: +ACETAMINOPHEN-1 EAC4 PO; +CALCITRIOL0.25 MCG PO; +CEFAZOLIN SODIUM 2 GM ONE; +COQ-10100 MG PO; +DEXAMETHASONE SOD PHOS INJ 4 MG/ML SDV ONE; +FENTANYL CITRATE/PF 100MCG/2 ML INJ ONE; +FUROSEMIDE80 MG PO; +GABAPENTIN100 MG PO; +INSULIN LI100 UNIT/1 SC; +KETAMINE HCL INJ 50 MG/ML 10 ML VIAL ONE; +LANTUS 3ML100 UNITS/ SQ; +LIDOCAINE HCL 1% LOCAL INJ 20 ML VIAL ONE; +LIDOCAINE HCL 2% LOCAL INJ 5 ML SDV VIAL INJ ONE; +LISINOPRIL10 MG PO; +METOCLOPRAMIDE HCL 10 MG/2ML VIAL ONE; +METOPROLOL SUCC25 MG PO; +MIDAZOLAM HCL 2 MG/2 ML VIAL ONE; +NEURONTIN100 MG PO; +ONDANSETRON HCL INJ 2MG/ML 2ML 2 MG/ML VIAL ONE; +PHENYLEPHRINE HCL 1% 10 MG/ML VIAL ONE; +POTASSIUM CHLO20 ME1 PO; +PROPOFOL IV EMULSION 10 MG/ML 20 ML VIAL ONE; +RENVELA800 MG PO; +SODIUM BICARBO650 MG PO; +SOLIQUA 100 UNIT3 ML SQ; +TUMS200 MG PO; +ULTRAM 50MG50 MG PO; +VITAMIN D350 MC1 PO
[2024-07-24 11:15] VITALS: TEMP 97.4
[2024-07-24 11:30] VITALS: BP 130/70; PULSE 78; RESP 16; O2SAT 98
[2024-07-24] MEDS: SODIUM CHLORIDE 0.9% 500ML 500 ML ONE (12:55)
[2024-07-24] MEDS: CEFAZOLIN SODIUM 2 GM ONE (12:55)
== END | disposition home or self-care (01) ==
LOC: OR 07:55
PROVIDERS: ATTEND Surgery
DX: E11.22 Type 2 diabetes mellitus with diabetic chronic kidney disease (principal); I13.2 Hypertensive heart and chronic kidney disease with heart failure and with stage 5 chronic kidney disease, or end stage renal disease; I50.9 Heart failure, unspecified; N18.6 End stage renal disease; D64.9 Anemia, unspecified; E66.01 Morbid (severe) obesity due to excess calories; Z88.8 Allergy status to other drugs, medicaments and biological substances; Z01.810 Encounter for preprocedural cardiovascular examination; Z01.812 Encounter for preprocedural laboratory examination; Z79.82 Long term (current) use of aspirin; Z79.4 Long term (current) use of insulin; Z79.899 Other long term (current) drug therapy; Z99.2 Dependence on renal dialysis
CPT/HCPCS: 36415; 80048; 82948; 85025; 85610; 85730; 93005; J0690; J1100; J2003; J2250; J2371; J2405; J2765; J7040

== ENCOUNTER 2025-01-05 10:23 | Inpatient (IN) | payer OTHER ==
[~2025-01-05] VITALS: Ht 154.9 cm; Wt 77.6 kg
[~2025-01-05 10:23] MED LIST changes: -CEFAZOLIN SODIUM 2 GM ONE; -DEXAMETHASONE SOD PHOS INJ 4 MG/ML SDV ONE; -FENTANYL CITRATE/PF 100MCG/2 ML INJ ONE; -KETAMINE HCL INJ 50 MG/ML 10 ML VIAL ONE; -LIDOCAINE HCL 1% LOCAL INJ 20 ML VIAL ONE; -LIDOCAINE HCL 2% LOCAL INJ 5 ML SDV VIAL INJ ONE; -METOCLOPRAMIDE HCL 10 MG/2ML VIAL ONE; -MIDAZOLAM HCL 2 MG/2 ML VIAL ONE; -ONDANSETRON HCL INJ 2MG/ML 2ML 2 MG/ML VIAL ONE; -PHENYLEPHRINE HCL 1% 10 MG/ML VIAL ONE; -PROPOFOL IV EMULSION 10 MG/ML 20 ML VIAL ONE
[2025-01-05 10:28] VITALS: TEMP 98.2
[2025-01-05 11:19] LABS: BASOPHILS # (AUTO) 0.1 (0.0-0.1); BASOPHILS % 1.4 % (0.0-1.0); EOSINOPHILS # (AUTO) 0.4 (0.0-0.4); EOSINOPHILS % 4.3 % (0.0-6.0); HEMATOCRIT 39.6 % (34.2-44.1); LYMPHOCYTES % 12.4 % (18.0-39.1); MEAN CORPUSCULAR HEMOGLOBIN 27.7 pg (28-32); MEAN CORPUSCULAR HGB CONC 30.3 g/dL (31-35); MEAN CORPUSCULAR VOLUME 91.5 fL (81-99); MONOCYTES # (AUTO) 0.6 (0.2-0.8); MONOCYTES % 7.7 % (4.4-11.3); NEUTROPHILS % 73.8 % (38.7-80.0); PLATELET COUNT 236 x10e3/uL (140-360); RED BLOOD COUNT 4.33 x10e6/uL (3.6-5.1); RED CELL DISTRIBUTION WIDTH 16.6 % (11.7-14.4); WHITE BLOOD COUNT 8.09 x10e3/uL (4.8-10.8)
[2025-01-05] MEDS: ONDANSETRON HCL INJ 2MG/ML 2ML 2 MG/ML VIAL IV STA (11:26)
[2025-01-05] MEDS: HYDRALAZINE HCL 20 MG/ML VIAL IV STA ×2 (11:29→12:25)
[2025-01-05 11:39] LABS: INR 0.87; PROTHROMBIN TIME 12.4 seconds (11.9-14.5)
[2025-01-05 11:40] LABS: PARTIAL THROMBOPLASTIN TIME 30.8 seconds (23.8-35.5)
[2025-01-05 11:48] LABS: ALBUMIN/GLOBULIN RATIO 0.7 (0.8-2.0); ANION GAP 19.6 mmol/L (8-16); BILIRUBIN,TOTAL 0.5 mg/dL (0.2-1.2); CALCIUM 7.5 mg/dL (8.4-10.2); CREATININE, SERUM 6.91 mg/dL (0.57-1.11); MAGNESIUM 1.8 MG/DL (1.3-2.1); POTASSIUM 4.6 mmol/L (3.5-5.1); TOTAL PROTEIN 7.1 g/dL (6.5-8.1)
[2025-01-05 11:54] LABS: TROPONIN I 0.014 ng/mL (0-0.300)
[2025-01-05] MEDS: HYDRALAZINE HCL 25 MG TAB PO ONE (12:26)
[2025-01-05] MEDS: ASPIRIN 81 MG CHEW TAB PO ONE (12:32)
[2025-01-05] MEDS: ENALAPRILAT IV INJ 1.25 MG/ML VIAL IV STA (15:32)
[2025-01-05] MEDS: CLONIDINE HCL 0.1 MG TAB PO ONE (16:49)
[2025-01-05 17:26] VITALS: PULSE 96; RESP 16
[2025-01-05] MEDS: ONDANSETRON HCL INJ 2MG/ML 2ML 2 MG/ML VIAL IV PRN (18:43)
[2025-01-05 19:42] VITALS: BP 184/84; PULSE 85; RESP 18; TEMP 98.2; O2SAT 100
[2025-01-05 20:23] VITALS: BP 184/84; PULSE 85; RESP 18; TEMP 98.2; O2SAT 100
[2025-01-05] MEDS: METOPROLOL TARTRATE 25 MG TAB PO SCH (21:48)
[2025-01-05 23:34] VITALS: BP 154/73; PULSE 82; RESP 18; TEMP 99.1; O2SAT 97
[2025-01-05 23:54] VITALS: BP 184/84; PULSE 85; RESP 18; TEMP 98.2; O2SAT 100
[2025-01-06 03:32] VITALS: BP 144/72; PULSE 79; RESP 18; TEMP 98.7; O2SAT 100
[2025-01-06 06:21] LABS: BASOPHILS # (AUTO) 0.1 (0.0-0.1); BASOPHILS % 1.2 % (0.0-1.0); EOSINOPHILS # (AUTO) 0.2 (0.0-0.4); EOSINOPHILS % 2.5 % (0.0-6.0); HEMATOCRIT 36.2 % (34.2-44.1); HEMOGLOBIN 11.2 g/dL (12.0-16.0); LYMPHOCYTES # (AUTO) 1.1 (1.0-3.2); LYMPHOCYTES % 16.2 % (18.0-39.1); MEAN CORPUSCULAR HEMOGLOBIN 27.7 pg (28-32); MEAN CORPUSCULAR HGB CONC 30.9 g/dL (31-35); MEAN CORPUSCULAR VOLUME 89.6 fL (81-99); MONOCYTES # (AUTO) 0.7 (0.2-0.8); MONOCYTES % 10.7 % (4.4-11.3); NEUTROPHILS # (AUTO) 4.8 (2.1-6.9); NEUTROPHILS % 69.1 % (38.7-80.0); PLATELET COUNT 217 x10e3/uL (140-360); RED BLOOD COUNT 4.04 x10e6/uL (3.6-5.1); RED CELL DISTRIBUTION WIDTH 16.6 % (11.7-14.4)
[2025-01-06 07:09] LABS: ALBUMIN 2.7 g/dL (3.5-5.0); ALBUMIN/GLOBULIN RATIO 0.7 (0.8-2.0); ANION GAP 17.3 mmol/L (8-16); BILIRUBIN,TOTAL 0.5 mg/dL (0.2-1.2); CALCIUM 7.3 mg/dL (8.4-10.2); CHOL/HDL RATIO 3.3 (3.0-3.6); CREATININE, SERUM 6.65 mg/dL (0.57-1.11); POTASSIUM 4.3 mmol/L (3.5-5.1); TOTAL PROTEIN 6.5 g/dL (6.5-8.1)
[2025-01-06 07:21] VITALS: BP 194/91; PULSE 82; RESP 18; TEMP 98.2; O2SAT 100
[2025-01-06 07:23] LABS: TROPONIN I 0.02 ng/mL (0-0.300)
[2025-01-06] MEDS: ASPIRIN 325 MG TAB EC PO SCH (08:56)
[2025-01-06] MEDS: HYDRALAZINE HCL 20 MG/ML VIAL IV PRN (08:59)
[2025-01-06 13:11] LABS: TROPONIN I 0.016 ng/mL (0-0.300)
[2025-01-06] MEDS: FUROSEMIDE PO SCH (13:30)
[2025-01-06] MEDS ORDERED: DEXTROSE 50% SYRINGE 50 ML IV PRN (13:30)
[2025-01-06] MEDS: TRAMADOL HCL 50 MG TAB PO SCH (14:00)
[2025-01-06 15:46] VITALS: BP 194/91; PULSE 84; RESP 18; TEMP 98.2; O2SAT 100
[2025-01-06] MEDS ORDERED: METHYLPREDNISOLONE SOD SUCC 125 MG/2ML VIAL IV SCH (16:00)
[2025-01-06 17:08] VITALS: BP 153/75; PULSE 79; RESP 18; TEMP 98.1; O2SAT 98
[2025-01-06] MEDS: LISINOPRIL 10 MG TAB PO ONE (17:48)
[2025-01-06] MEDS: SEVELAMER CARBONATE 800 MG TAB PO SCH (17:49)
[2025-01-06] MEDS: INSULIN REGULAR, HUMAN 100 UNIT/1 ML SQ SCH (18:00)
[2025-01-06 20:00] VITALS: BP 179/95; PULSE 78; RESP 20; TEMP 98; O2SAT 98
[2025-01-06 21:00] VITALS: BP 179/95; PULSE 78; RESP 20; TEMP 98; O2SAT 98
[2025-01-06] MEDS: METHYLPREDNISOLONE SOD SUCC 40 MG/ML VIAL 1ML IV SCH (22:02)
[2025-01-07] VITALS (9 sets, daily range): BP systolic 154–187; BP diastolic 70–99; PULSE 78–95; RESP 18–20; TEMP 97.9–98.6; O2SAT 96–100
[2025-01-07] MEDS: LEVOTHYROXINE SODIUM 125 MCG TAB PO SCH (05:43)
[2025-01-07 06:30] LABS: BASOPHILS % 0.6 % (0.0-1.0); HEMATOCRIT 38.1 % (34.2-44.1); HEMOGLOBIN 11.9 g/dL (12.0-16.0); LYMPHOCYTES # (AUTO) 0.5 (1.0-3.2); LYMPHOCYTES % 9.6 % (18.0-39.1); MEAN CORPUSCULAR HEMOGLOBIN 27.7 pg (28-32); MEAN CORPUSCULAR HGB CONC 31.2 g/dL (31-35); MEAN CORPUSCULAR VOLUME 88.8 fL (81-99); MONOCYTES % 0.8 % (4.4-11.3); NEUTROPHILS # (AUTO) 4.3 (2.1-6.9); NEUTROPHILS % 88.6 % (38.7-80.0); PLATELET COUNT 215 x10e3/uL (140-360); RED BLOOD COUNT 4.29 x10e6/uL (3.6-5.1); RED CELL DISTRIBUTION WIDTH 16.2 % (11.7-14.4)
[2025-01-07 07:14] LABS: ALBUMIN 2.6 g/dL (3.5-5.0); ALBUMIN/GLOBULIN RATIO 0.7 (0.8-2.0); ANION GAP 16.4 mmol/L (8-16); BILIRUBIN,TOTAL 0.4 mg/dL (0.2-1.2); CALCIUM 7.2 mg/dL (8.4-10.2); CREATININE, SERUM 6.3 mg/dL (0.57-1.11); POTASSIUM 4.4 mmol/L (3.5-5.1); TOTAL PROTEIN 6.3 g/dL (6.5-8.1)
[2025-01-07 07:20] LABS: THYROID STIMULATING HORMONE 1.029 uIU/mL (0.350-4.940)
[2025-01-07] MEDS: ACETAMINOPHEN 325 MG TAB PO PRN ×2 (08:26→21:06)
[2025-01-07] MEDS: ASPIRIN 81 MG ENTERIC COATED PO SCH (08:27)
[2025-01-07] MEDS: SODIUM BICARBONATE 650 MG TAB PO SCH (08:28)
[2025-01-07] MEDS: CALCITRIOL 0.25 MCG CAP PO SCH (08:28)
[2025-01-07] MEDS: FUROSEMIDE 40 MG TAB PO SCH (08:29)
[2025-01-07] MEDS: LISINOPRIL 10 MG TAB PO SCH (08:29)
[2025-01-07] MEDS: METOPROLOL TARTRATE 25 MG TAB PO SCH (08:30)
[2025-01-07] MEDS: AMLODIPINE BESYLATE 10 MG TAB PO SCH (08:30)
[2025-01-07] MEDS ORDERED: LISINOPRIL 10 MG TAB PO SCH (09:00)
[2025-01-07] MEDS ORDERED: GABAPENTIN 100 MG CAP PO SCH (09:00)
[2025-01-07 09:11] LABS: LYMPHOCYTES % (MANUAL) 1 % (19-48); MONOCYTES % (MANUAL) 6 % (3.4-9.0); MYELOCYTES % (MANUAL) 2 % (0-0); NEUTROPHILS % (MANUAL) 91 % (40-74); PLATELET ESTIMATE ADEQUATE; PLATELET MORPHOLOGY COMMENT NORMAL; RBC MORPHOLOGY COMMENT NORMAL
[2025-01-07] MEDS: HYDRALAZINE HCL 25 MG TAB PO PRN (10:25)
[2025-01-07] MEDS: BALSAM PERU/CASTOR OIL 60 GM OINT...G. TP SCH (16:09)
[2025-01-07] MEDS: DIPHENHYDRAMINE HCL INJ 50 MG/ML VIAL IV ONE (17:23)
[2025-01-07] MEDS: LISINOPRIL 10 MG TAB PO ONE (17:44)
[2025-01-07] MEDS: NIFEDIPINE CR 30 MG TAB PO ONE (17:44)
[2025-01-07] MEDS: NIFEDIPINE CR 30 MG TAB PO SCH (23:49)
[2025-01-07] MEDS: CARVEDILOL 12.5 MG TAB PO SCH (23:50)
[2025-01-08] VITALS: BP 168/89; PULSE 102; RESP 18; TEMP 97.9; O2SAT 97
[2025-01-08 04:00] VITALS: BP 153/81; PULSE 77; RESP 18; TEMP 97.8; O2SAT 98
[2025-01-08 08:30] VITALS: BP 148/76; PULSE 97; RESP 20; TEMP 97.9; O2SAT 96
[2025-01-08] MEDS ORDERED: NIFEDIPINE CR 30 MG TAB PO SCH (09:00)
[2025-01-08] MEDS: PANTOPRAZOLE SOD 40 MG TABEC PO SCH (09:17)
[2025-01-08] MEDS: LISINOPRIL 20 MG TAB PO SCH (09:18)
[2025-01-08 09:49] VITALS: BP 148/76; PULSE 97; RESP 20; TEMP 97.9; O2SAT 96
[2025-01-08 11:00] VITALS: BP 143/77; PULSE 79; RESP 18; TEMP 97.9; O2SAT 98
[2025-01-08] MEDS ORDERED: COREG12.5 MG PO (15:44)
[2025-01-08] MEDS ORDERED: PROTONIX40 MG/ML PO (15:44)
[2025-01-08] MEDS ORDERED: LISINOPRIL20 MG PO (15:44)
[2025-01-08] MEDS ORDERED: NIFEDIPINE ER30 M1 PO (15:44)
[2025-01-08] MEDS ORDERED: PREDNISONE20 MG PO (18:47)
[2025-01-08] MEDS ORDERED: MECLIZINE HCL12.5 MG PO (18:47)
== END 2025-01-08 16:00 | disposition home or self-care (01) | DRG 304 ==
LOC: ER 10:27 → ERHOLD 12:32 → MED/SURG3 18:07
PROVIDERS: ADMIT Internal Medicine; ATTEND Internal Medicine
DX: I16.0 Hypertensive urgency (principal); I13.2 Hypertensive heart and chronic kidney disease with heart failure and with stage 5 chronic kidney disease, or end stage renal disease; E11.22 Type 2 diabetes mellitus with diabetic chronic kidney disease; N18.6 End stage renal disease; I50.32 Chronic diastolic (congestive) heart failure; Z99.2 Dependence on renal dialysis; E11.42 Type 2 diabetes mellitus with diabetic polyneuropathy; R42 Dizziness and giddiness; I48.91 Unspecified atrial fibrillation; E03.9 Hypothyroidism, unspecified; I25.10 Atherosclerotic heart disease of native coronary artery without angina pectoris; F41.9 Anxiety disorder, unspecified; M19.90 Unspecified osteoarthritis, unspecified site; T46.5X6A Underdosing of other antihypertensive drugs, initial encounter; E66.9 Obesity, unspecified; Z91.128 Patient's intentional underdosing of medication regimen for other reason; Z79.4 Long term (current) use of insulin; Z79.890 Hormone replacement therapy; Z79.82 Long term (current) use of aspirin; Z86.73 Personal history of transient ischemic attack (TIA), and cerebral infarction without residual deficits; Z90.49 Acquired absence of other specified parts of digestive tract; Z90.710 Acquired absence of both cervix and uterus; Z91.09 Other allergy status, other than to drugs and biological substances; Z88.8 Allergy status to other drugs, medicaments and biological substances
CPT/HCPCS: 36415; 70450; 70551; 71045; 80053; 80061; 82550; 82948; 83735; 83880; 84443; 84484; 85025; 85610; 85730; 93005; 93306; 93880; 99252; 99284; J0360; J1200; J2405; J2470; J2919

== ENCOUNTER 2025-03-05 18:36 | Emergency (ER) | payer OTHER ==
[~2025-03-05] VITALS: Ht 154.9 cm; Wt 74.4 kg
[~2025-03-05 18:36] MED LIST changes: +COREG12.5 MG PO; +LISINOPRIL20 MG PO; +MECLIZINE HCL12.5 MG PO; +PREDNISONE20 MG PO; +PROTONIX40 MG/ML PO
[2025-03-05 19:14] VITALS: TEMP 98.8
[2025-03-05 19:50] LABS: BASOPHILS # (AUTO) 0.1 (0.0-0.1); BASOPHILS % 1.1 % (0.0-1.0); EOSINOPHILS # (AUTO) 0.3 (0.0-0.4); EOSINOPHILS % 4.3 % (0.0-6.0); HEMATOCRIT 35.7 % (34.2-44.1); LYMPHOCYTES # (AUTO) 1.3 (1.0-3.2); LYMPHOCYTES % 18.1 % (18.0-39.1); MEAN CORPUSCULAR HEMOGLOBIN 27.8 pg (28-32); MEAN CORPUSCULAR HGB CONC 30.8 g/dL (31-35); MEAN CORPUSCULAR VOLUME 90.4 fL (81-99); MONOCYTES # (AUTO) 0.6 (0.2-0.8); MONOCYTES % 8.6 % (4.4-11.3); NEUTROPHILS # (AUTO) 4.9 (2.1-6.9); NEUTROPHILS % 67.6 % (38.7-80.0); PLATELET COUNT 221 x10e3/uL (140-360); RED BLOOD COUNT 3.95 x10e6/uL (3.6-5.1); RED CELL DISTRIBUTION WIDTH 14.5 % (11.7-14.4); WHITE BLOOD COUNT 7.22 x10e3/uL (4.8-10.8)
[2025-03-05 20:01] LABS: ALBUMIN 2.8 g/dL (3.5-5.0); ALBUMIN/GLOBULIN RATIO 0.7 (0.8-2.0); ANION GAP 19.8 mmol/L (8-16); BILIRUBIN,TOTAL 0.4 mg/dL (0.2-1.2); CALCIUM 8.3 mg/dL (8.4-10.2); CREATININE, SERUM 8.45 mg/dL (0.57-1.11); POTASSIUM 4.8 mmol/L (3.5-5.1); TOTAL PROTEIN 6.7 g/dL (6.5-8.1)
[2025-03-05 21:33] VITALS: PULSE 82; RESP 14
[2025-03-05 21:48] VITALS: BP 134/87; PULSE 80; RESP 12; TEMP 98.2; O2SAT 98
== END 2025-03-05 21:54 | disposition home or self-care (01) ==
LOC: ER 19:38
DX: R94.31 Abnormal electrocardiogram [ECG] [EKG] (principal); I12.0 Hypertensive chronic kidney disease with stage 5 chronic kidney disease or end stage renal disease; E11.22 Type 2 diabetes mellitus with diabetic chronic kidney disease; E11.65 Type 2 diabetes mellitus with hyperglycemia; N18.6 End stage renal disease; E11.42 Type 2 diabetes mellitus with diabetic polyneuropathy; I50.9 Heart failure, unspecified; I48.91 Unspecified atrial fibrillation; E03.9 Hypothyroidism, unspecified; I25.10 Atherosclerotic heart disease of native coronary artery without angina pectoris
CPT/HCPCS: 36415; 80053; 85025; 93005; 99284

== ENCOUNTER → 2025-06-26 | Day surgery (SDC) | payer OTHER ==
[~2025-06-26] MED LIST changes: +CLONIDINE HCL0.2 MG PO; +DEXTROSE 5% 250ML 250 ML IV ONE; +DIALYVITE 800-1 EACH PO; +EPHEDRINE SULFATE INJ 50 MG/ML VIAL ONE; +GLUCAGON FOR INJ 1 MG VIAL ONE; +GLYCOPYRROLATE INJ 0.2 MG/ML VIAL ONE; +HYOSCYAMINE SULFATE 0.5 MG/ML INJ ONE; +IMODIUM A-D2 M2 PO; +LACTATED RINGER'S 1,000 ML ONE; +LIDOCAINE HCL 2% LOCAL INJ 5 ML SDV VIAL INJ ONE; +MELATONIN5 M3 PO; +METHOCARBAMOL500 MG PO; +OZEMPIC0.25 MG/02 SC; +PLAVIX75 MG PO; +PROPOFOL IV EMULSION 10 MG/ML 20 ML VIAL ONE; +ROPINIROLE HC0.25 MG PO; +SODIUM CHLORIDE 0.9% 500ML 500 ML ONE; +SODIUM CHLORIDE 0.9% INJ 10 ML VIAL ONE; +TYLENOL #3 PO; +vit d2 PO
[2025-06-26 11:12] LABS: BASOPHILS % 0.9 % (0.0-1.0); EOSINOPHILS % 4.3 % (0.0-6.0); LYMPHOCYTES % 17.1 % (18.0-39.1); MONOCYTES % 13.3 % (4.4-11.3); NEUTROPHILS % 63.9 % (38.7-80.0); RED CELL DISTRIBUTION WIDTH 14.2 % (11.7-14.4)
[2025-06-26 11:18] LABS: INR 1.03
[2025-06-26 11:21] LABS: EST GLOMERULAR FILTRATION RATE 7.0 ML/MIN (>=60)
[2025-06-26 13:27] VITALS: TEMP 97.5
[2025-06-26 13:55] VITALS: BP 117/66; PULSE 78; RESP 18; O2SAT 98
[2025-06-26 14:51] LABS: CDIFF AG QUIK CHEK **POSITIVE** (NEGATIVE)
[2025-06-26 14:52] LABS: CDIFF TOX QUIK CHEK NEGATIVE (NEGATIVE)
== END | disposition home or self-care (01) ==
LOC: OR 09:53
PROVIDERS: ATTEND Internal Medicine Gastroenterology
DX: K62.89 Other specified diseases of anus and rectum (principal); I48.91 Unspecified atrial fibrillation; E06.3 Autoimmune thyroiditis; E11.40 Type 2 diabetes mellitus with diabetic neuropathy, unspecified; I70.213 Atherosclerosis of native arteries of extremities with intermittent claudication, bilateral legs; I25.10 Atherosclerotic heart disease of native coronary artery without angina pectoris; I48.0 Paroxysmal atrial fibrillation; I10 Essential (primary) hypertension; E78.5 Hyperlipidemia, unspecified; E66.811 Obesity, class 1; Z68.31 Body mass index [BMI] 31.0-31.9, adult; Z88.8 Allergy status to other drugs, medicaments and biological substances; Z79.82 Long term (current) use of aspirin; Z79.891 Long term (current) use of opiate analgesic; Z90.49 Acquired absence of other specified parts of digestive tract; Z79.02 Long term (current) use of antithrombotics/antiplatelets; Z79.890 Hormone replacement therapy; Z79.85 Long-term (current) use of injectable non-insulin antidiabetic drugs; Z01.810 Encounter for preprocedural cardiovascular examination; Z01.812 Encounter for preprocedural laboratory examination; Z01.818 Encounter for other preprocedural examination
CPT/HCPCS: 36415; 45380; 45384; 80048; 82948; 83630; 83993; 85025; 85610; 85730; 86140; 87045; 87177; 87324; 87328; 87449; 93005; J0690; J1610; J1980; J2003; J2704; J7040; J7121; 45378; 45385